=== PATIENT | female | born 2005 | race Caucasian/White ===

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

== ENCOUNTER 2024-03-23 09:05 | Emergency (ER) | payer MEDICAID, SELFPAY ==
[2024-03-23 09:07] VITALS: BP 123/67; PULSE 90; RESP 16; TEMP 36.7; O2SAT 97
--- NOTE | 2024-03-23 09:35 | HMH.EDGENADL ---
Discharge Plan Disposition Patient Disposition: Home, Self-Care Condition: Good Prescriptions Prescriptions: New cefadroxil 500 mg capsule 500 mg PO BID Qty: 10 0RF No Action norgestimate-ethinyl estradiol 1 EACH tablet 1 each PO DAILY omeprazole 20 MG capsule,delayed release(DR/EC) 20 mg PO DAILY paroxetine HCl 20 mg tablet 20 mg PO DAILY Patient Comments: TAKE 1 TABLET BY MOUTH DAILY. ergocalciferol (vitamin D2) 1,250 mcg (50,000 unit) capsule 50,000 unit PO WEEKLY Patient Comments: TAKE 1 CAPSULE BY MOUTH TWO TIMES A WEEK. montelukast 10 mg tablet 10 mg PO HS Patient Comments: TAKE 1 TABLET BY MOUTH NIGHTLY. loratadine 10 mg tablet 10 mg PO DAILY Patient Comments: TAKE 1 TABLET BY MOUTH DAILY. ibuprofen 400 mg tablet 400 mg PO Q8H PRN (Reason: pain) Qty: 20 0RF Referrals Follow up/Referrals: Ketan Fonseca [Primary Care Provider] - See instructions Isael Rodriguez MD [Staff Physician] - See instructions Activity Restrictions/Add. Instructions Additional Instructions/Restrictions: Stay well hydrated. Take anitbiotics as prescribed. Call Dr. Rodriguez office for follow up regarding blood in urine. Return if bleeding worsens or worsening pain despite ibuprofen and Tylenol at home. Follow-up the spleen lesion found on CT with your PCP. Please follow up with your primary care provider in 2-3 days. Please return to ED if your symptoms worsen, change in location, change in severity, new symptoms develop or if you become concerned for your health. Clinical Impressions Clinical Impression: Hematuria, Lesion of spleen Instructions Patient Instructions: DI for Acute Abdominal Pain Print Language Print Language: Tamazight Discharge ED Provider: Kishore Mcmahan Adult HPI General Chief complaint: Abdominal Pain Stated complaint: blood in urine,abd pain Time Seen by Provider: 03/23/24 09:16 Mode of Arrival: Ambulatory Source of Information: Patient Limitations: No Limitations Description of Symptoms (Recalled from ER Triage Doc. by RN): Complaint of lower abdomen pain with frequent bloody urination that started yesterday. History of Present Illness HPI narrative: Patient is a 18-year-old female with no significant past medical history who presents today for hematuria and suprapubic abdominal pain. She reports that her symptoms began last night around 8:30 PM she reports that she took some Tylenol and some ice packs and tried to lay down and was able to sleep through the night, but the pain was worse this morning. She reports that she was having some difficulty urinating yesterday, now is able to urinate after drinking more water, but reports persistent bright red blood in the urine. No clots visualized. She reports she is still having normal nonbloody bowel movements. Denying any nausea or vomiting or fevers. Denies radiation of the abdominal pain. No vaginal bleeding or vaginal discharge. Denies any chance of being . Related Data Home Medications ?Medication ?Instructions ?Recorded ?Confirmed norgestimate 0.25 mg-ethinyl 1 each PO DAILY control 02/15/20 07/03/22 estradiol 35 mcg tablet omeprazole 20 mg capsule,delayed 20 mg PO DAILY GERD 02/15/20 07/03/22 release ergocalciferol (vitamin D2) 1,250 50,000 unit PO WEEKLY Supplement 03/12/22 07/03/22 mcg (50,000 unit) capsule loratadine 10 mg tablet 10 mg PO DAILY Allergy symptoms 03/12/22 07/03/22 montelukast 10 mg tablet 10 mg PO HS Allergy symptoms 03/12/22 07/03/22 paroxetine HCl 20 mg tablet 20 mg PO DAILY Depression 03/12/22 07/03/22 Previous Rx's ?Medication ?Instructions ?Recorded ibuprofen 400 mg tablet 400 mg PO Q8H PRN pain #20 tabs 04/12/22 cefadroxil 500 mg capsule 500 mg PO BID #10 caps 03/23/24 Allergies Allergy/AdvReac Type Severity Reaction Status Date / Time No Known Allergies Allergy Verified 07/03/22 14:04 [facility] Disclaimer: The information contained in this section may have been updated after the patient was seen, as this information can be updated by other users. Social History Smoking Status: Current every day smoker alcohol intake: never current occupational status: other Travel in the last 8 weeks: Inside the [place] ROS Obtained: Yes All systems reviewed & no additional complaints except as documented Physical Exam General General appearance: alert and in no apparent distress Head Head exam: atraumatic and normocephalic Eye Eye exam: Present PERRL and EOMI ENT ENT exam: Present normal oropharynx Neck Neck exam: Present full ROM and trachea midline Chest Chest inspection: Present symmetric chest wall rise Respiratory Respiratory exam: Present normal lung sounds bilaterally; Absent stridor Cardiovascular Cardiovascular exam: Present regular rate and normal rhythm Abdominal Exam Abdominal exam: Present soft and tenderness (suprapubic and llq); Absent distention, guarding or rebound Extremities Exam Extremities exam: Present full ROM Neurological Exam Neurological exam: Present alert and oriented X3 Psychiatric Psychiatric exam: Present normal mood Skin Skin exam: Present warm and dry Medical Decision Making Medical Records Screening: Per USPSTF and CDC recommendations, given the prevalence of disease in our region, it is our hospital?s policy to screen for HIV and viral Hepatitis for all patients aged 18 and over and those with ongoing risk factors. Abel Inquiry Pt receiving controlled substance: No Vital Signs: 03/23/24 09:07 03/23/24 10:31 03/23/24 11:00 Temperature 98.0 F Temperature Source Oral Pulse Rate 64 61 Pulse Rate [Radial] 90 Respiratory Rate 16 Blood Pressure 103/43 L 91/54 L Blood Pressure [Right Arm] 123/67 Blood Pressure Mean 74 66 Blood Pressure Mean [Right Arm] 85 Blood Pressure Source Blood Pressure Source [Right Arm] Automatic Cuff Blood Pressure Position Blood Pressure Position [Right Arm] Sitting 02 Sat by Pulse Oximetry 97 99 99 Oxygen Delivery Method Room Air 03/23/24 12:00 03/23/24 12:50 Temperature 98.0 F Temperature Source Oral Pulse Rate 64 Pulse Rate [Radial] Respiratory Rate 16 Blood Pressure 102/56 L 102/56 L Blood Pressure [Right Arm] Blood Pressure Mean 70 Blood Pressure Mean [Right Arm] Blood Pressure Source Automatic Cuff Blood Pressure Source [Right Arm] Blood Pressure Position Sitting Blood Pressure Position [Right Arm] 02 Sat by Pulse Oximetry Oxygen Delivery Method Room Air Lab Data Lab Results 03/23/24 09:13: Urine Color Yellow, Urine Appearance Clear, Urine pH 6.0, Ur Specific [place] 1.020, Urine Protein Trace, Urine Glucose (UA) Negative, Urine Ketones Negative, Urine Blood 3+ A, Urine Nitrate Negative, Urine Bilirubin Negative, Urine Urobilinogen 0.2, Ur Leukocyte Esterase 1+ A, Urine RBC 5-10, Urine WBC 3-5, Ur Squamous Epith Cells None, Urine Bacteria Trace 03/23/24 09:26: WBC 13.8 H, RBC 4.12 L, Hgb 13.5, Hct 41.4, MCV 100.5 H, MCH 32.8 H, MCHC 32.6, RDW 13.4, Plt Count 255, MPV 6.8 L, Neut % (Auto) 79.7, Lymph % (Auto) 15.0, [place] % (Auto) 3.8, Eos % (Auto) 1.0, Baso % (Auto) 0.5, Neut # (Auto) 11.0 H, Lymph # (Auto) 2.1, [place] # (Auto) 0.5, Eos # (Auto) 0.1, Baso # (Auto) 0.1, Total Counted 100, Neutrophils % (Manual) 77 H, Lymphocytes % (Manual) 21, Monocytes % (Manual) 2, Platelet Estimate Normal, Macrocytosis 1+, Sodium 139, Potassium 3.4 L, Chloride 105, Carbon Dioxide 27, Anion Gap 10.4, BUN 7, Creatinine 0.60, Estimated Creat Clear 138, Estimated GFR 129, Est GFR ( Amer) 156, Glucose 85, Calcium 9.1, Total Bilirubin 0.4, AST 33, ALT 19, Alkaline Phosphatase 77, Total Protein 7.5, Albumin 4.8, Globulin 2.7, Albumin/Globulin Ratio 1.8, Lipase 65, Serum HCG, Qual Negative, HIV 1&2 Antibody Rapid Nonreactive 03/23/24 09:26 03/23/24 09:26 Orders (Tests/Meds): ED MEDICATIONS Discontinued Medications Generic Name Dose Route Start Last Admin Trade Name Freq PRN Reason Stop Dose Admin Lactated Ringer's 1,000 mls @ 999 mls/hr 03/23/24 09:48 03/23/24 09:53 Lactated Ringer's 1000 Ml Bag IV 03/23/24 10:48 999 mls/hr .Q1H1M ONE Administration Iopamidol 75 ml 03/23/24 10:25 03/23/24 10:26 Iopamidol-370 (76%);100ml Bottle IV 03/23/24 10:26 75 ml ONCE ONE Administration Ketorolac Tromethamine 15 mg 03/23/24 09:48 03/23/24 09:53 Ketorolac 30mg/Ml Vial IV 03/23/24 09:49 15 mg ONCE ONE Administration Sodium Chloride 10 ml 03/23/24 09:32 Sodium Chloride 0.9% 10ml Flush Syringe IV 04/22/24 09:31 NEEDED PRN Maintain IV Site Sodium Chloride 10 ml 03/23/24 10:25 03/23/24 10:26 Sodium Chloride 0.9% 10ml Syr (Rad Only) IV 04/22/24 10:24 10 ml NEEDED PRN Administration Maintain IV Site ORDERS Category Date Time Status CT abdomen pelvis w con Stat Cat Scan 03/23/24 09:48 Completed Complete Blood Count Man Dif Stat Lab 03/23/24 09:26 Completed Comprehensive Metabolic Panel Stat Lab 03/23/24 09:26 Completed HCG Qualitative, Serum Stat Lab 03/23/24 09:26 Completed HIV (1&2) Antibody Rapid Stat Lab 03/23/24 09:26 Completed Hep C Ab with Reflex to RNA Stat Lab 03/23/24 09:26 Received Lipase Stat Lab 03/23/24 09:26 Completed UA [Urinalysis and Microscopic] Stat Lab 03/23/24 09:13 Completed Urine Culture Stat Micro 03/23/24 09:13 Received Medical Decision Narrative: In summary, this 18-year-old female presents to the emergency department today with suprapubic abdominal pain and hematuria. On initial evaluation patient is afebrile, hemodynamically stable and in no acute distress.. Differential diagnosis includes but is not limited to hemorrhagic cystitis, pyelonephritis, nephrolithiasis, ureterolithiasis, JOSEFINA. Based on these concerns, I ordered CBC CMP lipase CT abdomen pelvis urinalysis test. Patient received Toradol for treatment. Labs personally reviewed demonstrate no evidence of anemia, mild leukocytosis to 13.8, favored to be reactive. Mild hypokalemia 3.4. Urinalysis notable for 3+ blood, +1 leukocyte esterase with trace bacteria. Given patient's consistent symptoms with possible hemorrhagic cystitis, will treat with cefadroxil outpatient. Patient will be given outpatient urology follow-up if blood in urine persists. CT imaging personally interpreted demonstrate no acute intra-abdominal pathology.Spontaneous diagnosed in 12 of this is confirmed by the radiologist final read. Increased vascularity of a splenic lesion which could represent hemangioma. Patient made aware of this finding and will follow-up outpatient.. On reassessment patient reports improvement in her pain, still having some scant hematuria. Made aware of that this could be secondary to infection or urinary tract infection. Will treat with antibiotics and should blood in urine persist, she is given outpatient follow-up for urology and possible cystoscopy outpatient.. Patient is tolerating oral intake in the emergency department and has remained in no acute distress with no significant vital sign changes. At this time it was felt that the patient was safe to be discharged home. The patient was in agreement with this plan. The patient was given strict return precautions prior to being discharged from the emergency department. Critical Care Critical Care Time Critical Care Time: No
[2024-03-23 09:40] LABS: Microscopic, Urine URINE MICROSCOPIC (MICROSCOPIC)
[2024-03-23 09:40] LABS: MANUAL DIFFERENTIAL MANUAL DIFFERENTIAL (MANUAL DIFF)
--- NOTE | 2024-03-23 09:48 | CT_ITS ---
FINAL REPORT TECHNIQUE: After the administration of oral and intravenous contrast, axial images were obtained through the abdomen and pelvis by computed tomography. The study was performed with techniques to keep radiation dose as low as reasonably achievable, (ALARA). Individual dose reduction techniques using automated exposure control or adjustment of mA and/or kV according to the patient's size were employed. CLINICAL HISTORY: suprapubic and rlq ttp, hematuria COMPARISON: None FINDINGS: Abdomen: The lung bases are clear. The liver parenchyma is homogeneous. The gallbladder is present. There is a rounded l low-attenuation lesion in the spleen measuring 2.5 cm in diameter seen on image 25 of series 3. On coronal imaging, there is increased peripheral vascularity of this lesion. The pancreas, adrenals and kidneys appear unremarkable. The aorta is normal in caliber. There is no free fluid or adenopathy. Pelvis: The appendix is not identified. There are no secondary findings of appendicitis. The uterus is anteverted. The urinary bladder is unremarkable. There is no free fluid or adenopathy. IMPRESSION: Splenic lesion with increased vascularity at the margin which could represent hemangioma. Follow-up ultrasound recommended. No localized mass or inflammatory reaction. Reviewed, Interpreted and Dictated by Kyle Morse MD Transcribed by Mariama England Authenticated and [facility]
[2024-03-23 09:49] LABS: Appearance,Urine CLEAR (Clear); Bilirubin,Urine Negative (Negative); Blood, Urine 3+ (Negative); Color,Urine YELLOW (Yellow); Glucose,Urine (UA) Negative (Negative); Ketones,Urine Negative (Negative); Leukocyte Esterase,Urine 1+ (Negative); Nitrate,Urine Negative (Negative); Protein,Urine TRACE (Negative); Urobilinogen,Urine 0.2 EU/dl (0.2)
[2024-03-23 09:49] LABS: Albumin Level 4.8 g/dl (3.5-5.0); Chloride 105 mmol/L (98-107); Potassium 3.4 mmoL/L (3.5-5.1); Sodium 139 mmol/L (136-145)
[2024-03-23 09:52] LABS: Alanine Aminotransferase 19 U/L (12-78); Albumin/Globulin Ratio 1.8 (1.1-1.8); Alkaline Phosphatase 77 U/L (38-126); Anion Gap 10.4 mEq/L (5-15); Aspartate Amino Transferase 33 U/L (14-36); Bilirubin,Total 0.4 mg/dl (0.2-1.3); Blood Urea Nitrogen 7 mg/dl (7-17); Carbon Dioxide 27 mmol/L (22.0-30.0); Creatinine Clearance Estimated 138 mL/min (50-200); Estimated Glomerular Filt Rate 129 ml/min (>60); GFR (African American) 156 ML/MIN (>60); Globulin 2.7 g/dL (1.3-3.2); Total Protein,Serum 7.5 g/dl (6.3-8.2)
[2024-03-23 09:53] LABS: Calcium 9.1 mg/dl (8.4-10.2); Glucose 85 mg/dl (74-100)
[2024-03-23] MEDS: LACTATED RINGERS 1000ML 1,000 ML 999 ML IV (09:53)
[2024-03-23] MEDS: KETOROLAC 30MG/ML VIAL 15 MG IV (09:53)
[2024-03-23 10:04] LABS: Basophils # 0.1 K/mm3 (0-0.2); Basophils % 0.5 % (0.1-2.0); Eosinophils # 0.1 K/mm3 (0.0-0.4); Hematocrit 41.4 % (37.0-47.0); Hemoglobin 13.5 g/dL (12.2-16.2); Lymphocytes # 2.1 K/mm3 (0.7-4.5); Mean Corpuscular HGB Conc 32.6 g/dL (31.8-35.4); Mean Corpuscular Hemoglobin 32.8 pg (27.0-31.2); Mean Corpuscular Volume 100.5 fl (81-99); Mean Platelet Volume 6.8 fl (7.4-10.4); Monocytes # 0.5 K/mm3 (0.1-1.0); Monocytes % 3.8 % (1.7-9.3); Neutrophils % 79.7 % (37.0-80.0); Platelet Count 255 K/mm3 (142-424); Red Blood Count 4.12 M/mm3 (4.20-5.40); Red Cell Distribution Width 13.4 % (11.5-17.5); White Blood Count 13.8 K/mm3 (4.5-13.0)
[2024-03-23 10:06] LABS: Lipase 65 U/L (23-300)
[2024-03-23 10:09] LABS: Bacteria,Urine Trace /lpf
[2024-03-23 10:09] LABS: HCG Qualitative, Serum Negative (Negative)
[2024-03-23] MEDS: IOPAMIDOL-370 (76%);100ML BOTTLE 75 ML IV (10:26)
[2024-03-23] MEDS: SODIUM CHLORIDE 0.9% 10ML SYR (RAD ONLY) 10 ML IV (10:26)
[2024-03-23 10:31] VITALS: BP 103/43; PULSE 64; O2SAT 99
[2024-03-23 11:00] VITALS: BP 91/54; PULSE 61; O2SAT 99
[2024-03-23 11:20] LABS: HIV (1&2) Antibody Rapid NONREACTIVE (NONREACTIVE)
[2024-03-23 11:34] LABS: Lymphocytes % 21 % (10-50); Macrocytosis 1+; Monocytes % 2 % (2-9); Neutrophils % 77 % (42-76); Platelet Estimate Normal; Total Cells Counted 100
[2024-03-23 12:00] VITALS: BP 102/56
--- NOTE | 2024-03-23 12:32 | PC.NURSE ---
DR ZEPEDA AT BEDSIDE TO UPDATE PT
[2024-03-23 12:50] VITALS: BP 102/56; PULSE 64; RESP 16; TEMP 36.7; O2SAT 99
[2024-03-24 05:10] LABS: HCV Ab Non Reactive (Non Reactive)
== END 2024-03-23 12:50 | disposition home or self-care (01) ==
PROVIDERS: Emergency Provider Emergency Medicine; PCP Pediatrics
DX: R31.9 Hematuria, unspecified (principal); D73.89 Other diseases of spleen; R10.30 Lower abdominal pain, unspecified
CPT/HCPCS: 74177; 80053; 81001; 83690; 84703; 85007; 85014; 85018; 85048; 85049; 86803; 87086; 87389; 96361; 96374; 99284; J1885; J7120; Q9967

== ENCOUNTER 2024-05-13 22:21 | Emergency (ER) | payer MEDICAID, SELFPAY ==
[2024-05-13 22:22] VITALS: BP 160/99; PULSE 88; RESP 18; TEMP 36.6; O2SAT 98; BMI 20.3
[2024-05-13 22:27] VITALS: BMI 20.3
--- OUTSIDE RECORDS SUMMARY | 2024-05-13 22:27 | XMS_ITS | Encounter Summary ---
Author Organization [facility] Address [address] [place] [id number] Care Team Providers Care Academic Counselor Name Role Phone Georges Wong M.D. Primary Care Provider [phone] Encounter Details Date Type Department Care Team (Late st Contact Info) Description 2004 Orders Only [facility] Department of Radiology [address] [place] [id number] [place] [address] Social History Tobacco Use Types Packs/Day Years Used Date Smoking Tobacco: Never Assessed Comments Unknown Sex and Gender Information Value Date Recorded Sex Assigned at Not on file Legal Sex Female 5:17 AM EST Gender Identity Not on file Sexual Orientation Not on file documented as of this encounter Plan of Treatment Not on file documented as of this encounter Procedures Procedure Name Priority Date/Time Associated Diagnosis Comments ULT HIPS RADIOLOGIST ONLY Routine 2004 6:14 PM EST documented in this encounter Results * ULT HIPS DDH (2004 6:14 PM EST) Anatomical Region Laterality Modality ULT MISCELLANEOUS Ultrasound 2004 6:14 PM EST Narrative 2004 7:19 PM EST CLINICAL HISTORY: ??Right hip click. FINDINGS: ?? Right hip: The bony roof of the acetabulum is well-formed and covers more than 50% of the femoral head in neutral position. The superior bony acetabular rim is angular. ??The cartilaginous acetabular roof is narrow and satisfactorily covers the femoral head. ??The labrum is in normal position. During dynamic testing (Chakraborty) there was no instability demonstrated. Left hip: The bony roof of the acetabulum is well-formed and covers more than 50% of the femoral head in neutral position. The superior bony acetabular rim is angular. ??The cartilaginous acetabular roof is narrow and satisfactorily covers the femoral head. ??The labrum is in normal position. During dynamic testing (Chakraobrty) there was no instability demonstrated. IMPRESSION: ??Normal ultrasound examination. ??(Broughton Type I acetabular morphology). ??No dynamic instability. ??In the absence of other disorders, this hip is unlikely to become dislocated and requires no further ultrasound follow-up. ??(The hips should continue to be examined clinically at routine clinical assessments). Ordering Physician: LANDON HO Attending Physician: NICOLA BHAKTA Procedure Note Nicola Bhakta M.D. - 06/26/2009 CLINICAL HISTORY: Right hip click. FINDINGS: Right hip: The bony roof of the acetabulum is well-formed and covers more than 50%of the femoral head in neutral position. The superior bony acetabular rim is angular. The cartilaginous acetabularroof is narrow and satisfactorily covers the femoral head. The labrum is in normalposition. During dynamic testing (Chakraborty) there was no instability demonstrated. Left hip: The bony roof of the acetabulum is well-formed and covers more than 50%of the femoral head in neutral position. The superior bony acetabular rim is angular. The cartilaginous acetabularroof is narrow and satisfactorily covers the femoral head. The labrum is in normalposition. During dynamic testing (Chakraborty) there was no instability demonstrated. IMPRESSION: Normal ultrasound examination. (Broughton Type I acetabularmorphology). No dynamic instability. In the absence of other disorders, this hip is unlikely tobecome dislocated and requires no further ultrasound follow-up. (The hips should continue to beexamined clinically at routine clinical assessments). Ordering Physician: LANDON HO Attending Physician: NICOLA BHAKTA us Landon Ho M.D. US ORDERABLES Final Resu lt documented in this encounter Visit Diagnoses Not on filedocumented in this encounter Care Teams Academic Counselor Relationship Specialty Start Date End Date [place] [address] PCP - General 06/14/08 documented as of this encounter
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
--- OUTSIDE RECORDS SUMMARY | 2024-05-13 22:27 | XMS_ITS | Clinical Summary ---
Author Organization [facility] Address [address] [place] [address] Care Team Providers Care Manufacturing Software Engineer Name Role Phone Georges Wong M.D. Primary Care Provider [phone] Source Comments [facility] is fully rolled out with thefollowing exceptions:General Clinical Research [facility] Allergies No known active allergies Medications No known medications Social History Tobacco Use Types Packs/Day Years Used Date Smoking Tobacco: Never Assessed Comments Unknown Sex and Gender Information Value Date Recorded Sex Assigned at Not on file Legal Sex Female 5:17 AM EST Gender Identity Not on file Sexual Orientation Not on file Last Filed Vital Signs Vital Sign Reading [...] - - Body Mass Index - - Plan of Treatment Health Maintenance Due Date Last Done Comments MMR IMMUNIZATION (1 of 1 - Standard series) 2005 DTAP/Tdap/Td IMMUNIZATION (1 - Tdap) 2011 VARICELLA IMMUNIZATION (1 of 2 - 13+ 2-dose series) 2017 HPV IMMUNIZATION (1 - 3-dose series) 2019 HEPATITIS B IMMUNIZATION (1 of 3 - 19+ 3-dose series) 2023 AMB SEASONAL FLU VACCINE (#1) 02/23/2024 COVID-19 Vaccine (1 - 2023-2 5 season) 2024 HIB IMMUNIZATION Aged Out No longer e ligible based on patient's age to complete this topic IPV IMMUNIZATION Aged Out No longer e ligible based on patient's age to complete this topic MCV4 IMMUNIZATION Aged Out No longer eligible based on patient's age to complete this topic PNEUMOCOCCAL IMMUNIZATION Aged Out No longer eligible based on patient's age to complete this topic Respiratory Syncytial Virus (RSV) <20mo Aged Out No longer eligible b ased on patient's age to complete this topic Care Teams Manufacturing Software Engineer Relationship Specialty Start Date End Date Georges Wong M.D. [facility] [address] [place] [address] PCP - General 06/14/08
--- OUTSIDE RECORDS SUMMARY | 2024-05-13 22:27 | XMS_ITS | Encounter Summary ---
Author Organization [facility] Address [address] [place] [address] Care Team Providers Care Rn Womens Health Name Role Phone Unavailable Primary Care Provider Unavailabl e Encounter Details Date Type Department Care Team (Late st Contact Info) Description 2004 Hospital Encounter [facility] Department of Radiology [address] [place] [phone] Social History Tobacco Use Types Packs/Day Years Used Date Smoking Tobacco: Never Assessed Comments Unknown Sex and Gender Information Value Date Recorded Sex Assigned at Not on file Legal Sex Female 5:17 AM EST Gender Identity Not on file Sexual Orientation Not on file documented as of this encounter Plan of Treatment Not on file documented as of this encounter Visit Diagnoses Not on filedocumented in this encounter
--- OUTSIDE RECORDS SUMMARY | 2024-05-13 22:28 | XMS_ITS | Encounter Summary ---
Author Organization [place] [address] Care Team Providers Care Earth Science Technician Name Role Phone Maryann Figueroa APRN Primary Care Provider [phone] Reason for Visit * Reason Onset Date Comments Medication Refill 04/28/2023 Encounter Details Date Type Department Care Team (Late Contact Info) Description 04/28/2023 Refill [facility] [address] [place] [address] Heaven Alamo MD Medication Refill Social History Tobacco Use Types Packs/Day Years Used Date Smoking Tobacco: Every Day Cigarettes Last attempted to quit: 2015 Smokeless Tobacco: Never Alcohol Use Standard Drinks/Week Comments No 0 (1 standard drink = 0.6 oz pur e alcohol) Overall Financial Resource Strain (CARDIA) Answe r Date Recorded How hard is it for you to pa y for the very basics like food, housing, medical care, and heating? Not hard at all 02/23/2020 PHQ-2 Answer Date Recorded PHQ-2 Score 0 11/14/2018 Hunger Vital Sign Answer Date Recorded Within the past 12 months, y ou worried that your food would run out before you got the money to buy more. Never true 02/23/20 20 Within the past 12 months, t he food you bought just didn't last and you didn't have money to get more. Never true 02/23/2020 PRAPARE - Transportation Answer Date Re corded In the past 12 months, has l ack of transportation kept you from medical appointments or from getting medications? No 06/2019 In the past 12 months, has l ack of transportation kept you from meetings, work, or from getting things needed for daily living? No 02/23/2020 Sexually Active Control Partners Comments Never Comments No Sex and Gender Information Value Date Recorded Sex Assigned at Not on file Legal Sex Female 6:55 AM EDT Gender Identity Not on file Sexual Orientation Not on file documented as of this encounter Ordered Prescriptions Prescription Sig Dispense Quantity Refills Last Filled Start Date End Date montelukast (SINGULAIR) 10 mg Oral TabletIndications: Bilateral chronic serous otitis media Take 1 Tablet by mouth nightly. 30 Tablet 2 04/29/2023 09/20/2023 documented in this encounter Plan of Treatment Not on file documented as of this encounter Goals Goal Patient Goal Type Associated Problems Recent Progress Patient-Stated? Author Maintain a healthy diet, exercise regularly and maintain an ideal body weight General No Tyra Ferreira CCMA Stay Tobacco Free Lifestyle No Shakira Light CCMA documented as of this encounter Visit Diagnoses Diagnosis Bilateral chronic serous otitis media Simple or unspecified chronic serous otitis media documented in this encounter Discontinued Medications Medication Sig Discontinue Reason Start Date End Da te montelukast (SINGULAIR) 10 mg Oral TabletIndications:Bilate ral chronic serous otitis media Take 1 Tablet by mouth nightly. Reorder 09/18/2022 04/28/2023 documented as of this encounter Care Teams Earth Science Technician Relationship Specialty Start Date End Date Maryann Fig[place]ero[place] [address] [place] [address] PCP - General Nurse Practitioner-Family 05/21/17 documented as of this encounter
--- OUTSIDE RECORDS SUMMARY | 2024-05-13 22:28 | XMS_ITS | Encounter Summary ---
Author Organization [facility] [place] [address] Care Team Providers Care Parole Board Member Name Role Phone Maryann Figueroa APRN Primary Care Provider [phone] Reason for Visit * Reason Comments Medication Refill Encounter Details Date Type Department Care Team (Late st Contact Info) Description 08/18/2022 Refill [facility] [address] [place] [phone] Maryann Figueroa APRN [address] [place], [place] [id number] Medication Refill Social History Tobacco Use Types [...] Refills Last Filled Start Date End Date ergocalciferol (DRISDOL) 1,250 mcg (50,000 unit) Oral Capsule Take 1 capsule by mouth two times a week. 4 Capsule 3 08/20/2022 documented in this encounter Plan of Treatment [...] Diagnoses Not on filedocumented in this encounter Discontinued Medications Medication Sig Discontinue Reason Start Date End Da te ergocalciferol (DRISDOL) 1,250 mcg (50,000 unit) Oral Capsule Take 1 capsule by mouth two times a week. 05/03/2022 08/20/2022 documented as of this encounter Care Teams Parole Board Member Relationship Specialty Start Date End Date Maryann Figueroa APRN [address] [place], [place] [address] PCP - General Nurse Practitioner-Family 05/21/17 documented as of this encounter
--- OUTSIDE RECORDS SUMMARY | 2024-05-13 22:28 | XMS_ITS | Encounter Summary ---
Author Organization [facility] [place] [address] Care Team Providers Care Meat Team Lead Name Role Phone Maryann Figueroa APRN Primary Care Provider [phone] Reason for Visit * Reason Comments Otalgia Left ear Encounter Details Date Type Department Care Team (Late st Contact Info) Description 08/14/2022 9:10 AM EST Office Visit [facility] [place] [address] [phone] William Fonseca MD [address] [place] [address] [place] [address] Acute otitis media with effusion of left ear (Primary Dx) Social History Tobacco Use Types Packs/Day Years Used Date Smoking Tobacco: Every Day Cigarettes Last attempted to quit: 2016 Smokeless Tobacco: Never Tobacco Cessation:Ready to Q uit: Not Asked; Counseling Given: Not Answered Alcohol Use Standard Drinks/Week Comments No 0 [...] Sign Reading Time Taken Comments Blood Pressure 120/74 08/14/2022 9:17 AM EST Pulse 78 08/14/2022 9:17 AM EST Temperature 36.8 ??C (98.2 ??F) 08/14/2022 9:17 AM ES T Respiratory Rate 18 08/14/2022 9:17 AM EST Oxygen Saturation 98% 08/14/2022 9:17 AM EST Inhaled Oxygen Concentration - - Weight 57.2 kg (126 lb) 08/14/2022 9:17 AM EST Height 166.4 cm (5' 5.5 ) 08/14/2022 9:17 AM EST Body Mass Index 20.65 08/14/2022 9:17 AM EST Body Mass Index Percentile 41.59% 08/14/2022 9:1 7 AM EST Growth Chart: [facility] (Girls, 2- 20 Years) documented in this encounter Ordered Prescriptions Prescription Sig Dispense Quantity Refills Last Filled Start Date End Date amoxicillin (AMOXIL) 875 mg Oral TabletIndications: Acute otitis media with effusion of left ear Take 1 Tablet by mouth 2 times daily for 7 days. 14 Tablet 08/14/2022 08/21/2022 documented in this encounter Progress Notes * William Fonseca MD - 08/14/2022 9:10 AM EST Assessment Diagnoses and all orders for this visit: Acute otitis media with effusion of left ear - amoxicillin (AMOXIL) 875 mg Oral Tablet; Take 1 Tablet by mouth 2 times daily for 7 days. Dispense: 14 Tablet; Refill: 0 Will treat left otitis media with amoxicillin per above follow-up as needed Progress Note: Vitals: 08/14/22 0917 BP: 120/74 Pulse: 78 Resp: 18 Temp: 98.2 ??F (36.8 ??C) TempSrc: Temporal SpO2: 98% Weight: 126 lb (57.2 kg) Height: 5' 5.5 (1.664 m) SUBJECTIVE: Chief Complaint Patient presents with ??? Otalgia Left ear HPI: Minda has one week of ear pain with associated muffled hearing and a sensation of fluid in her ear. She has frequent ear infections for which antibiotics usually provide relief. No fevers. No known sick contacts. No other upper respiratory sx such as nasal congestion or sore throat. Review of Systems Constitutional: Negative for fatigue and fever. HENT: Positive for ear pain and hearing loss. Negative for congestion, rhinorrhea, sinus pressure, sinus pain, sneezing and sore throat. Respiratory: Negative for cough. Cardiovascular: Negative for leg swelling. Gastrointestinal: Negative for nausea and vomiting. Musculoskeletal: Negative for myalgias. Neurological: Negative for headaches. OBJECTIVE: Physical Exam HENT: Right Ear: Hearing, ear canal and external ear normal. No middle ear effusion. Tympanic membrane isscarred. Left Ear: A middle ear effusion is present. Ears: Comments: Left otitis media Nose: Nose normal. Mouth/Throat: Mouth: Mucous membranes are moist. Pharynx: Oropharynx is clear. Eyes: Pupils: Pupils are equal, round, and reactive to light. Cardiovascular: Rate and Rhythm: Normal rate and regular rhythm. Pulses: Normal pulses. Heart sounds: Normal heart sounds. Pulmonary: Effort: Pulmonary effort is normal. Breath sounds: Normal breath sounds. Abdominal: General: Abdomen is flat. Palpations: Abdomen is soft. Skin: General: Skin is warm and dry. Capillary Refill: Capillary refill takes less than 2 seconds. Neurological: General: No focal deficit present. Mental Status: She is alert. documented in this encounter Plan of Treatment Not on file documented as of this encounter Goals Goal Patient Goal Type Associated Problems Recent Progress Patient-Stated? Author Maintain a healthy diet, exercise regularly and maintain an ideal body weight General No Tyra Ferreira CCMA Stay Tobacco Free Lifestyle No Shakira Light CCMA documented as of this encounter Visit Diagnoses Diagnosis Acute otitis media with effusion of left ear- Primary documented in this encounter Care Teams Meat Team Lead Relationship Specialty Start Date End Date Maryann Figueroa APRN [address] [place] [address] PCP - General Nurse Practitioner-Family 05/21/17 documented as of this encounter
--- OUTSIDE RECORDS SUMMARY | 2024-05-13 22:28 | XMS_ITS | Encounter Summary ---
Author Organization [facility] [place] [address] Care Team Providers Care Food And Beverage Server Name Role Phone Maryann Figueroa APRN Primary Care Provider [phone] Encounter Details Date Type Department Care Team (Latest Contact Info) Description 03/28/2023 Travel Social History Tobacco Use Types Packs/Day Years [...] on filedocumented in this encounter Care Teams Food And Beverage Server Relationship Specialty Start Date End Date Maryann Figueroa APRN [address] [place], [place] [address] PCP - General Nurse Practitioner-Family 05/21/17 documented as of this encounter
--- OUTSIDE RECORDS SUMMARY | 2024-05-13 22:28 | XMS_ITS | Encounter Summary ---
Author Organization [place] [address] Care Team Providers Care Operation Manager Name Role Phone Maryann Figueroa APRN Primary Care Provider [phone] Reason for Visit * Reason Comments Medication Refill Encounter Details Date Type Department Care Team (Late st Contact Info) Description 01/25/2024 Refill [facility] [address] [place] [phone] Maryann Figueroa APRN [address] [place] [address] Medication Refill Social History Tobacco Use Types [...] End Date montelukast (SINGULAIR) 10 mg Oral TabletIndications:B ilateral chronic serous otitis media Take 1 Tablet by mouth nightly. 30 Tablet 2 01/27/2024 documented in this encounter Miscellaneous Notes * Telephone Encounter - Mayra Preston CPhT - 01/27/2024 3:23 PM EDT Montelukast- Medication refill request deferred to office staff. Min Reason: Please review diagnosis associated with medication. documented in this encounter Plan of Treatment [...] media Take 1 Tablet by mouth nightly. 09/20/2023 01/27/2024 documented as of this encounter Care Teams Operation Manager Relationship Specialty Start Date End Date Maryann Fig[place]ero[place] [address] [place] [address] PCP - General Nurse Practitioner-Family 05/21/17 documented as of this encounter
--- OUTSIDE RECORDS SUMMARY | 2024-05-13 22:28 | XMS_ITS | Referral Summary ---
Author Organization [facility] ALIE GRANT Address [address] [place] [address] Phone Care Team Providers Care Natural Gas Plant Technician Name Role Phone Maryann Figueroa APRN Primary Care Provider Encounters Date Type Department Care Team Description 04/13/2024 9:40 AM EDT Office Visit [place] [address] [place] [address] Ketan Fonseca MD Splenic lesion (Primary Dx) 04/12/2024 Travel 03/26/2024 Refill [place] [address] [place] [address] Maryann Figueroa APRN Medication Refill 03/17/2024 Travel 03/17/2024 1:20 PM EDT Telemedicine [place] [address] [address] [place] [address] Ketan Fonseca MD Major depressive disorder, recurrent episode, mild (HCC) (Primary Dx) from Last 3 Months Allergies No known active allergies Medications omeprazole (PRILOSEC) 20 mg Oral Capsule, Delayed Release(E.C.) Take 1 Capsule by mouth daily. 30 Capsule Active loratadine (CLARITIN) 10 mg Oral TabletIndicatio ns:Acute middle ear effusion, left,Seasonal allergic rhinitis due to pollen Take 1 Tablet by mouth daily. 30 Tablet 2 4 Active montelukast (SINGULAIR) 10 mg Oral TabletIndicatio ns:Bilateral chronic serous otitis media Take 1 Tablet by mouth nightly. 30 Tablet 2 4 Active desvenlafaxine succinate (PRISTIQ) 50 mg Oral Tablet Sustained Release 24 hrIndications:M rob depressive disorder, recurrent episode, mild (HCC) Take 1 Tablet by mouth daily. 30 Tablet 3 4 Active chlorhexidine (HIBICLENS) 4 % Top LiquidIndicatio ns:Acne vulgaris Apply topically as needed for Wound Care. 473 mL 1 4 Active clindamycin-fauzia zoyl peroxide (BENZACLIN) Top GelIndications: Acne vulgaris Apply topically 2 times daily. 50 g 2 4 Active ergocalciferol (DRISDOL) 1,250 mcg (50,000 unit) Oral Capsule Take 1 Capsule by mouth two times a week. 4 Capsule 3 4 Active Active Problems Problem Noted Date Diagnosed Date Vitamin D deficiency 04/18/2022 Overview (04/18/2022): On replacement. Tinnitus, bilateral 01/03/2022 Ear pain, bilateral 01/03/2022 Conductive hearing loss of l eft ear with unrestricted hearing of right ear 01/03/2022 Marijuana use 09/29/2021 Assessment & Plan (09/29/2021 2:38 PM EDT): Encouraged cessation Cigarette smoker 09/29/2021 Assessment & Plan (09/29/2021 2:38 PM EDT): Encouraged cessation Major depressive disorder, recurrent episode, mi ld 04/07/2020 Overview (04/18/2022): Side effects to effexor in past Improved, would like to wean off paxil Insomnia, persistent 07/02/2017 Overview (11/14/2021): Night time routine Avoid caffeine, stop smoking cigs and MJ. Ok for PRN trazodone. Difficulty concentrating 07/02/2017 Overview (07/02/2017): Increase tenex to twice a day. If no daytime improvement should follow-up in 4 weeks to discuss further treatment. Given linden forms to get completed before next appointment. Immunizations Name Administration Dates Next Due DTaP 02/24/2009, 6,02/14/2005,11/30,2004 DTaP, Unspecified Formulation 02/24/2009 ,02/11/2006,02/14/2005,11/30 DTaP/Hep B/IPV 2004 HPV 9 Valent 11/21/2017,05/21/2017 Hepatitis A, Ped/Adol, 2 Dose 11/21/2017, 017 Hepatitis B, Ped/Adol 02/11/2006,03/22/2005,06/25 HiB (PRP-OMP) 02/14/2005,2004,2004 HiB, Unspecified Formulation 02/14/2005,11/25/19 05,2004 IPV 02/24/2009, 5,2004,09/19 Influenza Vaccine Quadrivalent 05/21/2017 LAST MANUFACTURED 2010-Pneum ococcal Conjugate 7 Valent 02/14/2005,2004,2004 MMR 02/24/2009,08/01/2005 Meningococcal Conjugate 08/23/2020,02/20/2016 Meningococcal MCV4, Unspecif ied Formulation 02/20/2016 Surreal Ink SARS-CoV-2 Bivalent B ooster Vaccine 12+ Years ([place] border) 04/18/2022 Pfizer SARS-CoV-2 Vaccine Tr is-Sucrose 12+ Years ([place] Cap) 09/29/2021,08/29/2021 Pneumococcal Conjugate Vacci ne 13 Valent 02/14/2005,2004,2004 Tdap 02/20/2016 Varicella 02/24/2009,08/01/2005 Social History Tobacco Use Types Packs/Day Years [...] all 02/23/2020 PHQ-2 Answer Date Recorded PHQ-2 Total Score 0 04/13/2024 Hunger Vital Sign Answer Date Recorded Within [...] Sign Reading Time Taken Comments Blood Pressure 112/76 04/13/2024 9:45 AM EDT Pulse 98 04/13/2024 9:45 AM EDT Temperature 36.6 ??C (97.8 ??F) 04/13/2024 9:45 AM ED T Respiratory Rate 20 04/13/2024 9:45 AM EDT Oxygen Saturation 99% 04/13/2024 9:45 AM EDT Inhaled Oxygen Concentration - - Weight 61.9 kg (136 lb 6.4 oz) 04/13/2024 9:45 A M EDT Height 166.4 cm (5' 5.5 ) 01/11/2023 1:29 PM EDT Body Mass Index 22.35 01/11/2023 1:29 PM EDT Plan of Treatment Not on file Goals Goal Patient Goal Type Associated Problems Recent Progress Patient-Stated? Author Maintain a healthy diet, exercise regularly and maintain an ideal body weight General No Tyra Ferreira CCMA Stay Tobacco Free Lifestyle No Osgood, Shakira, CCMA Insurance [address] [place] [id number] [facility] [place] [address] [place] [facility] [place] [address] [facility] [place] [address] MDR Advance Directives For more information, please contact: [phone] Documents on File Type Date Recorded Patient Manager Apple Expl anation GUARDIANSHIP ORDER 05/21/2017 2:00 PM Care Teams Natural Gas Plant Technician Relationship Specialty Start Date End Date Maryann Figueroa APRN [address] [place] [address] PCP - General Nurse Practitioner-Family 05/21/17
--- OUTSIDE RECORDS SUMMARY | 2024-05-13 22:28 | XMS_ITS | Encounter Summary ---
Author Organization [facility] [place] [address] Care Team Providers Care Safety Counselor Name Role Phone Maryann Figueroa APRN Primary Care Provider [phone] Encounter Details Date Type Department Care Team (Latest Contact Info) Description 04/12/2024 Travel Social History Tobacco Use Types Packs/Day [...] on filedocumented in this encounter Care Teams Safety Counselor Relationship Specialty Start Date End Date Maryann Figueroa APRN [address] [place], [place] [address] PCP - General Nurse Practitioner-Family 05/21/17 documented as of this encounter
--- OUTSIDE RECORDS SUMMARY | 2024-05-13 22:28 | XMS_ITS | Encounter Summary ---
Author Organization [facility] [place] [address] Care Team Providers Care Wringer And Setter Name Role Phone Maryann Figueroa APRN Primary Care Provider [phone] Reason for Visit * Reason Comments Medication Refill Encounter Details Date Type Department Care Team (Late st Contact Info) Description 03/06/2022 Refill [facility] [address] [place] [id number] Maryann Figueroa APRN [address] [place] [address] Medication Refill Social History Tobacco Use [...] Refills Last Filled Start Date End Date traZODone (DESYREL) 50 mg Oral TabletIndications: Insomnia, persistent Take 1 Tablet by mouth nightly. 30 Tablet 2 03/06/2022 4 omeprazole (PRILOSEC) 20 mg Oral Capsule, Delayed Release(E.C.) TAKE 1 CAPSULE BY MOUTH DAILY 30 Capsule 2 03/06/2022 3 documented in this encounter Plan of Treatment Not on file documented as of this encounter Goals Goal Patient Goal Type Associated Problems Recent Progress Patient-Stated? Author Maintain a healthy diet, exercise regularly and maintain an ideal body weight General No Tyra Ferreira, KATE Stay Tobacco Free Lifestyle No Shakira Light CCMA documented as of this encounter Visit Diagnoses Diagnosis Insomnia, persistent Persistent disorder of initiating or maintaining sleep documented in this encounter Discontinued Medications Medication Sig Discontinue Reason Start Date End Da te omeprazole (PRILOSEC) 20 mg Oral Capsule, Delayed Release(E.C.) TAKE 1 CAPSULE BY MOUTH DAILY 10/09/2021 03/06/2022 traZODone (DESYREL) 50 mg Oral TabletIndications:Insomn ia, persistent Take 1 Tablet by mouth nightly. 11/14/2021 03/06/2022 documented as of this encounter Care Teams Wringer And Setter Relationship Specialty Start Date End Date Maryann Figueroa APRN [address] [place], [place] [address] PCP - General Nurse Practitioner-Family 05/21/17 documented as of this encounter
--- OUTSIDE RECORDS SUMMARY | 2024-05-13 22:28 | XMS_ITS | Encounter Summary ---
Author Organization [facility] [place] [address] Care Team Providers Care Wrapper Counter Name Role Phone Maryann Figueroa APRN Primary Care Provider [phone] Reason for Visit * Reason Comments Medication Refill Encounter Details Date Type Department Care Team (Late st Contact Info) Description 09/20/2023 Refill [facility] [address] [place] [phone] Maryann Figueroa APRN [address] [place], [place] [id number] Medication Refill Social History Tobacco Use Types [...] Refills Last Filled Start Date End Date loratadine (CLARITIN) 10 mg Oral TabletIndications: Acute middle ear effusion, left,Seasonal allergic rhinitis due to pollen Take 1 Tablet by mouth daily. 30 Tablet 2 09/20/2023 omeprazole (PRILOSEC) 20 mg Oral Capsule, Delayed Release(E.C.) Take 1 Capsule by mouth daily. 30 Capsule 09/20/2023 hydrOXYzine (VISTARIL) 25 mg Oral CapsuleIndications :Generalized anxiety disorder Take 1 Capsule by mouth 3 times daily as needed. 30 Capsule 09/20/2023 4 documented in this encounter Miscellaneous Notes * Telephone Encounter - Sharda Garzon CPhT - 09/20/2023 10:29 AM EDT Omeprazole Medication Refill Protocol failed due to appointment. executive producer Reason: Chart review does not show a coded diagnosis in protocol timeframe. [facility] Action: Approved 30-day supply of medication Routed to office staff for outreach to schedule appointment. Hydroxyzine Medication Refill Protocol not available for this medication. Routed to office staff. Loratadine Medication Refill Protocol not available for this medication. Routed to office staff. documented in this encounter Plan of Treatment Not on file documented as of this encounter Goals Goal Patient Goal Type Associated Problems Recent Progress Patient-Stated? Author Maintain a healthy diet, exercise regularly and maintain an ideal body weight General No Tyra Ferreira CCMA Stay Tobacco Free Lifestyle No Shakira Light CCMA documented as of this encounter Visit Diagnoses Diagnosis Acute middle ear effusion, left Seasonal allergic rhinitis due to pollen Generalized anxiety disorder documented in this encounter Discontinued Medications Medication Sig Discontinue Reason Start Date End Da te omeprazole (PRILOSEC) 20 mg Oral Capsule, Delayed Release(E.C.) Take 1 Capsule by mouth daily. 04/29/2023 09/20/2023 loratadine (CLARITIN) 10 mg Oral TabletIndications:Acute middle ear effusion, left,Seasonal allergic rhinitis due to pollen Take 1 Tablet by mouth daily. 04/29/2023 09/20/2023 hydrOXYzine (VISTARIL) 25 mg Oral CapsuleIndications:Gener alized anxiety disorder Take 1 Capsule by mouth 3 times daily as needed. 08/30/2023 09/20/2023 documented as of this encounter Care Teams Wrapper Counter Relationship Specialty Start Date End Date Maryann Figueroa APRN [address] [place] [address] PCP - General Nurse Practitioner-Family 05/21/17 documented as of this encounter
--- OUTSIDE RECORDS SUMMARY | 2024-05-13 22:28 | XMS_ITS | Encounter Summary ---
Author Organization [facility] [place] [address] Care Team Providers Care Latexer Name Role Phone Maryann Figueroa APRN Primary Care Provider [phone] Reason for Visit * Reason Comments Medication Refill Encounter Details Date Type Department Care Team (Late st Contact Info) Description 07/16/2022 Refill [facility] [address] [place] [address] Heaven [place] MD Medication Refill Social [...] Tablet by mouth nightly. 30 Tablet 2 07/17/2022 09/18/2022 documented in this encounter Plan of Treatment [...] media Take 1 Tablet by mouth nightly. 02/08/2022 07/17/2022 documented as of this encounter Care Teams Latexer Relationship Specialty Start Date End Date Maryann Figueroa APRN [address] [place], [place] [address] PCP - General Nurse Practitioner-Family 05/21/17 documented as of this encounter
--- OUTSIDE RECORDS SUMMARY | 2024-05-13 22:28 | XMS_ITS | Encounter Summary ---
Author Organization [facility] [address] Care Team Providers Care Wildlife Conservation Officer Name Role Phone Maryann Figueroa APRN Primary Care Provider [phone] Reason for Visit * Reason Onset Date Comments Medication Refill Central Patient Navigator Outreach 09/20/2023 med refills 1st Encounter Details Date Type Department Care Team (Late st Contact Info) Description 09/20/2023 Refill [facility] [address] [place] [address] Heaven [place] MD Medication Refill; Central Patient Navigator Outreach (med refills 1st ) Social History Tobacco Use Types Packs/Day Years [...] 1 Tablet by mouth nightly. 30 Tablet 09/20/2023 01/27/2024 documented in this encounter Miscellaneous Notes * Telephone Encounter - Allie Martines - 09/20/2023 12:15 PM EDT Patient Outreach: Medication refill appointment, 1st Chriss Primary Care Attempt Count: inbound Care Gaps Addressed refrigeration systems installer: Annual Wellness Visit, Appointment, and Flu Shot Outcome: Pharmacy team refilled a 30-day chriss supply of Montelukast. Routed to office:Please review for 90 day refill and call patient to advise. and pt declined stating her [employer] company states she has insurance but the pharmacy says she does not. * Telephone Encounter - Shakira Garzon - 09/20/2023 12:08 PM EDT Patient Outreach: Medication refill appointment, 1st Chriss Primary Care Attempt Count: 1st Care Gaps Addressed refrigeration systems installer: Appointment Outcome: Left message to return call at and [employer] Message Sent. * Telephone Encounter - Sharda Garzon CPhT - 09/20/2023 10:58 AM EDT Montelukast Medication Refill Protocol failed due to appointment. security guard Reason: Past follow-up date noted by protocol. Protocol required follow-up within 6 months. Patient most recently had appointment on 03/28/23 but associated diagnosis not assessed. security guard Action: Approved chriss 30-day supply of medication Routed to Patient Navigator team for outreach to schedule appointment. documented in this encounter Plan of Treatment [...] media Take 1 Tablet by mouth nightly. 04/29/2023 09/20/2023 documented as of this encounter Care Teams Wildlife Conservation Officer Relationship Specialty Start Date End Date Maryann Figueroa APRN [address] [place] [address] PCP - General Nurse Practitioner-Family 05/21/17 documented as of this encounter
--- OUTSIDE RECORDS SUMMARY | 2024-05-13 22:28 | XMS_ITS | Encounter Summary ---
Author Organization [place] [place] [address] Care Team Providers Care Managing Editor Name Role Phone Maryann Figueroa APRN Primary Care Provider [phone] Encounter Details Date Type Department Care Team (Late st Contact Info) Description 03/17/2024 1:20 PM EDT Telemedicine [facility] [address] [place] [address] Ketan Fonseca MD [address] [place] [address] Major depressive disorder, recurrent episode, mild (HCC) (Primary Dx) Social History Tobacco Use Types [...] Refills Last Filled Start Date End Date desvenlafaxine succinate (PRISTIQ) 50 mg Oral Tablet Sustained Release 24 hrIndications:Major depressive disorder, recurrent episode, mild (HCC) Take 1 Tablet by mouth daily. 30 Tablet 3 03/17/2024 documented in this encounter Progress Notes * Ketan Fonseca MD - 03/17/2024 1:20 PM EDT Patient presented today for routine care follow-up through a video visit. Patient has reviewed the terms and conditions of service as part of the registration for today's visit. A video visit does not replace a [id number] exam and further services may be necessary. We are conducting her video visit in a private space and this video visit is being conducted in accordance with state telehealth/video visit regulations. HPI: Weans self off paxil. Was making her too aggressive. Hydroxyzine - was taking that more regularly which helped with panic attacks - 4-5 x per week. But taking the hydroxyzine that frequently caused other side effects. Has been on effexor and paxil in the past. Review of Systems Constitutional: Negative. Negative for activity change, fatigue, fever and unexpected weight change. HENT: Negative. Negative for trouble swallowing. Eyes: Negative. Negative for photophobia, pain, discharge, itching and visual disturbance. Respiratory: Negative. Negative for cough, chest tightness, shortness of breath and wheezing. Cardiovascular: Negative. Negative for chest pain, palpitations and leg swelling. Gastrointestinal: Negative. Negative for abdominal distention, abdominal pain, blood in stool, constipation and diarrhea. Musculoskeletal: Negative. Negative for arthralgias, back pain, gait problem, joint swelling, myalgias, neck pain and neck stiffness. Skin: Negative. Negative for color change, pallor, rash and wound. Neurological: Negative. Negative for dizziness and headaches. Hematological: Negative for adenopathy. Psychiatric/Behavioral: Negative. Negative for confusion, sleep disturbance and suicidal ideas. Thepatient is not nervous/anxious. Exam: Constitutional: NAD, appropriately groomed. Appears comfortable. HENT: No gross deformities. Voice normal. No facial swelling noted. Eyes: Extra occular movements grossly intact. Visible portions of the eyes appear normal. No redness or discharge visible via casual video inspection. Cardiopulmonary: Does not appear in cardiopulmonary distress. Easy respirations w/o labored breathing. No audible gross wheezing or breathlessness. Neuro: Alert and oriented. Conversational. No gross deficits or facial droop appreciated on video evaluation. Psych: Appropriate mood and affect. Normal conversation and thought content. Assessment Diagnoses and all orders for this visit: Major depressive disorder, recurrent episode, mild (HCC) (Chronic) Overview: Side effects to effexor in past Improved, would like to wean off paxil Orders: - desvenlafaxine succinate (PRISTIQ) 50 mg Oral Tablet Sustained Release 24 hr; Take 1 Tablet by mouth daily. Dispense: 30 Tablet; Refill: 3 documented in this encounter Plan of Treatment Not on file documented as of this encounter Goals Goal Patient Goal Type Associated Problems Recent Progress Patient-Stated? Author Maintain a healthy diet, exercise regularly and maintain an ideal body weight General No Tyra Ferreira CCMA Stay Tobacco Free Lifestyle No Shakira Light CCMA documented as of this encounter Visit Diagnoses Diagnosis Major depressive disorder, recurrent episode, mild (HCC)- Primary Major depressive disorder, recurrent episode, mild documented in this encounter Discontinued Medications Medication Sig Discontinue Reason Start Date End Da te PARoxetine (PAXIL) 20 mg Oral TabletIndications:Major depressive disorder, recurrent episode, mild (HCC) Take 1 Tablet by mouth daily. Cancelled by 09/29/2021 03/17/2024 traZODone (DESYREL) 50 mg Oral TabletIndications:Insomn ia, persistent Take 1 Tablet by mouth nightly. Cancelled by 03/06/2022 03/17/2024 hydrOXYzine (VISTARIL) 25 mg Oral CapsuleIndications:Gener alized anxiety disorder Take 1 Capsule by mouth 3 times daily as needed. Cancelled by 09/20/2023 03/17/2024 PARoxetine (PAXIL) 20 mg Oral TabletIndications:Major depressive disorder, recurrent episode, mild (HCC) Take 1 Tablet by mouth daily. Cancelled by 09/29/2021 03/17/2024 traZODone (DESYREL) 50 mg Oral TabletIndications:Insomn ia, persistent Take 1 Tablet by mouth nightly. Cancelled by 03/06/2022 03/17/2024 documented as of this encounter Care Teams Managing Editor Relationship Specialty Start Date End Date Maryann Figueroa APRN [address] [place] [address] PCP - General Nurse Practitioner-Family 05/21/17 documented as of this encounter
--- OUTSIDE RECORDS SUMMARY | 2024-05-13 22:28 | XMS_ITS | Encounter Summary ---
Author Organization [place] [place] [address] Care Team Providers Care Earth Burner Name Role Phone Maryann Figueroa APRN Primary Care Provider [phone] Reason for Visit * Reason Comments Medication Refill Encounter Details Date Type Department Care Team (Late st Contact Info) Description 06/20/2022 Refill [facility] [address] [place] [phone] Maryann Figueroa APRN [address] [place], [place] [id number] Medication Refill Social History Tobacco Use Types [...] Refills Last Filled Start Date End Date hydrOXYzine (VISTARIL) 25 mg Oral CapsuleIndications :Generalized anxiety disorder Take 1 Capsule by mouth 3 times daily as needed. 30 Capsule 06/20/2022 documented in this encounter Plan of Treatment Not on file documented as of this encounter Goals Goal Patient Goal Type Associated Problems Recent Progress Patient-Stated? Author Maintain a healthy diet, exercise regularly and maintain an ideal body weight General No Tyra Ferreira CCMA Stay Tobacco Free Lifestyle No Shakira Light CCMA documented as of this encounter Visit Diagnoses Diagnosis Generalized anxiety disorder documented in this encounter Discontinued Medications Medication Sig Discontinue Reason Start Date End Da te hydrOXYzine (VISTARIL) 25 mg Oral CapsuleIndications:Gener alized anxiety disorder Take 1 Capsule by mouth 3 times daily as needed. 05/01/2022 06/20/2022 documented as of this encounter Care Teams Earth Burner Relationship Specialty Start Date End Date Maryann Figuero[place] [address] [place] [address] PCP - General Nurse Practitioner-Family 05/21/17 documented as of this encounter
--- OUTSIDE RECORDS SUMMARY | 2024-05-13 22:28 | XMS_ITS | Encounter Summary ---
Author Organization [place] [address] Care Team Providers Care Financial Services Intern Name Role Phone Maryann Figueroa APRN Primary Care Provider [phone] Reason for Visit * Reason Comments Medication Refill Encounter Details Date Type Department Care Team (Late st Contact Info) Description 02/08/2022 Refill [facility] [address] [place] [address] Heaven [place] MD Medication Refill Social [...] Tablet by mouth nightly. 30 Tablet 2 02/08/2022 07/17/2022 documented in this encounter Plan of Treatment [...] media Take 1 Tablet by mouth nightly. 12/06/2021 02/08/2022 documented as of this encounter Care Teams Financial Services Intern Relationship Specialty Start Date End Date Maryann Figueroa APRN [address] [place], [place] [address] PCP - General Nurse Practitioner-Family 05/21/17 documented as of this encounter
--- OUTSIDE RECORDS SUMMARY | 2024-05-13 22:28 | XMS_ITS | Encounter Summary ---
Author Organization [place] [address] Care Team Providers Care Franchise Development Manager Name Role Phone Maryann Figueroa APRN Primary Care Provider [phone] Reason for Referral * Ultrasound (Routine) - Pending Review Specialty Diagnoses / Procedures Referred By Contac t Referred To Contact Radiology Diagnoses Splenic lesion Procedures US SPLEEN Terrance Fonseca MD [address] [place] [address] Phone: tel: fax: Referral ID Status Reason Start Date Expiration Date V isits Requested Visits Authorized [id number] Pending Review 04/13/2024 04/13/2025 1 1 Reason for Visit * Reason Comments Follow-up Lesion on spleen Encounter Details Date Type Department Care Team (Late st Contact Info) Description 04/13/2024 9:40 AM EDT Office Visit [facility] [place] [address] Terrance Fonseca MD [address] [place] [address] Splenic lesion (Primary Dx) Social History Tobacco Use Types Packs/Day Years Used Date Smoking Tobacco: Every Day Cigarettes Last attempted to quit: 2016 Smokeless Tobacco: Never Alcohol Use Standard Drinks/Week [...] oz) 04/13/2024 9:45 A M EDT Height - - Body Mass Index 22.35 01/11/2023 1:29 PM EDT documented in this encounter Progress Notes * Terrance Fonseca MD - 04/13/2024 9:40 AM EDT Assessment & Plan 1. Splenic lesion. The lesion on the spleen could potentially be an incidentaloma, which is often benign. The scan results from [facility] are pending. Once received, they will be reviewed and discussed. If further clarification is needed, additional imaging of the spleen may be recommended. She reports no trauma or pain in the spleen area. Addendum: see below 2. Urinary Tract Infection (UTI). She was prescribed antibiotics for a suspected UTI on March 23, which resolved her symptoms of hematuria. No further symptoms are reported at this time. Assessment & Plan Splenic lesion CT scan reviewed from [facility] 2.5 cm lesion in spleen most consistent with hemangioma. Recommended ultrasound to confirm. Orders: US SPLEEN; Future No follow-ups on file. Subjective Wilber Kumar is a 18 y.o. female Chief Complaint Patient presents with Follow-up Lesion on spleen History of Present Illness The patient is a 18-year-old female who presents for evaluation of a lesion on her spleen. She sought medical attention at [facility] on 03/23/2024 due to symptoms suggestiveof a urinary tract infection (UTI), including hematuria (blood in urine) and fever. During this visit, a lesion was discovered on her spleen. She was prescribed antibiotics for the UTI, which successfully resolved the hematuria. Currently, she reports feeling well and denies any history of trauma to the spleen area. Review of Systems Constitutional: Negative. Negative for [...] and suicidal ideas. Thepatient is not nervous/anxious. Objective Blood pressure 112/76, pulse 98, temperature 97.8 ??F (36.6 ??C), temperature source Temporal, resp. rate 20, weight 136 lb 6.4 oz (61.9 kg), SpO2 99%. Body mass index is 22.35 kg/m??. Physical Exam Physical Exam Vitals reviewed. Constitutional: General: She is not in acute distress. Appearance: She is well-developed. She is not diaphoretic. HENT: Head: Normocephalic and atraumatic. Right Ear: External ear normal. Left Ear: External ear normal. Mouth/Throat: Pharynx: No oropharyngeal exudate. Eyes: General: No scleral icterus. Right eye: No discharge. Left eye: No discharge. Conjunctiva/sclera: Conjunctivae normal. Pupils: Pupils are equal, round, and reactive to light. Neck: Thyroid: No thyromegaly. Cardiovascular: Rate and Rhythm: Normal rate and regular rhythm. Heart sounds: Normal heart sounds. No murmur heard. No gallop. Pulmonary: Effort: Pulmonary effort is normal. No respiratory distress. Breath sounds: Normal breath sounds. No wheezing or rales. Chest: Chest wall: No tenderness. Abdominal: General: Bowel sounds are normal. Palpations: Abdomen is soft. There is no mass. Tenderness: There is no abdominal tenderness. There is no guarding or rebound. Musculoskeletal: General: No tenderness. Normal range of motion. Cervical back: Normal range of motion and neck supple. Lymphadenopathy: Cervical: No cervical adenopathy. Skin: General: Skin is warm and dry. Neurological: Mental Status: She is alert and oriented to person, place, and time. Results Imaging Lesion on spleen identified. The provider educated the patient (or legal environmental marketing representative) on the use of the ambient listening artificial intelligence tool, [employer]. They were informed that this AI tool processes the conversation to generate a clinical note with the expected benefit of improved accuracy while achieving an improved encounter experience for the patient and provider.?The provider explained that the medical information captured by the AI tool including, but not limited to, diagnoses and treatment plan would be protected in accordance with applicable privacy laws and that all diagnoses and treatment decisions would be made by the provider. The provider explained that the note generated will be reviewed bythe provider for accuracy to minimize potential errors.? The patient was given an opportunity to ask questions and opt out of proceeding with the use of the AI tool. After being informed of such information, the patient (or legal environmental marketing representative), and each individual in attendance with the patient, verbally consented to the use of the AI tool. documented in this encounter Miscellaneous Notes * Addendum Note - Trerance Fonseca MD - 04/13/2024 9:40 AM EDTAddended by: TERRANCE FONSECA on: 04/13/2024 10:26 AM Modules accepted: Orders documented in this encounter Plan of Treatment Scheduled Orders Name Type Priority Associated Diagnoses Orde r Schedule US SPLEEN Imaging Routine Splenic lesion 1 Occurrences starting 04/13/2024 until 04/13/2025 documented as of this encounter Goals Goal Patient Goal Type Associated Problems Recent Progress Patient-Stated? Author Maintain a healthy diet, exercise regularly and maintain an ideal body weight General No Tyra Ferreira CCMA Stay Tobacco Free Lifestyle No Shakira Light CCMA documented as of this encounter Visit Diagnoses Diagnosis Splenic lesion- Primary Disease of spleen, unspecified documented in this encounter Care Teams Franchise Development Manager Relationship Specialty Start Date End Date Maryann Figueroa APRN [address] [place], [place] [address] PCP - General Nurse Practitioner-Family 05/21/17 documented as of this encounter
--- OUTSIDE RECORDS SUMMARY | 2024-05-13 22:28 | XMS_ITS | Encounter Summary ---
Author Organization [place] [address] Care Team Providers Care Technical Sales Director Name Role Phone Maryann Figueroa APRN Primary Care Provider [phone] Reason for Visit * Reason Comments Otalgia Pt sts that she has been having left ear pain had been seen for it few weeks ago, not better Encounter Details Date Type Department Care Team (Late st Contact Info) Description 08/29/2022 4:30 PM EST Office Visit [facility] [address] [address] Derrick Alexander MD [address] [facility] [place] [address] Acute otitis media with effusion of left ear (Primary Dx); Vitamin D deficiency; Screening cholesterol level; Diabetes mellitus screening Social History Tobacco Use Types Packs/Day Years [...] Sign Reading Time Taken Comments Blood Pressure 114/60 08/29/2022 4:25 PM EST Pulse 84 08/29/2022 4:25 PM EST Temperature 36.7 ??C (98.1 ??F) 08/29/2022 4:25 PM ES T Respiratory Rate 20 08/29/2022 4:25 PM EST Oxygen Saturation 98% 08/29/2022 4:25 PM EST Inhaled Oxygen Concentration - - Weight 58.1 kg (128 lb) 08/29/2022 4:25 PM EST Height - - Body Mass Index 20.98 08/14/2022 9:17 AM EST Body Mass Index Percentile 45.88% 08/29/2022 4:2 5 PM EST Growth Chart: CDC (Girls, 2- 20 Years) documented in this encounter Ordered Prescriptions Prescription Sig Dispense Quantity Refills Last Filled Start Date End Date predniSONE (DELTASONE) 20 mg Oral Tablet Take 1 Tablet by mouth daily for 7 days. 7 Tablet 08/29/2022 3 azithromycin (ZITHROMAX) 250 mg Oral Tablet Take 2 tablets (500 mg) on Day 1, followed by 1 tablet (250 mg) once daily on Days 2 through 5. 6 Tablet 08/29/2022 3 documented in this encounter Progress Notes * Derrick Alexander MD - 08/29/2022 4:30 PM EST Vitals: 08/29/22 1625 BP: 114/60 Pulse: 84 Resp: 20 Temp: 98.1 ??F (36.7 ??C) TempSrc: Oral SpO2: 98% Weight: 128 lb (58.1 kg) SUBJECTIVE: Chief Complaint Patient presents with ??? Otalgia Pt sts that she has been having left ear pain had been seen for it few weeks ago, not better HPI: . 4 day hx of cough, sneezing, sinus congestion, and left ear pain and fullness. No fever. Review of Systems Constitutional: Negative for chills and fever. HENT: Positive for congestion and ear pain. Negative for sinus pain. Respiratory: Positive for cough. Negative for chest tightness and shortness of breath. Cardiovascular: Negative for chest pain and palpitations. Gastrointestinal: Negative for abdominal pain, nausea and vomiting. Neurological: Positive for dizziness and headaches. OBJECTIVE: Physical Exam NAD PERRL EOMI Left TM injected with effusion Cobblestoning Bilateral wheezing RR no murmur ABD soft nontender non distended No C/C/E Non focal neuro exam Assessment Diagnoses and all orders for this visit: Acute otitis media with effusion of left ear Vitamin D deficiency Overview: On replacement. Orders: - VITAMIN D 25 HYDROXY; Future Screening cholesterol level - LIPID PANEL REFLEX; Future Diabetes mellitus screening - COMPREHENSIVE METABOLIC PANEL; Future Other orders - azithromycin (ZITHROMAX) 250 mg Oral Tablet; Take 2 tablets (500 mg) on Day 1, followed by 1 tablet (250 mg) once daily on Days 2 through 5. Dispense: 6 Tablet; Refill: 0 - predniSONE (DELTASONE) 20 mg Oral Tablet; Take 1 Tablet by mouth daily for 7 days. Dispense: 7 Tablet; Refill: 0 documented in this encounter Plan of Treatment Not on file documented as of this encounter Goals Goal Patient Goal Type Associated Problems Recent Progress Patient-Stated? Author Maintain a healthy diet, exercise regularly and maintain an ideal body weight General No Tyra Ferreira CCMA Stay Tobacco Free Lifestyle No Shakira Light CCMA documented as of this encounter Results * (ABNORMAL) COMPREHENSIVE METABOLIC PANEL (09/05/2022 8:42 AM EDT) Sodium 143 136 - 145 mmol/L 09/05/2022 4:21 PM EDT [facility] Potassium 3.4(L) 3.5 - 5.0 mmol/L 09/05/2022 4:21 PM EDT [facility] Chloride 104 98 - 107 mmol/L 09/05/2022 4:21 PM EDT [facility] Total CO2 28 22 - 29 mmol/L 09/05/2022 4:21 PM EDT [facility] Anion Gap 11 7 - 16 mmol/L 09/05/2022 4:21 PM EDT [facility] Calcium 9.9 8.6 - 10.4 mg/dL 09/05/2022 4:21 PM EDT [facility] Glucose Lvl 91 74 - 100 mg/dL 09/05/2022 4:21 PM EDT [facility] BUN 6 6 - 20 mg/dL 09/05/2022 4:21 PM EDT [facility] Creatinine 0.80 0.51 - 1.30 mg/dL 09/05/2022 4:21 PM EDT [facility] Albumin 5.0 3.5 - 5.2 gm/dL 09/05/2022 4:21 PM EDT [facility] Total Protein 7.4 6.4 - 8.3 gm/dL 09/05/2022 4:21 PM EDT [facility] Bili Total 0.1 0.1 - 1.3 mg/dL 09/05/2022 4:21 PM EDT [facility] ALT 11 <=41 U/L 09/05/2022 4:21 PM EDT [facility] AST 14 <=40 U/L 09/05/2022 4:21 PM EDT [facility] Alk Phos 89 36 - 123 U/L 09/05/2022 4:21 PM EDT [facility] eGFR (CKD-EPIcr 2020) 109 >=60 mL/min/1.7 3 m2 09/05/2022 4:21 PM EDT [facility] Comment:Estimated GFR was ca lculated using the CKD-EPIcr (2020) equation refit without race. The equation is recommended by the National Kidney Foundation - [place] [employer] of Nephrology Task Force. Blood VENOUS BLOOD / Unknown Venipuncture / Unknown 09/05/2022 8:42 AM EDT 09/05/2022 8:42 AM EDT Derrick Alexander MD CHEMISTRY ORDERABLES Final Result Performing Organization Address [facility] de Phone Number PREFERRED [employer] [address] , [place] [id number] [facility] [address] [place] [address] * VITAMIN D 25 HYDROXY (09/05/2022 8:42 AM EDT) Vit D 25 OH 75.2 30.0 - 150.0 ng/mL 09/05/2022 4:31 PM EDT [facility] Comment: Preferred: >= 30 ng/mL Insufficient: 21-29 ng/mL Deficient <= 20 ??ng/mL Possible Toxicity: >150 ng/mL Samples should not be taken from patients receiving therapy with high biotin doses (i.e. > 5 mg/day) until at least 8 hours following the last biotin administration. Blood VENOUS BLOOD / Unknown Venipuncture / Unknown 09/05/2022 8:42 AM EDT 09/05/2022 8:42 AM EDT Derrick Alexander MD CHEMISTRY ORDERABLES Final Result Performing Organization Address [facility] de Phone Number [employer] [facility] [address] [facility] , [place] [phone] * (ABNORMAL) LIPID PANEL REFLEX (09/05/2022 8:42 AM EDT) Cholesterol 152 <200 mg/dL 09/05/2022 4:21 PM EDT [facility] Comment: < 200 ?Desirable 200 - 239 ? Borderline High >= 240 ?High Triglyceride 173(H) <150 mg/dL 09/05/2022 4:21 PM EDT [facility] Comment: < 150 ? Normal 150 - 199 ?Borderline High 200 - 499 ?High ??>= 500 ? Very High HDL 46 >=40 mg/dL 09/05/2022 4:21 PM EDT [facility] Comment: ??> 60 ?Optimal 40 - 60 ?Acceptable ?? < 40 ?Low LDL Calculated 77 <100 mg/dL 09/05/2022 4:21 PM EDT [facility] Non-HDL-C Calculated 106 <=129 mg/dL 09/05/2022 4:21 PM EDT [facility] Comment: <130 ?Desirable 130-159 Above Desirable 160-189 Borderline High 190-219 High >= 220 ??Very High Fasting Specimen? No None 023 4:21 PM EDT [facility] Blood VENOUS BLOOD / Unknown Venipuncture / Unknown 09/05/2022 8:42 AM EDT 09/05/2022 8:42 AM EDT Derrick Alexander MD CHEMISTRY ORDERABLES Final Result Performing Organization Address City/State/[facility] Co de Phone Number [facility] [address] [facility] , [place] [address] [facility] [address] [place] [address] documented in this encounter Visit Diagnoses Diagnosis Acute otitis media with effusion of left ear- Primary Vitamin D deficiency Unspecified vitamin D deficiency Screening cholesterol level Screening for lipoid disorders Diabetes mellitus screening Screening for diabetes mellitus documented in this encounter Care Teams Technical Sales Director Relationship Specialty Start Date End Date Maryann Figueroa APRN [address] [place] [address] PCP - General Nurse Practitioner-Family 05/21/17 documented as of this encounter
--- OUTSIDE RECORDS SUMMARY | 2024-05-13 22:28 | XMS_ITS | Encounter Summary ---
Author Organization [place] [address] Care Team Providers Care History Instructor Name Role Phone Maryann Figueroa APRN Primary Care Provider [phone] Reason for Visit * Reason Comments Medication Refill Encounter Details Date Type Department Care Team (Late st Contact Info) Description 07/16/2022 Refill [facility] [address] [place] [id number] Maryann Figueroa APRN [address] [place] [address] Medication Refill Social History Tobacco Use [...] 3 times daily as needed. 30 Capsule 07/17/2022 3 omeprazole (PRILOSEC) 20 mg Oral Capsule, Delayed Release(E.C.) TAKE 1 CAPSULE BY MOUTH DAILY 30 Capsule 2 07/17/2022 3 documented in this encounter Plan of [...] Release(E.C.) TAKE 1 CAPSULE BY MOUTH DAILY 03/06/2022 07/17/2022 hydrOXYzine (VISTARIL) 25 mg Oral CapsuleIndications:Gener alized anxiety disorder Take 1 Capsule by mouth 3 times daily as needed. 06/20/2022 07/17/2022 documented as of this encounter Care Teams History Instructor Relationship Specialty Start Date End Date Maryann Fig[place] [address] [place] [address] PCP - General Nurse Practitioner-Family 05/21/17 documented as of this encounter
--- OUTSIDE RECORDS SUMMARY | 2024-05-13 22:28 | XMS_ITS | Encounter Summary ---
Author Organization [place] [address] Care Team Providers Care Auditing Clerk Name Role Phone Maryann Figueroa APRN Primary Care Provider [phone] Reason for Visit * Reason Comments Medication Refill Encounter Details Date Type Department Care Team (Late st Contact Info) Description 05/01/2022 Refill [facility] [address] [place] [id number] Maryann Figueroa APRN [address] [place] [address] Medication Refill Social History Tobacco Use [...] two times a week. 4 Capsule 3 05/03/2022 3 hydrOXYzine (VISTARIL) 25 mg Oral CapsuleIndications :Generalized anxiety disorder Take 1 Capsule by mouth 3 times daily as needed. 30 Capsule 05/01/2022 2 documented in this encounter Plan of Treatment [...] by mouth 3 times daily as needed. 04/18/2022 05/01/2022 ergocalciferol (DRISDOL) 1,250 mcg (50,000 unit) Oral Capsule Take 1 capsule by mouth two times a week. 04/09/2022 05/01/2022 documented as of this encounter Care Teams Auditing Clerk Relationship Specialty Start Date End Date Maryann Figueroa APRN [address] [place] [address] PCP - General Nurse Practitioner-Family 05/21/17 documented as of this encounter
--- OUTSIDE RECORDS SUMMARY | 2024-05-13 22:28 | XMS_ITS | Encounter Summary ---
Author Organization [place] [address] Care Team Providers Care Heating Engineer Name Role Phone Maryann Figueroa APRN Primary Care Provider [phone] Reason for Visit * Reason Onset Date Comments Medication Refill 04/28/2023 Encounter Details Date Type Department Care Team (Late st Contact Info) Description 04/28/2023 Refill [facility] [address] [place] [id number] Maryann Figueroa APRN [address] [place], [place] [id number] Medication Refill Social History Tobacco Use Types [...] two times a week. 4 Capsule 3 04/29/2023 4 omeprazole (PRILOSEC) 20 mg Oral Capsule, Delayed Release(E.C.) Take 1 Capsule by mouth daily. 30 Capsule 2 04/29/2023 4 clindamycin-benzoy l peroxide (BENZACLIN) Top GelIndications:Acn e vulgaris Apply topically 2 times daily. 50 g 2 04/29/2023 4 chlorhexidine (HIBICLENS) 4 % Top LiquidIndications: Acne vulgaris Apply topically as needed for Wound Care. 473 mL 1 04/29/2023 4 loratadine (CLARITIN) 10 mg Oral TabletIndications: Acute middle ear effusion, left,Seasonal allergic rhinitis due to pollen Take 1 Tablet by mouth daily. 30 Tablet 2 04/29/2023 4 documented in this encounter Plan of Treatment [...] left Seasonal allergic rhinitis due to pollen Acne vulgaris Other acne documented in this encounter Discontinued Medications Medication Sig Discontinue Reason Start Date End [place] loratadine (CLARITIN) 10 mg Oral TabletIndications:Acute middle ear effusion, left,Seasonal allergic rhinitis due to pollen Take 1 Tablet by mouth daily. Reorder 04/06/2022 04/28/2023 chlorhexidine (HIBICLENS) 4 % Top LiquidIndications:Acne vulgaris Apply topically as needed for Wound Care. Reorder 04/18/2022 04/28/2023 clindamycin-benzoyl peroxide (BENZACLIN) Top GelIndications:Acne vulgaris Apply topically 2 times daily. Reorder 04/18/2022 04/28/2023 omeprazole (PRILOSEC) 20 mg Oral Capsule, Delayed Release(E.C.) TAKE 1 CAPSULE BY MOUTH DAILY Reorder 09/18/2022 04/28/2023 ergocalciferol (DRISDOL) 1,250 mcg (50,000 unit) Oral Capsule Take 1 capsule by mouth two times a week. Reorder 10/08/2022 04/28/2023 documented as of this encounter Care Teams Heating Engineer Relationship Specialty Start Date End Date Maryann Figueroa APRN [address] [place] [address] PCP - General Nurse Practitioner-Family 05/21/17 documented as of this encounter
--- OUTSIDE RECORDS SUMMARY | 2024-05-13 22:28 | XMS_ITS | Encounter Summary ---
Author Organization [facility] [address] Care Team Providers Care Client Solutions Manager Name Role Phone Maryann Figueroa APRN Primary Care Provider [phone] Encounter Details Date Type Department Care Team (Latest Contact Info) Description 03/17/2024 Travel Social History Tobacco Use Types Packs/Day [...] on filedocumented in this encounter Care Teams Client Solutions Manager Relationship Specialty Start Date End Date Maryann Figueroa APRN [address] [place], [place] [address] PCP - General Nurse Practitioner-Family 05/21/17 documented as of this encounter
--- OUTSIDE RECORDS SUMMARY | 2024-05-13 22:28 | XMS_ITS | Encounter Summary ---
Author Organization [place] [address] Care Team Providers Care Terminal Computer Operator Name Role Phone Maryann Figueroa APRN Primary Care Provider [phone] Reason for Visit * Reason Comments Cough Congestion Encounter Details Date Type Department Care Team (Late st Contact Info) Description 03/28/2023 4:40 PM EDT Telemedicine [facility] [address] [place] [address] Ketan Fonseca MD [address] [place] [address] Rhinosinusitis Social History Tobacco Use Types Packs/Day Years [...] Refills Last Filled Start Date End Date amoxicillin-clavul anate (AUGMENTIN) 875-125 mg Oral TabletIndications: Rhinosinusitis Take 1 Tablet by mouth 2 times daily for 10 days. 20 Tablet 03/28/2023 04/07/2023 documented in this encounter Progress Notes * Ketan Fonseca MD - 03/28/2023 4:40 PM EDT Patient presented today for routine care follow-up through a video visit. Patient has reviewed the terms and conditions of service as part of the registration for today's visit. A video visit does not replace a [id number] exam and further services may be necessary. We are conducting her video visit in a private space and this video visit is being conducted in accordance with state telehealth/video visit regulations. HPI: Cough, congestion, sinus pressure and drainage. Had augmentin at home - started it and it's helping, but used last dose. Review of Systems HENT: Positive for congestion. Respiratory: Positive for cough. Exam: Constitutional: NAD, appropriately groomed. Appears comfortable. [...] Diagnoses and all orders for this visit: Rhinosinusitis - amoxicillin-clavulanate (AUGMENTIN) 875-125 mg Oral Tablet; Take 1 Tablet by mouth 2 times daily for 10 days. Dispense: 20 Tablet; Refill: 0 documented in this encounter Plan of Treatment Not on file documented as of this encounter Goals Goal Patient Goal Type Associated Problems Recent Progress Patient-Stated? Author Maintain a healthy diet, exercise regularly and maintain an ideal body weight General No Tyra Ferreira CCMA Stay Tobacco Free Lifestyle No Shakira Light CCMA documented as of this encounter Visit Diagnoses Diagnosis Rhinosinusitis Unspecified sinusitis (chronic) documented in this encounter Discontinued Medications Medication Sig Discontinue Reason Start Date End Da te amoxicillin-clavulanate (AUGMENTIN) 875-125 mg Oral TabletIndications:Rhinos inusitis Take 1 Tablet by mouth 2 times daily for 10 days. Reorder 01/11/2023 03/28/2023 documented as of this encounter Care Teams Terminal Computer Operator Relationship Specialty Start Date End Date Maryann Figueroa APRN [address] [place], [place] [address] PCP - General Nurse Practitioner-Family 05/21/17 documented as of this encounter
--- OUTSIDE RECORDS SUMMARY | 2024-05-13 22:28 | XMS_ITS | Encounter Summary ---
Author Organization [place] [address] Care Team Providers Care Director Blood Bank Name Role Phone Maryann Figueroa APRN Primary Care Provider [phone] Reason for Visit * Reason Comments Medication Refill Encounter Details Date Type Department Care Team (Late st Contact Info) Description 09/18/2022 Refill [facility] [address] [place] [phone] Maryann Figueroa APRN [address] [place], [place] [id number] Medication Refill Social History Tobacco Use Types [...] Refills Last Filled Start Date End Date omeprazole (PRILOSEC) 20 mg Oral Capsule, Delayed Release(E.C.) TAKE 1 CAPSULE BY MOUTH DAILY 30 Capsule 2 09/18/2022 3 hydrOXYzine (VISTARIL) 25 mg Oral CapsuleIndications :Generalized anxiety disorder Take 1 Capsule by mouth 3 times daily as needed. 30 Capsule 09/18/2022 3 documented in this encounter Plan of [...] by mouth 3 times daily as needed. 07/17/2022 09/18/2022 omeprazole (PRILOSEC) 20 mg Oral Capsule, Delayed Release(E.C.) TAKE 1 CAPSULE BY MOUTH DAILY 07/17/2022 09/18/2022 documented as of this encounter Care Teams Director Blood Bank Relationship Specialty Start Date End Date Maryann Fig[place] [address] [place] [address] PCP - General Nurse Practitioner-Family 05/21/17 documented as of this encounter
--- OUTSIDE RECORDS SUMMARY | 2024-05-13 22:28 | XMS_ITS | Encounter Summary ---
Author Organization [facility] [address] Care Team Providers Care Ornamental Plaster Sticker Name Role Phone Maryann Figueroa APRN Primary Care Provider [phone] Reason for Visit * Reason Onset Date Comments Medication Refill 03/26/2024 Encounter Details Date Type Department Care Team (Late st Contact Info) Description 03/26/2024 Refill [facility] Tahir BARILLAS [address] [place] [phone] Maryann Figueroa APRN [address] [place], [place] [id number] Medication Refill Social History Tobacco Use Types [...] two times a week. 4 Capsule 3 03/26/2024 clindamycin-benzoy l peroxide (BENZACLIN) Top GelIndications:Acn e vulgaris Apply topically 2 times daily. 50 g 2 03/26/2024 chlorhexidine (HIBICLENS) 4 % Top LiquidIndications: Acne vulgaris Apply topically as needed for Wound Care. 473 mL 1 03/26/2024 documented in this encounter Plan of Treatment Not on file documented as of this encounter Goals Goal Patient Goal Type Associated Problems Recent Progress Patient-Stated? Author Maintain a healthy diet, exercise regularly and maintain an ideal body weight General No Tyra Ferreira, KATE Stay Tobacco Free Lifestyle No Shakira Light CCMA documented as of this encounter Visit Diagnoses Diagnosis Acne vulgaris Other acne documented in this encounter Discontinued Medications Medication Sig Discontinue Reason Start Date End Da te chlorhexidine (HIBICLENS) 4 % Top LiquidIndications:Acne vulgaris Apply topically as needed for Wound Care. Reorder 04/29/2023 03/26/2024 clindamycin-benzoyl peroxide (BENZACLIN) Top GelIndications:Acne vulgaris Apply topically 2 times daily. Reorder 04/29/2023 03/26/2024 ergocalciferol (DRISDOL) 1,250 mcg (50,000 unit) Oral Capsule Take 1 Capsule by mouth two times a week. Reorder 04/29/2023 03/26/2024 documented as of this encounter Care Teams Ornamental Plaster Sticker Relationship Specialty Start Date End Date Maryann Figueroa APRN [address] [place] [address] PCP - General Nurse Practitioner-Family 05/21/17 documented as of this encounter
--- OUTSIDE RECORDS SUMMARY | 2024-05-13 22:28 | XMS_ITS | Clinical Summary ---
Author Organization [facility] Address [address] [place] [address] Phone Care Team Providers Care High School Librarian Name Role Phone Maryann Figueroa APRN Primary Care Provider Allergies No known active allergies Medications omeprazole (PRILOSEC) 20 mg Oral Capsule, Delayed Release(E.C.) Take 1 Capsule by mouth daily. 30 Capsule 4 Active loratadine (CLARITIN) 10 mg Oral TabletIndicatio ns:Acute middle ear effusion, left,Seasonal allergic rhinitis due to pollen Take 1 Tablet by mouth daily. 30 Tablet 2 4 Active montelukast (SINGULAIR) 10 mg Oral TabletIndicatio ns:Bilateral chronic serous otitis media Take 1 Tablet by mouth nightly. 30 Tablet 2 4 Active desvenlafaxine succinate (PRISTIQ) 50 mg Oral Tablet Sustained Release 24 hrIndications:M ajor depressive disorder, recurrent episode, mild (HCC) Take [...] 4 weeks to discuss further treatment. Given lynco forms to get completed before next appointment. Encounters Date Type Department Care Team Description 04/13/2024 9:40 AM EDT Office Visit [facility] [place] [address] [place] [address] Ketan Fonseca MD Splenic lesion (Primary Dx) 04/12/2024 Travel 03/26/2024 Refill [facility] [place] [address] [place] [address] Maryann Figueroa APRN Medication Refill 03/17/2024 1:20 PM EDT Telemedicine [place] [address] Ketan Fonseca MD Major depressive disorder, recurrent episode, mild (HCC) (Primary Dx) 03/17/2024 Travel from Last 3 Months Immunizations Name Administration Dates Next Due DTaP [...] 08/23/2020,02/20/2016 Meningococcal MCV4, Unspecif ied Formulation 02/20/2016 [facility] SARS-CoV-2 Bivalent B ooster Vaccine 12+ Years ([place]) 04/18/2022 Pfizer SARS-CoV-2 Vaccine Tr is-Sucrose 12+ Years ([place] Cap) 09/29/2021,08/29/2021 Pneumococcal Conjugate Vacci ne 13 Valent 02/14/2005,2004,2004 Tdap 02/20/2016 Varicella 02/24/2009,08/01/2005 Surgical History Surgery Date Site/Laterality Comments ADENOIDECTOMY TONSILLECTOMY TYMPANOSTOMY TUBE PLACEMENT Family History Medical History Relation Name Comments No Known Problems Brother High Blood Pressure Father Cancer Other skin High Blood Pressure Paternal Grandfather High Blood Pressure Paternal Grandmother No Known Problems Sister Relation Name Status Comments Brother Alive Father Alive Maternal Grandmother unknown Mother Alive unsure Other Paternal great grandfather Paternal Grandfather Alive Paternal Grandmother Alive Sister Alive Social History Tobacco Use Types Packs/Day Years [...] on file Sexual Orientation Not on file Obstetrics History Growth Chart Information Age Height Weight [id number] th Percentile BMI Percentile Head Circum Head Circum Percentile Date 18 years 61.9 kg (136 lb 6.4 oz) 2023 17 years 166.4 cm (5' 5.5 ) 54 kg (119 lb) 24.00%* 2022 17 years 58.1 kg (128 lb) 2022 17 years 166.4 cm (5' 5.5 ) 57.2 kg (126 lb) 41.59%* 2022 16 years 166.4 cm (5' 5.5 ) 59.4 kg (131 lb) 53.69%* 2021 16 years 56.2 kg (124 lb) 2021 16 years 166.4 cm (5' 5.5 ) 56.7 kg (125 lb) 42.14%* 2021 16 years 166.4 cm (5' 5.5 ) 56.9 kg (125 lb 6.4 oz) 43.47%* 2021 16 years 166.4 cm (5' 5.5 ) 56.2 kg (124 lb) 40.61%* 2021 16 years 166.4 cm (5' 5.5 ) 56.5 kg (124 lb 9.6 oz) 42.67%* 2021 16 years 170.2 cm (5' 7 ) 54.9 kg (121 lb) 22.53%* 2021 15 years 170.2 cm (5' 7 ) 57.6 kg (127 lb) 42.00%* 2020 14 years 168.9 cm (5' 6.5 ) 55.8 kg (123 lb) 39.96%* 2019 14 years 168.9 cm (5' 6.5 ) 57.2 kg (126 lb) 46.58%* 2019 14 years 168.9 cm (5' 6.5 ) 59.1 kg (130 lb 3.2 oz) 55.46%* 2019 14 years 167.6 cm (5' 6 ) 60.3 kg (133 lb) 64.59%* 2019 14 years 154.9 cm (5' 1 ) 63 kg (139 lb) 91.90%* 2019 14 years 154.9 cm (5' 1 ) 62.6 kg (138 lb) 91.56%* 2019 13 years 165.1 cm (5' 5 ) 61.7 kg (136 lb) 79.11%* 2018 13 years 165.1 cm (5' 5 ) 62.1 kg (137 lb) 80.69%* 2018 13 years 165.1 cm (5' 5 ) 62.6 kg (138 lb) 82.94%* 2018 12 years 165.1 cm (5' 5 ) 57.6 kg (127 lb) 73.55%* 2017 11 years 165.1 cm (5' 5 ) 54 kg (119 lb) 64.28%* 2017 11 years 165.1 cm (5' 5 ) 54 kg (119 lb) 65.03%* 2016 11 years 165.1 cm (5' 5 ) 53.5 kg (118 lb) 63.35%* 2016 11 years 49.6 kg (109 lb 4 oz) 2016 * [facility] (Girls, 2-20 Years) Last Filed Vital Signs Vital Sign Reading [...] 01/11/2023 1:29 PM EDT Plan of Treatment Health Maintenance Due Date Last Done Comments Pneumococcal Vaccine 0-64 (1 of 1 - PPSV23 or PCV20) 2010 02/14/2005, 02/14/2005, 2004, Additional history exists Annual Wellness Exam 09/29/2022 09/29/2021 COVID-19 Vaccine (4 - 2023-2 5 season) 2024 04/18/2022, 09/29/2021, 08/29/2021 Influenza Vaccine (#1) 2024 05/21/2017 DTaP/TDaP/Td (7 - Td or Tdap) 02/19/2026, 02/24/2009, 02/24/2009, Additional history exists Hepatitis B Vaccine Completed 02/11/2006, 03/22/2005, 2004, Additional history exists HPV Completed 11/21/2017, 05/21/2017 Goals Goal Patient Goal Type Associated Problems Recent Progress Patient-Stated? Author Maintain a healthy diet, exercise regularly and maintain an ideal body weight General No Tyra Ferreira CCMA Stay Tobacco Free Lifestyle No Shakira Light CCMA Insurance [address] [place] [address] [address] [place] [address] [address] [place] [id number] [place] [address] MDR Advance Directives For more information, please contact: [phone] Documents on File Type Date Recorded Patient Public Weigher Expl anation [employer] ORDER 05/21/2017 2:00 PM Care Teams High School Librarian Relationship Specialty Start Date End Date Maryann Figuero[place] [address] [place] [address] PCP - General Nurse Practitioner-Family 05/21/17
--- OUTSIDE RECORDS SUMMARY | 2024-05-13 22:28 | XMS_ITS | Encounter Summary ---
Author Organization [place] [address] Care Team Providers Care Video Operator Name Role Phone Maryann Figueroa APRN Primary Care Provider [phone] Reason for Visit * Reason Onset Date Comments Symptom Call 01/24/2023 Yeast infection Encounter Details Date Type Department Care Team (Late st Contact Info) Description 01/24/2023 Telephone [facility] [address] [place] [address] Maryann Figueroa APRN [address] [facility] [address] [place], [place] [id number] Symptom Call (Yeast infection /) Social History Tobacco Use Types Packs/Day Years [...] Refills Last Filled Start Date End Date fluconazole (DIFLUCAN) 150 mg Oral Tablet Take 1 Tablet by mouth once for 1 dose. 1 Tablet 01/24/2023 01/24/2023 documented in this encounter Miscellaneous Notes * Telephone Encounter - Tyra Ferreira CCMA - 01/24/2023 9:08 AM EDT Done * Telephone Encounter - Kimberley Dotson - 01/24/2023 9:04 AM EDT Symptoms Call Who is reporting the symptoms: Other grandmother What symptom(s) is the patient experiencing: yeast infection How long have symptoms been present: 1 week(s) ago Has the patient been seen for this: No If no, was an appointment/E-Visit offered/suggested? Pt was seen in office 01/11 and prescribed abx Grandmother stated her father is in the hospital and pt does not have a way to the doctors office for appt Has the patient tried anything to relieve the symptoms and did it help: monistat If pain, what level on scale 1-10 (10 being the greatest): na Desired Outcome: Rx, Pharmacy & [facility] Additional Notes: documented in this encounter Plan of Treatment [...] on filedocumented in this encounter Care Teams Video Operator Relationship Specialty Start Date End Date Maryann Figueroa APRN [address] [place], [place] [address] PCP - General Nurse Practitioner-Family 05/21/17 documented as of this encounter
--- OUTSIDE RECORDS SUMMARY | 2024-05-13 22:28 | XMS_ITS | Encounter Summary ---
Author Organization [place] [address] Care Team Providers Care Mold Breaker Name Role Phone Maryann Figueroa APRN Primary Care Provider [phone] Reason for Visit * Reason Onset Date Comments Medication Refill 08/30/2023 Encounter Details Date Type Department Care Team (Late st Contact Info) Description 08/30/2023 Refill [facility] [address] [place] [phone] Maryann Figueroa APRN [address] [place], [place] [id number] Medication Refill Social History Tobacco Use Types [...] 3 times daily as needed. 30 Capsule 08/30/2023 documented in this encounter Plan of Treatment [...] by mouth 3 times daily as needed. Reorder 03/20/2023 08/30/2023 documented as of this encounter Care Teams Mold Breaker Relationship Specialty Start Date End Date Maryann Figuero[place] [address] [place] [address] PCP - General Nurse Practitioner-Family 05/21/17 documented as of this encounter
--- OUTSIDE RECORDS SUMMARY | 2024-05-13 22:28 | XMS_ITS | Encounter Summary ---
Author Organization [place] [address] Care Team Providers Care Global Security Architect Name Role Phone Maryann Figueroa APRN Primary Care Provider [phone] Reason for Visit * Reason Comments Medication Refill Encounter Details Date Type Department Care Team (Late st Contact Info) Description 02/08/2022 Refill [facility] [address] [place] [phone] Maryann Figueroa APRN [address] [place] [address] Medication Refill Social History Tobacco Use [...] two times a week. 4 Capsule 3 02/08/2022 documented in this encounter Plan of Treatment [...] Reason Start Date End Da te ergocalciferol (VITAMIN D) 1,250 mcg (50,000 unit) Oral Capsule Take 1 Capsule by mouth two times a week. 10/02/2021 02/08/2022 documented as of this encounter Care Teams Global Security Architect Relationship Specialty Start Date End Date Maryann Figuero[place] [address] [place] [address] PCP - General Nurse Practitioner-Family 05/21/17 documented as of this encounter
--- OUTSIDE RECORDS SUMMARY | 2024-05-13 22:28 | XMS_ITS | Encounter Summary ---
Author Organization [place] [address] Care Team Providers Care Receiving Barn Custodian Name Role Phone Maryann Figueroa APRN Primary Care Provider [phone] Reason for Referral * Consultation (Routine) - Closed Specialty Diagnoses / Procedures Referred By Cesar morfin Referred To Contact Otolaryngology Diagnoses Eustachian tube dysfunction, left Maryann Figueroa APRN [address] [place] [address] Phone: tel: fax: [facility] [address] [address] Phone: tel: fax: Referral ID Status Reason Start Date Expiration Date Visits Re quested Visits Authorized [id number] Closed 01/11/2023 01/11/2024 99 99 Reason for Visit * Reason Comments Ear Fullness left Cough Congestion Encounter Details Date Type Department Care Team (Latest Contact Info) Description 01/11/2023 1:30 PM EDT Office Visit [facility] [place] [address] [place] [phone] Maryann Figueroa APRN [address] [place] [address] Rhinosinusitis (Primary Dx); Eustachian tube dysfunction, left Social History Tobacco Use Types Packs/Day Years [...] Sign Reading Time Taken Comments Blood Pressure 112/66 01/11/2023 1:29 PM EDT Pulse 91 01/11/2023 1:29 PM EDT Temperature 36.9 ??C (98.5 ??F) 01/11/2023 1:29 PM ED T Respiratory Rate 18 01/11/2023 1:29 PM EDT Oxygen Saturation 99% 01/11/2023 1:29 PM EDT Inhaled Oxygen Concentration - - Weight 54 kg (119 lb) 01/11/2023 1:29 PM EDT Height 166.4 cm (5' 5.5 ) 01/11/2023 1:29 PM EDT Body Mass Index 19.5 01/11/2023 1:29 PM EDT Body Mass Index Percentile 24.00% 01/11/2023 1:2 9 PM EDT Growth Chart: [facility] [place] (Girls, 2- 20 Years) documented in this encounter Ordered Prescriptions Prescription Sig Dispense Quantity Refills Last Filled Start Date End Date amoxicillin-clavul anate (AUGMENTIN) 875-125 mg Oral TabletIndications: Rhinosinusitis Take 1 Tablet by mouth 2 times daily for 10 days. 20 Tablet 01/11/2023 03/28/2023 documented in this encounter Progress Notes * Maryann Figueroa APRN - 01/11/2023 1:30 PM EDT Assessment Diagnoses and all orders for this visit: Rhinosinusitis - amoxicillin-clavulanate (AUGMENTIN) 875-125 mg Oral Tablet; Take 1 Tablet by mouth 2 times daily for 10 days. Dispense: 20 Tablet; Refill: 0 Eustachian tube dysfunction, left - AMB REFERRAL TO ENT As above. No distress. Vitals stable. Lungs clear. Medications as prescribed. Encouraged use of OTCmedications such as decongestants and antipyretics for symptom relief. Cool mist humidifier at night. Encouraged hydration, fever/pain control with followup for persistent or worsening sx. Progress Note: Vitals: 01/11/23 1329 BP: 112/66 Pulse: 91 Resp: 18 Temp: 98.5 ??F (36.9 ??C) TempSrc: Forehead SpO2: 99% Weight: 119 lb (54 kg) Height: 5' 5.5 (1.664 m) SUBJECTIVE: Chief Complaint Patient presents with Ear Fullness left Cough Congestion HPI: Patient presents office today with complaints of nasal congestion, drainage, congested cough, left ear pain and ear fullness. She has not had any fever chills or body aches. Does have known chronic allergic rhinitis and eustachian tube dysfunction. She is taking Singulair Zyrtec and Flonase. Review of Systems Constitutional: Negative for fever. HENT: Positive for congestion, ear pain, sinus pressure and sinus pain. Respiratory: Positive for cough. Negative for shortness of breath and wheezing. Cardiovascular: Negative for chest pain, palpitations and leg swelling. Gastrointestinal: Negative for abdominal pain. Allergic/Immunologic: Positive for environmental allergies. Negative for food allergies and immunocompromised state. Neurological: Positive for headaches. Hematological: Negative for adenopathy. Does not bruise/bleed easily. OBJECTIVE: Physical Exam Constitutional: Appearance: Normal appearance. She is well-developed. HENT: Head: Normocephalic and atraumatic. Right Ear: Tympanic membrane normal. Left Ear: A middle ear effusion is present. Tympanic membrane is erythematous. Nose: Mucosal edema and congestion present. Mouth/Throat: Mouth: Mucous membranes are moist. Eyes: Pupils: Pupils are equal, round, and reactive to light. Neck: Thyroid: No thyromegaly. Cardiovascular: Rate and Rhythm: Normal rate and regular rhythm. Heart sounds: Normal heart sounds. No murmur heard. No friction rub. No gallop. Pulmonary: Effort: Pulmonary effort is normal. Breath sounds: Normal breath sounds. No wheezing or rales. Musculoskeletal: Cervical back: Normal range of motion and neck supple. Lymphadenopathy: Cervical: No cervical adenopathy. Skin: General: Skin is warm and dry. Coloration: Skin is not pale. Findings: No erythema or rash. Neurological: Mental Status: She is alert and oriented to person, place, and time. Cranial Nerves: No cranial nerve deficit. Psychiatric: Behavior: Behavior normal. Thought Content: Thought content normal. Judgment: Judgment normal. documented in this encounter Plan of Treatment Scheduled Referrals Name Type Priority Associated Diagnoses Orde r Schedule AMB REFERRAL TO ENT Outpatient Referral Routine Eustachian tube dysfunction, left Ordered: 01/11/2023 documented as of this encounter Goals Goal Patient Goal Type Associated Problems Recent Progress Patient-Stated? Author Maintain a healthy diet, exercise regularly and maintain an ideal body weight General No Tyra Ferreira CCMA Stay Tobacco Free Lifestyle No Shakira Light CCMA documented as of this encounter Visit Diagnoses Diagnosis Rhinosinusitis- Primary Unspecified sinusitis (chronic) Eustachian tube dysfunction, left documented in this encounter Care Teams Receiving Barn Custodian Relationship Specialty Start Date End Date Maryann Figueroa APRN [address] [place], [place] [address] PCP - General Nurse Practitioner-Family 05/21/17 documented as of this encounter
--- OUTSIDE RECORDS SUMMARY | 2024-05-13 22:28 | XMS_ITS | Encounter Summary ---
Author Organization [place] [address] Care Team Providers Care Cigarette Inspector Name Role Phone Maryann Figueroa APRN Primary Care Provider [phone] Reason for Visit * Reason Comments Medication Refill Encounter Details Date Type Department Care Team (Late st Contact Info) Description 09/18/2022 Refill [facility] [address] [place] [address] [place] MD Medication Refill Social [...] Tablet by mouth nightly. 30 Tablet 2 09/18/2022 04/28/2023 documented in this encounter Plan of Treatment [...] media Take 1 Tablet by mouth nightly. 07/17/2022 09/18/2022 documented as of this encounter Care Teams Cigarette Inspector Relationship Specialty Start Date End Date Maryann Figueroa APRN [address] [place], [place] [address] PCP - General Nurse Practitioner-Family 05/21/17 documented as of this encounter
--- OUTSIDE RECORDS SUMMARY | 2024-05-13 22:28 | XMS_ITS | Encounter Summary ---
Author Organization [place] [address] Care Team Providers Care News Videographer Name Role Phone Maryann Figueroa APRN Primary Care Provider [phone] Reason for Visit * Reason Comments Labs Only Encounter Details Date Type Department Care Team (Late st Contact Info) Description 09/05/2022 8:40 AM EDT Clinical Support HOWARD BARILLAS [address] [place] [phone] Cindy Smart E [address] [place] [address] Screening cholesterol level; Vitamin D deficiency; Diabetes mellitus screening Social History Tobacco Use [...] on file documented as of this encounter Progress Notes * Cindy Smart - 09/05/2022 8:40 AM EDT Venipuncture in the right antecubital vein with 21 gauge needle, length 1 1/2 inch. documented in this encounter Plan of Treatment Not on file documented as of this encounter Goals Goal Patient Goal Type Associated Problems Recent Progress Patient-Stated? Author Maintain a healthy diet, exercise regularly and maintain an ideal body weight General No Tyra Ferreira CCMA Stay Tobacco Free Lifestyle No Shakira Light CCMA documented as of this encounter Procedures Procedure Name Priority Date/Time Associated Diagnosis Comments LIPID PANEL REFLEX Routine 09/05/2022 8: 42 AM EDT Screening cholesterol level VITAMIN D 25 HYDROXY Routine 09/05/2022 8:42 AM EDT Vitamin D deficiency COMPREHENSIVE METABOLIC PANEL Routine 09/05/2022 8:42 AM EDT Diabetes mellitus screening documented in this encounter Results * (ABNORMAL) COMPREHENSIVE METABOLIC PANEL (09/05/2022 8:42 AM EDT) Sodium 143 136 - 145 mmol/L 09/05/2022 4:21 PM EDT [facility] Potassium 3.4(L) 3.5 - 5.0 mmol/L 09/05/2022 4:21 PM EDT [facility] Chloride 104 98 - 107 mmol/L 09/05/2022 4:21 PM EDT [facility] Total CO2 28 22 - 29 mmol/L 09/05/2022 4:21 PM EDT [facility] Anion Gap 11 7 - 16 mmol/L 09/05/2022 4:21 PM EDT [facility] Calcium 9.9 8.6 - 10.4 mg/dL 09/05/2022 4:21 PM EDT [facility] Glucose Lvl 91 74 - 100 mg/dL 09/05/2022 4:21 PM EDT [facility] BUN 6 6 - 20 mg/dL 09/05/2022 4:21 PM EDT [facility] Creatinine 0.80 0.51 - 1.30 mg/dL 09/05/2022 4:21 PM EDT [facility] Albumin 5.0 3.5 - 5.2 gm/dL 09/05/2022 4:21 PM EDT [facility] Total Protein 7.4 6.4 - 8.3 gm/dL 09/05/2022 4:21 PM EDT [facility] Bili Total 0.1 0.1 - 1.3 mg/dL 09/05/2022 4:21 PM EDT [facility] ALT 11 <=41 U/L 09/05/2022 4:21 PM EDT [facility] AST 14 <=40 U/L 09/05/2022 4:21 PM EDT [facility] Alk Phos 89 36 - 123 U/L 09/05/2022 4:21 PM EDT [facility] eGFR (CKD-EPIcr 2020) 109 >=60 mL/min/1.7 3 m2 09/05/2022 4:21 PM EDT [facility] Comment:Estimated GFR was ca lculated using the CKD-EPIcr (2020) equation refit without race. The equation is recommended by the National Kidney Foundation - [place] Society of Nephrology Task Force. Blood VENOUS BLOOD / Unknown Venipuncture / Unknown 09/05/2022 8:42 AM EDT 09/05/2022 8:42 AM EDT Derrick Alexander MD CHEMISTRY ORDERABLES Final Result Performing Organization Address City/[facility] Co de Phone Number [facility] [address] , [place] [address] [facility] [address] [place] [phone] * VITAMIN D 25 HYDROXY (09/05/2022 8:42 AM EDT) Pathologist [facility] Vit D 25 OH 75.2 30.0 - 150.0 ng/mL 09/05/2022 4:31 PM EDT [employer] [facility] Comment: Preferred: >= 30 ng/mL Insufficient: 21-29 [...] CHEMISTRY ORDERABLES Final Result Performing Organization Address [facility] de Phone Number [facility] [address] , [place] [address] * (ABNORMAL) LIPID PANEL REFLEX (09/05/2022 8:42 AM EDT) [facility] Cholesterol 152 <200 mg/dL 09/05/2022 4:21 PM EDT [employer] Comment: < 200 ?Desirable 200 - 239 ? Borderline High >= 240 ?High Triglyceride 173(H) <150 mg/dL 09/05/2022 4:21 PM EDT [employer] Comment: < 150 ? Normal 150 - 199 ?Borderline High 200 - 499 ?High ??>= 500 ? Very High HDL 46 >=40 mg/dL 09/05/2022 4:21 PM EDT [employer] Comment: ??> 60 ?Optimal 40 - 60 ?Acceptable ?? < 40 ?Low LDL Calculated 77 <100 mg/dL 09/05/2022 4:21 PM EDT [facility] [employer] Non-HDL-C Calculated 106 <=129 mg/dL 09/05/2022 4:21 PM EDT [facility] Comment: <130 ?Desirable 130-159 Above Desirable 160-189 Borderline High 190-219 High >= 220 ??Very High Fasting Specimen? No None 023 4:21 PM EDT [facility] Blood VENOUS BLOOD / Unknown Venipuncture / Unknown 09/05/2022 8:42 AM EDT 09/05/2022 8:42 AM EDT Derrick Alexander MD CHEMISTRY ORDERABLES Final Result [facility] [address] , [place] [address] [facility] [address] [phone] documented in this encounter Visit Diagnoses Diagnosis Screening cholesterol level Screening for lipoid disorders Vitamin D deficiency Unspecified vitamin D deficiency Diabetes mellitus screening Screening for diabetes mellitus documented in this encounter Care Teams News Videographer Relationship Specialty Start Date End Date Maryann Figueroa APRN [address] [place] [address] PCP - General Nurse Practitioner-Family 05/21/17 documented as of this encounter
--- OUTSIDE RECORDS SUMMARY | 2024-05-13 22:28 | XMS_ITS | Encounter Summary ---
Author Organization [place] [address] Care Team Providers Care Gift Basket Packer Name Role Phone Maryann Figueroa APRN Primary Care Provider [phone] Reason for Visit * Reason Comments Medication Refill Encounter Details Date Type Department Care Team (Late st Contact Info) Description 04/05/2022 Refill [facility] [address] [place] [phone] Maryann Figueroa APRN [address] [...] two times a week. 4 Capsule 3 04/09/2022 2 loratadine (CLARITIN) 10 mg Oral TabletIndications: Acute middle ear effusion, left,Seasonal allergic rhinitis due to pollen Take 1 Tablet by mouth daily. 30 Tablet 2 04/06/2022 3 documented in this encounter Plan of [...] left Seasonal allergic rhinitis due to pollen documented in this encounter Discontinued Medications Medication Sig Discontinue Reason Start Date End Da te loratadine (CLARITIN) 10 mg Oral TabletIndications:Acute middle ear effusion, left,Seasonal allergic rhinitis due to pollen Take 1 Tablet by mouth daily. 01/17/2022 04/06/2022 ergocalciferol (DRISDOL) 1,250 mcg (50,000 unit) Oral Capsule Take 1 capsule by mouth two times a week. 02/08/2022 04/06/2022 documented as of this encounter Care Teams Gift Basket Packer Relationship Specialty Start Date End Date Maryann Figueroa APRN [address] [place], [place] [address] PCP - General Nurse Practitioner-Family 05/21/17 documented as of this encounter
--- OUTSIDE RECORDS SUMMARY | 2024-05-13 22:28 | XMS_ITS | Encounter Summary ---
Author Organization [place] [address] Care Team Providers Care It Consultant Name Role Phone Maryann Figueroa APRN Primary Care Provider [phone] Reason for Visit * Reason Comments Medication Refill Encounter Details Date Type Department Care Team (Late st Contact Info) Description 10/08/2022 Refill [facility] [address] [place] [phone] Maryann Figueroa APRN [address] [place], [place] [id number] Medication Refill Social History Tobacco Use Types [...] two times a week. 4 Capsule 3 10/08/2022 3 hydrOXYzine (VISTARIL) 25 mg Oral CapsuleIndications :Generalized anxiety disorder Take 1 Capsule by mouth 3 times daily as needed. 30 Capsule 10/08/2022 3 documented in this encounter Plan of [...] capsule by mouth two times a week. 08/20/2022 10/08/2022 hydrOXYzine (VISTARIL) 25 mg Oral CapsuleIndications:Gener alized anxiety disorder Take 1 Capsule by mouth 3 times daily as needed. 09/18/2022 10/08/2022 documented as of this encounter Care Teams It Consultant Relationship Specialty Start Date End Date Maryann Figueroa APRN [address] [place] [address] PCP - General Nurse Practitioner-Family 05/21/17 documented as of this encounter
--- OUTSIDE RECORDS SUMMARY | 2024-05-13 22:28 | XMS_ITS | Encounter Summary ---
Author Organization [place] [address] Care Team Providers Care Welding Instructor Name Role Phone Maryann Figueroa APRN Primary Care Provider [phone] Reason for Visit * Reason Onset Date Comments Results 09/06/2022 CMP / Vit D / Li pid Encounter Details Date Type Department Care Team (Late st Contact Info) Description 09/06/2022 Telephone [facility] [address] [place] [address] Maryann Figueroa APRN [address] [place] [address] Results (CMP / Vit D / Lipid) Social History Tobacco Use Types Packs/Day Years [...] on file documented as of this encounter Miscellaneous Notes * Telephone Encounter - Ailyn Otoole RMA - 09/06/2022 12:20 PM EDT Patient Calling for Results Patient called for results on Lab CMP / Vit D / Lipid Which Provider ordered the test? [place] Date of test: 09/05/22 Advised patient of: normal result. Patient Instructions/ Questions: Patient was given test results, voiced understanding. No need for call back, patient had no additional questions. Other: n/a Maryann Figueroa APRN 09/05/2022 ??5:23 PM EDT Labs ok. documented in this encounter Plan of Treatment [...] on filedocumented in this encounter Care Teams Welding Instructor Relationship Specialty Start Date End Date Maryann Figueroa APRN [address] [place] [address] PCP - General Nurse Practitioner-Family 05/21/17 documented as of this encounter
--- NOTE | 2024-05-13 22:29 | XR_ITS ---
PROCEDURE INFORMATION: Exam: XR Left Hand Exam date and time: 05/13/2024 10:29 PM Age: 18 years old Clinical indication: Injury or trauma; Other: Punched wall; Other: Pain; Additional info: Pain, injury TECHNIQUE: Imaging protocol: Radiologic exam of the left hand. Views: 3 or more views. COMPARISON: CR XR HAND LT MIN 3V 03/12/2022 11:42 AM FINDINGS: Bones/joints: Angulated distal 5th metacarpal fracture. Soft tissues: Normal. IMPRESSION: Angulated distal 5th metacarpal fracture.
--- NOTE | 2024-05-13 22:29 | HMH.EDGENADL ---
Discharge Plan Disposition Patient Disposition: Home, Self-Care Condition: Good Prescriptions Prescriptions: New oxycodone 5 mg tablet 5 mg PO Q8H PRN (Reason: pain) Qty: 12 0RF No Action norgestimate-ethinyl estradiol 1 EACH tablet 1 each PO DAILY omeprazole 20 MG capsule,delayed release(DR/EC) 20 mg PO DAILY paroxetine HCl 20 mg tablet 20 mg PO DAILY Patient Comments: TAKE 1 TABLET BY MOUTH DAILY. ergocalciferol (vitamin D2) 1,250 mcg (50,000 unit) capsule 50,000 unit PO WEEKLY Patient Comments: TAKE 1 CAPSULE BY MOUTH TWO TIMES A WEEK. montelukast 10 mg tablet 10 mg PO HS Patient Comments: TAKE 1 TABLET BY MOUTH NIGHTLY. loratadine 10 mg tablet 10 mg PO DAILY Patient Comments: TAKE 1 TABLET BY MOUTH DAILY. ibuprofen 400 mg tablet 400 mg PO Q8H PRN (Reason: pain) Qty: 20 0RF cefadroxil 500 mg capsule 500 mg PO BID Qty: 10 0RF Referrals Follow up/Referrals: Ketan Fonseca [Primary Care Provider] - See instructions Fidencio Underwood DO [Staff Physician] - See instructions Activity Restrictions/Add. Instructions Additional Instructions/Restrictions: You were evaluated in the emergency department today and diagnosed with a fracture of your hand. Please picking supervisor your prescription for pain medication and take as needed for severe pain. Do not drive or operate heavy machinery while taking narcotic pain medication. You may also take Tylenol and ibuprofen every 4-6 hours at home as needed for pain. Only take the oxycodone if your pain is not controlled by the Tylenol/ibuprofen. Follow-up closely outpatient with orthopedics. We are providing you with information for Dr. Underwood. Please call his office to schedule an appointment. Keep your splint on, clean, and dry. Return to the emergency department for new or worsening symptoms. Clinical Impressions Clinical Impression: Fracture of fifth metacarpal bone of left hand Qualifiers: Encounter type: initial encounter Fracture type: closed Stand Alone Forms Stand Alone Forms: Work/School Release Instructions Patient Instructions: DI for Boxer's Fracture Print Language Print Language: Nicarag[place] Discharge ED Provider: Claire Cevallos General Adult HPI <Claire Cevallos DO - Last Filed: 05/13/24 23:06> General Chief complaint: Extremity Injury, Upper Stated complaint: [id number]/20@[id number] LT hand inj Time Seen by Provider: 05/13/24 22:25 History of Present Illness HPI narrative: This patient is a 18-year-old female who denies significant past medical history presenting to the emergency department for evaluation with concern for left hand injury. Patient reports that she was angry and punched a metal cabinet in the bathroom and felt immediate pain on the ulnar aspect of her left hand. She is right-hand dominant. No other injuries noted. No numbness, tingling, or other concerns. No medications taken prior to arrival for pain. She denies any concern she could be . Related Data Home Medications ?Medication ?Instructions ?Recorded ?Confirmed norgestimate 0.25 mg-ethinyl 1 each PO DAILY control 02/15/20 07/03/22 estradiol 35 mcg tablet omeprazole 20 mg capsule,delayed 20 mg PO DAILY GERD 02/15/20 07/03/22 release ergocalciferol (vitamin D2) 1,250 50,000 unit PO WEEKLY Supplement 03/12/22 07/03/22 mcg (50,000 unit) capsule loratadine 10 mg tablet 10 mg PO DAILY Allergy symptoms 03/12/22 07/03/22 montelukast 10 mg tablet 10 mg PO HS Allergy symptoms 03/12/22 07/03/22 paroxetine HCl 20 mg tablet 20 mg PO DAILY Depression 03/12/22 07/03/22 Previous Rx's ?Medication ?Instructions ?Recorded ibuprofen 400 mg tablet 400 mg PO Q8H PRN pain #20 tabs 04/12/22 cefadroxil 500 mg capsule 500 mg PO BID #10 caps 03/23/24 oxycodone 5 mg tablet 5 mg PO Q8H PRN pain #12 tabs 05/13/24 Allergies Allergy/AdvReac Type Severity Reaction Status Date / Time No Known Allergies Allergy Verified 07/03/22 14:04 [facility] <Claire Cevallos DO - Last Filed: 05/13/24 23:06> [facility] Disclaimer: The information contained in this section may have been updated after the patient was seen, as this information can be updated by other users. Social History Smoking Status: Current every day smoker alcohol intake: never current occupational status: other Travel in the last 8 weeks: Inside the [place] Other Medical History Have you received the Pneumonia Vaccine: No <Claire Cevallos DO - Last Filed: 05/13/24 23:06> ROS Obtained: Yes All systems reviewed & no additional complaints except as documented Physical Exam <Claire Merida Cevallos, DO - Last Filed: 05/13/24 23:06> General General appearance: alert and in no apparent distress Head Head exam: atraumatic and normocephalic Eye Eye exam: Present normal appearance, PERRL and EOMI ENT ENT exam: Present normal exam, normal oropharynx, mucous membranes moist and normal external ear exam Neck Neck exam: Present normal inspection, full ROM and trachea midline; Absent tenderness Chest Chest inspection: Present normal inspection and symmetric chest wall rise; Absent tenderness Respiratory Respiratory exam: Present normal lung sounds bilaterally; Absent respiratory distress, wheezes, stridor or accessory muscle use Cardiovascular Cardiovascular exam: Present regular rate and normal rhythm Abdominal Exam Abdominal exam: Present soft; Absent distention, tenderness or guarding Extremities Exam Extremities exam: Present full ROM, tenderness, normal capillary refill and joint swelling Expanded Upper Extremity Exam Left: Hand L/R back image: 1. Significant bruising and tenderness to palpation with no open wounds. All compartments soft. Neurovascularly intact distally Back Exam Back exam: Present normal inspection and full ROM; Absent tenderness Neurological Exam Neurological exam: Present alert, oriented X3, CN II-XII intact and normal gait; Absent motor sensory deficit Psychiatric Psychiatric exam: Present normal affect and normal mood Skin Skin exam: Present warm and dry Medical Decision Making <Claire Cevallos DO - Last Filed: 05/13/24 23:06> Medical Records Medical records reviewed: Yes I reviewed the patient's medical records. Screening: Per USPSTF and CDC recommendations, given the prevalence of disease in our region, it is our hospital?s policy to screen for HIV and viral Hepatitis for all patients aged 18 and over and those with ongoing risk factors. Abel Inquiry Pt receiving controlled substance: Yes Abel was queried for this patient: Yes Risks and benefits of using a controlled substance: were discussed with pt by me Vital Signs: 05/13/24 22:22 05/13/24 22:30 05/13/24 23:00 Temperature 97.8 F Temperature Source Oral Pulse Rate 84 78 Pulse Rate [Left Radial] 88 Respiratory Rate 18 Blood Pressure 127/82 138/78 Blood Pressure [Right Arm] 160/99 H Blood Pressure Mean [Right Arm] 119 Blood Pressure Source [Right Arm] Automatic Cuff Blood Pressure Position [Right Arm] Sitting 02 Sat by Pulse Oximetry 98 97 98 Oxygen Delivery Method Room Air Lab Data Lab results reviewed: Yes I reviewed the patient's lab results. Orders (Tests/Meds): ED MEDICATIONS Discontinued Medications Generic Name Dose Route Start Last Admin Trade Name Herber PRN Reason Stop Dose Admin Acetaminophen 1,000 mg 05/13/24 22:29 05/13/24 22:45 Acetaminophen 500mg Tab PO 05/13/24 22:30 1,000 mg ONCE ONE Administration Ibuprofen 800 mg 05/13/24 22:29 05/13/24 22:45 Ibuprofen 400 Mg Tablet PO 05/13/24 22:30 800 mg ONCE ONE Administration Lidocaine HCl 10 ml 05/13/24 23:02 05/13/24 23:04 Lidocaine 1% 10ml Mdv SUBCUT 05/13/24 23:03 10 ml ONCE ONE Administration Oxycodone HCl 5 mg 05/13/24 22:59 05/13/24 23:03 Oxycodone 5mg Immediate Release Tablet PO 05/13/24 23:00 5 mg ONCE ONE Administration ORDERS Category Date Time Status Hand XR left 2 views [XR hand LT 2V] Stat Exams 05/13/24 23:22 Taken Hand XR left minimum 3 views [XR hand LT min 3V] Stat Exams 05/13/24 22:29 Completed Medical Decision Narrative: In summary, this patient is a 18-year-old female presenting to the Emergency Department for evaluation of left hand injury. Differential diagnoses considered include but are not limited to fracture, contusion, strain/pain, neurovascular injury. Ruling out the most morbid conditions drove assessment. On exam, the patient has significant bruising and tenderness to palpation of the ulnar aspect of the left hand at the fifth MCP. No open wounds. She is neurovascularly intact. Workup included trays of the left hand. She was given oral Tylenol and ibuprofen for pain. I independently interpreted x-ray prior to the radiologist read and noted fracture of the fifth metacarpal consistent with boxer's fracture. Please see their read for final interpretation. Patient care signed out to the oncoming provider, Dr. Dial, pending splinting and likely discharge home. <Rosalba Dial MD - Last Filed: 05/13/24 23:32> Vital Signs: 05/13/24 22:22 05/13/24 22:30 05/13/24 23:00 Temperature 97.8 F Temperature Source Oral Pulse Rate 84 78 Pulse Rate [Left Radial] 88 Respiratory Rate 18 Blood Pressure 127/82 138/78 Blood Pressure [Right Arm] 160/99 H Blood Pressure Mean [Right Arm] 119 Blood Pressure Source [Right Arm] Automatic Cuff Blood Pressure Position [Right Arm] Sitting 02 Sat by Pulse Oximetry 98 97 98 Oxygen Delivery Method Room Air Orders (Tests/Meds): ED MEDICATIONS Discontinued Medications Generic Name Dose Route Start Last Admin Trade Name Herber PRN Reason Stop Dose Admin Acetaminophen 1,000 mg 05/13/24 22:29 05/13/24 22:45 Acetaminophen 500mg Tab PO 05/13/24 22:30 1,000 mg ONCE ONE Administration Ibuprofen 800 mg 05/13/24 22:29 05/13/24 22:45 Ibuprofen 400 Mg Tablet PO 05/13/24 22:30 800 mg ONCE ONE Administration Lidocaine HCl 10 ml 05/13/24 23:02 05/13/24 23:04 Lidocaine 1% 10ml Mdv SUBCUT 05/13/24 23:03 10 ml ONCE ONE Administration Oxycodone HCl 5 mg 05/13/24 22:59 05/13/24 23:03 Oxycodone 5mg Immediate Release Tablet PO 05/13/24 23:00 5 mg ONCE ONE Administration ORDERS Category Date Time Status Hand XR left 2 views [XR hand LT 2V] Stat Exams 05/13/24 23:22 Taken Hand XR left minimum 3 views [XR hand LT min 3V] Stat Exams 05/13/24 22:29 Completed Medical Decision Narrative: In summary, this patient is a 18-year-old female presenting to the Emergency Department for evaluation of left hand injury. Differential diagnoses considered include but are not limited to fracture, contusion, strain/pain, neurovascular injury. Ruling out the most morbid conditions drove assessment. On exam, the patient has significant bruising and tenderness to palpation of the ulnar aspect of the left hand at the fifth MCP. No open wounds. She is neurovascularly intact. Workup included trays of the left hand. She was given oral Tylenol and ibuprofen for pain. I independently interpreted x-ray prior to the radiologist read and noted fracture of the fifth metacarpal consistent with boxer's fracture. Please see their read for final interpretation. Patient care signed out to the oncoming provider, Dr. Dial, pending splinting and likely discharge home. Dial: Upon my assumption of care patient is stable, resting comfortably, neurovascularly intact with swelling of the left hand as described in physical exam. X-ray personally interpreted of the left hand is concerning for boxer's fracture. Patient had received pain medication from the initial provider, I splinted the hand after performing a hematoma block, see procedure note for details. Post splinting patient was still neurovascularly intact, post splint x-rays were performed and personally interpreted demonstrating persistent but slightly improved angulated fracture of fifth metacarpal on the left hand on my personal interpretation, see radiology read for final interpretation. Patient is appropriate for discharge at this time. Oxycodone was prescribed for outpatient management of severe pain if needed. She was referred to Dr. Underwood for outpatient follow-up with orthopedics. Patient was given instructions on symptomatic management, follow up instructions, and return precautions for the emergency department. Patient indicated understanding and was discharged in stable condition. Procedures <Rosalba Dial MD - Last Filed: 05/13/24 23:32> Risk/Benefits of Procedure(s) Were Explained: Yes Orthopedic Fracture Reduction Fracture #1: Time Out Performed: Yes Side: left Fracture Reduction Location: metacarpal Analgesia: hematoma block Technique: direct manipulation Post Reduction X-rays Demonstrate: acceptable reduction Post-reduction neuro exam: intact and no change Post-reduction vascular exam: intact and no change Splint Applied: Yes Patient Tolerated Procedure: well and no complications Additional Comments: 8mL 1% lidocaine without epinephrine used for hematoma block Orthopedic Splinting/Casting Injury #1: Side: left Upper Extremity Injury Location: hand Upper Extremity Immobilizer: ulnar gutter (Soft roll, plaster, Pedro wrap used for splint application) Additional Comments: splint personally applied and adjusted by me Post Cast/Splinting Neuro Status: intact and no change Post Cast/Splinting Vasc Status: intact and no change Critical Care <Claire Cevallos DO - Last Filed: 05/13/24 23:06> Critical Care Time Critical Care Time: No
--- OUTSIDE RECORDS SUMMARY | 2024-05-13 22:29 | XMS_ITS | Encounter Summary ---
Author Organization [facility] [place] [address] Care Team Providers Care Research Investigator Name Role Phone Maryann Figueroa APRN Primary Care Provider [phone] Encounter Details Date Type Department Care Team (Latest Contact Info) Description 08/16/2020 Travel Social History Tobacco Use Types Packs/Day [...] on file Sexual Orientation Not on file COVID-19 Exposure Response Date Recorded In the last month, have you been in contact with someone who was confirmed or suspected to have Coronavirus / COVID-19? Unable to assess 08/16/2020 8:52 AM EST documented as of this encounter Plan of Treatment Not on file documented as of this encounter Goals Goal Patient Goal Type Associated Problems Recent Progress Patient-Stated? Author Stay Tobacco Free Lifestyle No Shakira Light CCMA documented as of this encounter Visit Diagnoses Not on filedocumented in this encounter Care Teams Research Investigator Relationship Specialty Start Date End Date Maryann Figueroa APRN [address] [place] [address] PCP - General Nurse Practitioner-Family 05/21/17 documented as of this encounter
--- OUTSIDE RECORDS SUMMARY | 2024-05-13 22:29 | XMS_ITS | Encounter Summary ---
Author Organization [place] [address] Care Team Providers Care Electrician Sound Name Role Phone Maryann Figueroa APRN Primary Care Provider [phone] Reason for Visit * Reason Onset Date Comments Paperwork/forms 04/21/2021 pt trying to get social security card and states they need copy of medical records stamped by dr office Encounter Details Date Type Department Care Team (Late st Contact Info) Description 04/21/2021 Telephone [facility] Tahir BARILLAS [address] [place] [phone] Maryann Figueroa APRN [address] [place] [address] Paperwork/forms (pt trying to get social security card and states they need copy of medical records stamped by dr office ) Social History Tobacco Use Types Packs/Day [...] encounter Miscellaneous Notes * Telephone Encounter - Gabriel Conley MA - 05/08/2021 1:34 PM EST Pt grandfather has an appt on Saturday05/12/21, pt would like for her grandmother to pick them up for her at that time. Grandmother on [employer]CF (Francesca Kumar). * Telephone Encounter - Claire Vora RMA - 04/24/2021 9:47 AM EDT Spoke with patient. Papers up front for p/u * Telephone Encounter - Tyra Ferreira CCMA - 04/21/2021 1:25 PM EDT Is this something you can do? * Telephone Encounter - Malorie Segovia, Clerical Staff - 04/21/2021 12:37 PM EDT pt trying to get social security card and states they need copy of medical records stamped by dr office please advise pt if that is something she can obtain from office documented in this encounter Plan of Treatment Not on file documented as of this encounter Goals Goal Patient Goal Type Associated Problems Recent Progress Patient-Stated? Author Stay Tobacco Free Lifestyle No Shakira Light CCMA documented as of this encounter Visit Diagnoses Not on filedocumented in this encounter Care Teams Electrician Sound Relationship Specialty Start Date End Date Maryann Figueroa APRN [address] [place], [place] [address] PCP - General Nurse Practitioner-Family 05/21/17 documented as of this encounter
--- OUTSIDE RECORDS SUMMARY | 2024-05-13 22:29 | XMS_ITS | Encounter Summary ---
Author Organization [place] [address] Care Team Providers Care Vba Programmer Name Role Phone Maryann Figueroa APRN Primary Care Provider [phone] Reason for Visit * Reason Onset Date Comments Medication Refill 07/11/2020 venlafaxine (E FFEXOR-XR) 37.5 mg Oral Capsule, Sust. Release 24 hr Encounter Details Date Type Department Care Team (Late st Contact Info) Description 07/11/2020 Refill [facility] Tahir BARILLAS [address] [place] [address] Maryann Figueroa APRN [address] [place] [address] Medication Refill (venlafaxine (EFFEXOR-XR) 37.5 mg Oral Capsule, Sust. Release 24 hr) Social History Tobacco Use Types Packs/Day Years [...] or suspected to have Coronavirus / COVID-19? No / Unsure 07/11/2020 11:39 AM EST documented as of this encounter Ordered Prescriptions Prescription Sig Dispense Quantity Refills Last Filled Start Date End Date venlafaxine (EFFEXOR-XR) 37.5 mg Oral Capsule, Sust. Release 24 hrIndications:Gener alized anxiety disorder Take 1 Cap by mouth daily. 30 Cap 2 07/11/2020 08/23/2020 omeprazole (PRILOSEC) 20 mg Oral Capsule, Delayed Release(E.C.) Take 1 Cap by mouth daily. 30 Cap 2 07/11/2020 10/17/2020 documented in this encounter Miscellaneous Notes * Telephone Encounter - Tyra Ferreira CCMA - 07/11/2020 11:59 AM EST Done * Telephone Encounter - Kerri Dumont - 07/11/2020 11:43 AM EST Medication Refill Who is requesting the refill: Patient Medication(s)Name/Dosage/Frequency: omeprazole (PRILOSEC) 20 mg Oral Capsule, Delayed Release(E.C.) venlafaxine (EFFEXOR-XR) 37.5 mg Oral Capsule, Sust. Release 24 hr Did patient contact the pharmacy first: N/A How many days left on hand: 0 to both Future appt date w/ prescribing provider: 07/12/20 Pharmacy & Location: [facility] Additional Notes: documented in this encounter Plan [...] TAKE 1 CAPSULE BY MOUTH DAILY Reorder 04/04/2020 07/11/2020 venlafaxine (EFFEXOR-XR) 37.5 mg Oral Capsule, Sust. Release 24 hrIndications:Generalize d anxiety disorder Take 1 Cap by mouth daily. Reorder 04/04/2020 07/11/2020 documented as of this encounter Care Teams Vba Programmer Relationship Specialty Start Date End Date Maryann Figueroa APRN [address] [place] [address] PCP - General Nurse Practitioner-Family 05/21/17 documented as of this encounter
--- OUTSIDE RECORDS SUMMARY | 2024-05-13 22:29 | XMS_ITS | Encounter Summary ---
Author Organization [place] [address] Care Team Providers Care Latex Caster Name Role Phone Maryann Figueroa APRN Primary Care Provider Reason for Visit * Reason Comments Insomnia Otalgia left Encounter Details Date Type Department Care Team (Late st Contact Info) Description 11/14/2021 8:30 AM EDT Office Visit [facility] Tahir BARILLAS [address] [place] [phone] Maryann Figueroa APRN [address] [place] [address] Acute otitis media with effusion of left ear (Primary Dx); Insomnia, persistent Social History Tobacco Use Types Packs/Day Years [...] Sign Reading Time Taken Comments Blood Pressure 122/70 11/14/2021 8:39 AM EDT Pulse 85 11/14/2021 8:39 AM EDT Temperature 36.8 ??C (98.3 ??F) 11/14/2021 8:39 AM ED T Respiratory Rate 18 11/14/2021 8:39 AM EDT Oxygen Saturation 99% 11/14/2021 8:39 AM EDT Inhaled Oxygen Concentration - - Weight 56.2 kg (124 lb) 11/14/2021 8:39 AM EDT Height 166.4 cm (5' 5.5 ) 11/14/2021 8:39 AM EDT Body Mass Index 20.32 11/14/2021 8:39 AM EDT Body Mass Index Percentile 40.61% 11/14/2021 8:3 9 AM EDT Growth Chart: [facility] (Girls, 2- 20 Years) documented in this encounter Ordered Prescriptions Prescription Sig Dispense Quantity Refills Last Filled Start Date End Date traZODone (DESYREL) 50 mg Oral TabletIndications: Insomnia, persistent Take 1 Tablet by mouth nightly. 30 Tablet 2 11/14/2021 2 cefdinir (OMNICEF) 300 mg Oral CapsuleIndications :Acute otitis media with effusion of left ear Take 1 Capsule by mouth 2 times daily for 10 days. 20 Capsule 11/14/2021 2 documented in this encounter Progress Notes * Maryann Figueroa APRN - 11/14/2021 8:30 AM EDT Assessment Diagnoses and all orders for this visit: Acute otitis media with effusion of left ear Comments: continue flonase and claritin. treat residual symptoms with omnicef. Orders: - cefdinir (OMNICEF) 300 mg Oral Capsule; Take 1 Capsule by mouth 2 times daily for 10 days. Dispense: 20 Capsule; Refill: 0 Insomnia, persistent Overview: Night time routine Avoid caffeine, stop smoking cigs and MJ. Ok for PRN trazodone. Orders: - traZODone (DESYREL) 50 mg Oral Tablet; Take 1 Tablet by mouth nightly. Dispense: 30 Tablet; Refill: 2 Progress Note: Vitals: 11/14/21 0839 BP: (!) 122/70 Pulse: 85 Resp: 18 Temp: 98.3 ??F (36.8 ??C) TempSrc: Forehead SpO2: 99% Weight: 124 lb (56.2 kg) Height: 5' 5.5 (1.664 m) SUBJECTIVE: Chief Complaint Patient presents with ??? Insomnia ??? Otalgia left HPI: -recent URI, took course of antibiotics and steroids, has residual ear pain, muffled hearing, congestion. No cough, sob or wheezing. No fever. Is taking claritin and flonase daily. -insomnia, persistent. Goes to bed around 4am and wakes up at 10. Never feels rested. Says her bodyis tired but her mind races. Does smoke cigerettes and MJ daily. Tried melatonin but didn't find iteffective. Tries to stay off her phone. Review of Systems Constitutional: Negative for fever. HENT: Positive for ear pain and hearing loss. Negative for congestion. Respiratory: Negative for cough, shortness of breath and wheezing. Cardiovascular: Negative for chest pain, palpitations and leg swelling. Allergic/Immunologic: Positive for environmental allergies. Psychiatric/Behavioral: Positive for sleep disturbance. OBJECTIVE: Physical Exam Constitutional: Appearance: Normal appearance. HENT: Head: Normocephalic and atraumatic. Right Ear: Tympanic membrane normal. Left Ear: A middle ear effusion is present. Tympanic membrane is bulging. Tympanic membrane has decreased mobility. Cardiovascular: Rate and Rhythm: Normal rate and regular rhythm. Heart sounds: Normal heart sounds. Pulmonary: Effort: Pulmonary effort is normal. Breath sounds: Normal breath sounds. Neurological: General: No focal deficit present. Mental Status: She is alert and oriented to person, place, and time. Psychiatric: Mood and Affect: Mood normal. Thought Content: Thought content normal. Judgment: [...] media with effusion of left ear- Primary Insomnia, persistent Persistent disorder of initiating or maintaining sleep documented in this encounter Care Teams Latex Caster Relationship Specialty Start Date End Date Maryann Figueroa APRN [address] [place] [address] PCP - General Nurse Practitioner-Family 05/21/17 documented as of this encounter
--- OUTSIDE RECORDS SUMMARY | 2024-05-13 22:29 | XMS_ITS | Encounter Summary ---
Author Organization [place] [address] Care Team Providers Care Director Financial Analysis Name Role Phone Maryann Figueroa APRN Primary Care Provider [phone] Reason for Visit * Reason Comments Medication Refill Encounter Details Date Type Department Care Team (Late st Contact Info) Description 10/15/2020 Refill [facility] [address] [place] [phone] Maryann Figueroa APRN [address] [place] [address] Medication Refill Social History Tobacco Use [...] TAKE 1 CAPSULE BY MOUTH DAILY 30 Cap 2 10/17/2020 documented in this encounter Plan of Treatment [...] Release(E.C.) Take 1 Cap by mouth daily. 07/11/2020 10/17/2020 documented as of this encounter Care Teams Director Financial Analysis Relationship Specialty Start Date End Date Maryann Figueroa APRN [address] [place] [address] PCP - General Nurse Practitioner-Family 05/21/17 documented as of this encounter
--- OUTSIDE RECORDS SUMMARY | 2024-05-13 22:29 | XMS_ITS | Encounter Summary ---
Author Organization [place] [address] Care Team Providers Care Bulldogger Name Role Phone Maryann Figueroa APRN Primary Care Provider [phone] Reason for Visit * Reason Onset Date Comments Symptom Call 03/24/2020 cold and congest ion Encounter Details Date Type Department Care Team (Late st Contact Info) Description 03/24/2020 Telephone [facility]P [facility] [address] [place] [id number] Maryann Figueroa APRN [address] [place] [address] Symptom Call (cold and congestion) Social History Tobacco Use Types Packs/Day Years [...] have Coronavirus / COVID-19? No / Unsure 04/07/2020 9:35 AM EDT documented as of this encounter Miscellaneous Notes * Telephone Encounter - Shakira Khan CCMA - 03/24/2020 10:21 AM EDT appt scheduled * Telephone Encounter - Shakira Khan CCMA - 03/24/2020 9:59 AM EDT Lmtrc. Pt needs appt today. * Telephone Encounter - Lizzeth Burroughs - 03/24/2020 9:29 AM EDT Images from the original note were not included. Symptoms Call Who is reporting the symptoms: Other Diedrie What symptom(s) is the patient experiencing: Diedrie states Pt is coming down with what she has, she has coughing, stuffed up, sore throat, no fever, congestion, headache, all sinuses How long have symptoms been present: 3 day(s) ago Has the patient been seen for this: No If no, was an appointment/E-Visit offered/suggested? No, no Has the patient tried anything to relieve the symptoms and did it help: Yes OTC sinus med only helping a very little If pain, what level on scale 1-10 (10 being the greatest): No Pain Desired Outcome: Rx, antibiotic Pharmacy & Location:[facility] - [place] [phone] [facility] [phone] Additional Notes: They would like something called in Please advise Travel Screening Question Response In the last month, have you been in contact with someone who was confirmed or suspected to have Coronavirus / COVID-19? No / Unsure Have you had a COVID-19 viral test in the last 14 days? No Do you have any of the following new or worsening symptoms? Cough Have you traveled internationally in the last month? No Travel History Travel since 02/23/20 No documented travel since 02/23/20 documented in this encounter Plan of Treatment Not on file documented as of this encounter Goals Goal Patient Goal Type Associated Problems Recent Progress Patient-Stated? Author Stay Tobacco Free Lifestyle No Shakira Light CCMA documented as of this encounter Visit Diagnoses Not on filedocumented in this encounter Care Teams Bulldogger Relationship Specialty Start Date End Date Maryann Figueroa APRN [address] [place] [address] PCP - General Nurse Practitioner-Family 05/21/17 documented as of this encounter
--- OUTSIDE RECORDS SUMMARY | 2024-05-13 22:29 | XMS_ITS | Encounter Summary ---
Author Organization [facility] [place] [address] Care Team Providers Care Beauty Sales Advisor Name Role Phone Maryann Figueroa APRN Primary Care Provider [phone] Encounter Details Date Type Department Care Team (Latest Contact Info) Description 07/25/2020 Travel Social History Tobacco Use Types Packs/Day [...] have Coronavirus / COVID-19? No / Unsure 07/25/2020 10:50 AM EST documented as of this encounter Plan of Treatment Not on file documented as of this encounter Goals Goal Patient Goal Type Associated Problems Recent Progress Patient-Stated? Author Stay Tobacco Free Lifestyle No Shakira Light CCMA documented as of this encounter Visit Diagnoses Not on filedocumented in this encounter Care Teams Beauty Sales Advisor Relationship Specialty Start Date End Date Maryann Figueroa APRN [address] [place] [address] PCP - General Nurse Practitioner-Family 05/21/17 documented as of this encounter
--- OUTSIDE RECORDS SUMMARY | 2024-05-13 22:29 | XMS_ITS | Encounter Summary ---
Author Organization [facility] [place] [address] Care Team Providers Care Production Assembler Name Role Phone Maryann Figueroa APRN Primary Care Provider [phone] Encounter Details Date Type Department Care Team (Latest Contact Info) Description 02/23/2020 Travel Social History Tobacco Use Types Packs/Day Years Used Date Smoking Tobacco: Every Day Cigarettes Last attempted to quit: 2016 Smokeless Tobacco: Never Comments:used to smoke 2 cig s/day Alcohol Use Standard Drinks/Week Comments No 0 [...] have Coronavirus / COVID-19? No / Unsure 02/23/2020 2:17 PM EDT documented as of this encounter Plan of Treatment Not on file documented as of this encounter Goals Goal Patient Goal Type Associated Problems Recent Progress Patient-Stated? Author Stay Tobacco Free Lifestyle No Shakira Light CCMA documented as of this encounter Visit Diagnoses Not on filedocumented in this encounter Care Teams Production Assembler Relationship Specialty Start Date End Date Maryann Figueroa APRN [address] [place] [address] PCP - General Nurse Practitioner-Family 05/21/17 documented as of this encounter
--- OUTSIDE RECORDS SUMMARY | 2024-05-13 22:29 | XMS_ITS | Encounter Summary ---
Author Organization [place] [address] Care Team Providers Care Client Engagement Manager Name Role Phone Maryann Figueroa APRN Primary Care Provider [phone] Reason for Referral * Consultation (Routine) - Closed Specialty Diagnoses / Procedures Referred By Cesar morfin Referred To Contact Otolaryngology Diagnoses Bilateral chronic serous otitis media Heaven Alamo MD Kirchhoff, Todd M, MD [address] [place] [address] Phone: tel: fax: Referral ID Status Reason Start Date Expiration Date Visits Re quested Visits Authorized [id number] Closed 12/06/2021 12/06/2022 99 99 Reason for Visit * Reason Comments Other Fluid in her ears fo r 2.5 mths, need a referral for ENT Encounter Details Date Type Department Care Team (Late st Contact Info) Description 12/06/2021 2:50 PM EDT Office Visit [facility] Haro [address] [place] [address] Heaven Alamo MD Bilateral chronic serous otitis media (Primary Dx) Social History Tobacco Use Types [...] Reading Time Taken Comments Blood Pressure 112/76 12/06/2021 3:22 PM EDT Pulse 70 12/06/2021 3:22 PM EDT Temperature 36.4 ??C (97.6 ??F) 12/06/2021 3:22 PM ED T Respiratory Rate 20 12/06/2021 3:22 PM EDT Oxygen Saturation 98% 12/06/2021 3:22 PM EDT Inhaled Oxygen Concentration - - Weight 56.9 kg (125 lb 6.4 oz) 12/06/2021 3:22 P M EDT Height 166.4 cm (5' 5.5 ) 12/06/2021 3:22 PM EDT Body Mass Index 20.55 12/06/2021 3:22 PM EDT Body Mass Index Percentile 43.47% 12/06/2021 3:2 2 PM EDT Growth Chart: [facility] (Girls, 2- 20 Years) documented in this encounter Ordered Prescriptions Prescription Sig Dispense Quantity Refills Last Filled Start Date End Date montelukast (SINGULAIR) 10 mg Oral TabletIndications: Bilateral chronic serous otitis media Take 1 Tablet by mouth nightly. 30 Tablet 2 12/06/2021 02/08/2022 documented in this encounter Progress Notes * Heaven Alamo MD - 12/06/2021 2:50 PM EDT Assessment Diagnoses and all orders for this visit: Bilateral chronic serous otitis media - AMB REFERRAL TO ENT - montelukast (SINGULAIR) 10 mg Oral Tablet; Take 1 Tablet by mouth nightly. Dispense: 30 Tablet; Refill: 2 Progress Note: Vitals: 12/06/21 1522 BP: (!) 112/76 Pulse: 70 Resp: 20 Temp: 97.6 ??F (36.4 ??C) TempSrc: Temporal SpO2: 98% Weight: 125 lb 6.4 oz (56.9 kg) Height: 5' 5.5 (1.664 m) SUBJECTIVE: Chief Complaint Patient presents with ??? Other Fluid in her ears for 2.5 mths, need a referral for ENT HPI: Having fluid in ear for the past 2.5 months. Has seen Maryann. Has a long standing of ear issues. Has has PEtubes in past. Left ear has been feeling bad for the past 2.5 months. Has done clairitn,flonase, omnicef. Review of Systems Constitutional: Negative. HENT: Positive for ear pain. Eyes: Negative. Respiratory: Negative. Cardiovascular: Negative. Gastrointestinal: Negative. Endocrine: Negative. Genitourinary: Negative. Musculoskeletal: Negative. Skin: Negative. Allergic/Immunologic: Negative. Neurological: Negative. Hematological: Negative. Psychiatric/Behavioral: Negative. OBJECTIVE: Physical Exam BP (!) 112/76 Pulse 70 Temp 97.6 ??F (36.4 ??C) (Temporal) Resp 20 Ht 5' 5.5 (1.664 m) Wt 125 lb 6.4 oz (56.9 kg) LMP 10/06/2021 SpO2 98% BMI 20.55 kg/m?? BMI Readings from Last 3 Encounters: 12/06/21 20.55 kg/m?? (43 %, Z= -0.16)* 11/14/21 20.32 kg/m?? (41 %, Z= -0.24)* 09/29/21 20.42 kg/m?? (43 %, Z= -0.18)* * Growth percentiles are based on [facility] (Girls, 2-20 Years) data. Awake/Alert. Nontoxic and Interactive. Mildly ill appearing. Eye exam is normal - ADALID, EOMI, corneas normal, no periorbital cellulitis. Ear exam - Left TM is bulging with serous fluid. External canal normal. Right TM is bulging with serous fluid External canal normal. Oral cavity, tongue, pharynx and palate have no inflammation or suspicious lesions. Tonsils - tonsils are present and normal. The neck is supple and free of adenopathy or masses. Chest is clear, no wheezing or rales. Normal symmetric air entry throughout both lung maradiaga. No chest wall deformities or tenderness. S1 and S2 normal, no murmurs, clicks, gallops or rubs. Regular rate and rhythm. The abdomen is soft without tenderness, guarding, mass, rebound or organomegaly. Bowel sounds are normal. No CVA tenderness or inguinal adenopathy noted. See time date stamps in the EMR for other pertinent history components reviewed as part of today's encounter. Return if symptoms worsen or fail to improve. Heaven Greenwood MD documented in this encounter Plan of Treatment Scheduled Referrals Name Type Priority Associated Diagnoses Orde r Schedule AMB REFERRAL TO ENT Outpatient Referral Routine Bilateral chronic serous otitis media Ordered: 12/06/2021 documented as of this encounter Goals Goal Patient Goal Type Associated Problems Recent Progress Patient-Stated? Author Maintain a healthy diet, exercise regularly and maintain an ideal body weight General No Tyra Ferreira CCMA Stay Tobacco Free Lifestyle No Shakira Light CCMA documented as of this encounter Visit Diagnoses Diagnosis Bilateral chronic serous otitis media- Primary Simple or unspecified chronic serous otitis media documented in this encounter Discontinued Medications Medication Sig Discontinue Reason Start Date End Da te fluticasone propionate (FLONASE) 50 mcg/actuation Nasl [place], SuspensionIndications:Ac pilot point middle ear effusion, left,Seasonal allergic rhinitis due to pollen 2 Sprays by Nasal route daily. Cancelled by 08/29/2021 12/06/2021 documented as of this encounter Care Teams Client Engagement Manager Relationship Specialty Start Date End Date Maryann Figueroa APRN [address] [place] [address] PCP - General Nurse Practitioner-Family 05/21/17 documented as of this encounter
--- OUTSIDE RECORDS SUMMARY | 2024-05-13 22:29 | XMS_ITS | Encounter Summary ---
Author Organization [place] [address] Care Team Providers Care Roof Panel Hanger Name Role Phone Maryann Figueroa APRN Primary Care Provider [phone] Reason for Visit * Reason Comments Other left ear stopped up/ right ear has a sore pimple in it Encounter Details Date Type Department Care Team (Late st Contact Info) Description 08/29/2021 10:20 AM EST Office Visit [facility] BARILLAS [address] [place] [phone] Maryann Figueroa APRN [address] [place] [address] Acute middle ear effusion, left (Primary Dx); Skin pustule; Seasonal allergic rhinitis due to pollen; Need for COVID-19 vaccine Social History Tobacco Use Types Packs/Day Years [...] Sign Reading Time Taken Comments Blood Pressure 102/60 08/29/2021 10:20 AM EST Pulse 65 08/29/2021 10:20 AM EST Temperature 36.6 ??C (97.9 ??F) 08/29/2021 10:[address] Respiratory Rate 18 08/29/2021 10:20 AM EST Oxygen Saturation 99% 08/29/2021 10:20 AM EST Inhaled Oxygen Concentration - - Weight 54.9 kg (121 lb) 08/29/2021 10:20 AM EST Height 170.2 cm (5' 7 ) 08/29/2021 10:20 AM EST Body Mass Index 18.95 08/29/2021 10:20 AM EST Body Mass Index Percentile 22.53% 08/29/2021 10: 20 AM EST Growth Chart: [facility] (Girls, 2- 20 Years) documented in this encounter Ordered Prescriptions Prescription Sig Dispense Quantity Refills Last Filled Start Date End Date loratadine (CLARITIN) 10 mg Oral TabletIndications: Acute middle ear effusion, left,Seasonal allergic rhinitis due to pollen Take 1 Tablet by mouth daily. 30 Tablet 2 08/29/2021 2 fluticasone propionate (FLONASE) 50 mcg/actuation Nasl [place], SuspensionIndicati ons:Acute middle ear effusion, left,Seasonal allergic rhinitis due to pollen 2 Sprays by Nasal route daily. 9.9 mL 2 08/29/2021 2 cefdinir (OMNICEF) 300 mg Oral CapsuleIndications :Acute middle ear effusion, left,Skin pustule Take 1 Capsule by mouth 2 times daily for 10 days. 20 Capsule 08/29/2021 2 documented in this encounter Progress Notes * ComptcheMaryann rockwellAYANNA - 08/29/2021 10:20 AM EST Images from the original note were not included. Assessment Diagnoses and all orders for this visit: Acute middle ear effusion, left - cefdinir (OMNICEF) 300 mg Oral Capsule; Take 1 Capsule by mouth 2 times daily for 10 days. Dispense: 20 Capsule; Refill: 0 - fluticasone propionate (FLONASE) 50 mcg/actuation Nasl [place], Suspension; 2 Sprays by Nasal routedaily. Dispense: 9.9 mL; Refill: 2 - loratadine (CLARITIN) 10 mg Oral Tablet; Take 1 Tablet by mouth daily. Dispense: 30 Tablet; Refill: 2 Skin pustule - cefdinir (OMNICEF) 300 mg Oral Capsule; Take 1 Capsule by mouth 2 times daily for 10 days. Dispense: 20 Capsule; Refill: 0 Seasonal allergic rhinitis due to pollen - fluticasone propionate (FLONASE) 50 mcg/actuation Nasl [place], Suspension; 2 Sprays by Nasal routedaily. Dispense: 9.9 mL; Refill: 2 - loratadine (CLARITIN) 10 mg Oral Tablet; Take 1 Tablet by mouth daily. Dispense: 30 Tablet; Refill: 2 Need for COVID-19 vaccine - PFIZER SARS-COV-2 VACCINE PEDIATRIC Progress Note: Vitals: 08/29/21 1020 BP: 102/60 Pulse: 65 Resp: 18 Temp: 97.9 ??F (36.6 ??C) TempSrc: Forehead SpO2: 99% Weight: 121 lb (54.9 kg) Height: 5' 7 (1.702 m) SUBJECTIVE: Chief Complaint Patient presents with ??? Other left ear stopped up/right ear has a sore pimple in it HPI: Left ear pain for a month, muffled hearing. PND sore throat. Pustule to right outer ear canal that is sore to touch. Wants COVID vaccine. Review of Systems Constitutional: Negative for fever. HENT: Positive for ear pain, postnasal drip and sore throat. Negative for congestion. Respiratory: Negative for cough, shortness of breath and wheezing. Cardiovascular: Negative for chest pain, palpitations and leg swelling. Gastrointestinal: Negative for abdominal pain. Musculoskeletal: Negative for myalgias. Skin: Positive for wound. Hematological: Negative for adenopathy. Does not bruise/bleed easily. OBJECTIVE: Physical Exam Constitutional: Appearance: Normal appearance. HENT: Head: Normocephalic and atraumatic. Right Ear: A middle ear effusion is present. Left Ear: A middle ear effusion is present. Tympanic membrane is erythematous and retracted. Ears: Mouth/Throat: Pharynx: Posterior oropharyngeal erythema (cobblestone appearance) present. Cardiovascular: Rate and Rhythm: Normal rate and regular rhythm. Heart sounds: Normal heart sounds. Pulmonary: Effort: Pulmonary effort is normal. Breath sounds: Normal breath sounds. Lymphadenopathy: Cervical: Cervical adenopathy present. Skin: General: Skin is warm and dry. Neurological: General: No focal deficit present. Mental Status: She is alert and oriented to person, place, and time. Psychiatric: Mood and Affect: Mood normal. documented in this encounter Plan of [...] Visit Diagnoses Diagnosis Acute middle ear effusion, left- Primary Skin pustule Unspecified local infection of skin and subcutaneous tissue Seasonal allergic rhinitis due to pollen Need for COVID-19 vaccine documented in this encounter Discontinued Medications Medication Sig Discontinue Reason Start Date End Da te fluticasone propionate (FLONASE) 50 mcg/actuation Nasl [place], SuspensionIndications:Se asonal allergic rhinitis due to pollen 2 Sprays by Nasal route daily. Reorder 10/17/2020 08/29/2021 documented as of this encounter Orders Immunization/Injection Count Last Ordered Date First Ordered Date PFIZER SARS-COV-2 VACCINE TR IS-SUCROSE (CAVAZOS CAP) 1 08/29/2021 documented in this encounter Care Teams Roof Panel Hanger Relationship Specialty Start Date End Date Maryann Figueroa APRN [address] [place], [place] [address] PCP - General Nurse Practitioner-Family 05/21/17 documented as of this encounter
--- OUTSIDE RECORDS SUMMARY | 2024-05-13 22:29 | XMS_ITS | Encounter Summary ---
Author Organization [place] [address] Care Team Providers Care Coal Trimmer Name Role Phone Maryann Figueroa APRN Primary Care Provider [phone] Reason for Visit * Reason Comments Medication Refill Encounter Details Date Type Department Care Team (Late st Contact Info) Description 04/13/2021 Refill [facility] [address] [place] [address] Ketan Fonseca MD [address] [place] [address] Medication Refill Social History Tobacco Use Types [...] Refills Last Filled Start Date End Date PARoxetine (PAXIL) 10 mg Oral TabletIndications: Generalized anxiety disorder TAKE ONE TABLET BY MOUTH ONCE DAILY 30 Tablet 2 04/14/2021 09/29/2021 documented in this encounter Plan of Treatment Not on file documented as of this encounter Goals Goal Patient Goal Type Associated Problems Recent Progress Patient-Stated? Author Stay Tobacco Free Lifestyle No Shakira Light CCMA documented as of this encounter Visit Diagnoses Diagnosis Generalized anxiety disorder documented in this encounter Discontinued Medications Medication Sig Discontinue Reason Start Date End Da te PARoxetine (PAXIL) 10 mg Oral TabletIndications:Genera lized anxiety disorder TAKE ONE TABLET BY MOUTH ONCE DAILY 12/05/2020 04/14/2021 documented as of this encounter Care Teams Coal Trimmer Relationship Specialty Start Date End Date Maryann Figueroa APRN [address] [place], [place] [address] PCP - General Nurse Practitioner-Family 05/21/17 documented as of this encounter
--- OUTSIDE RECORDS SUMMARY | 2024-05-13 22:29 | XMS_ITS | Encounter Summary ---
Author Organization [place] [address] Care Team Providers Care Equal Opportunity Counselor Name Role Phone Maryann Figueroa APRN Primary Care Provider [phone] Reason for Visit * Reason Comments Annual Exam bloodword, mom davi rned about vit D COVID-19 Vaccine second dose Encounter Details Date Type Department Care Team (Late st Contact Info) Description 09/29/2021 2:00 PM EDT Office Visit SEP Tahir BARILLAS [address] [place] [address] Maryann Figueroa APRN [address] [place] [phone] Encounter for routine child health examination without abnormal findings (Primary Dx); Malaise and fatigue; No appetite; Need for COVID-19 vaccine; Tattoos; Middle ear effusion, left; Marijuana use; Cigarette smoker; Major depressive disorder, recurrent episode, mild (HCC) Social History Tobacco Use Types Packs/Day Years [...] Sign Reading Time Taken Comments Blood Pressure 104/68 09/29/2021 2:09 PM EDT Pulse 100 09/29/2021 2:09 PM EDT Temperature 37.1 ??C (98.8 ??F) 09/29/2021 2:09 PM ED T Respiratory Rate 18 09/29/2021 2:09 PM EDT Oxygen Saturation 99% 09/29/2021 2:09 PM EDT Inhaled Oxygen Concentration - - Weight 56.5 kg (124 lb 9.6 oz) 09/29/2021 2:09 P M EDT Height 166.4 cm (5' 5.5 ) 09/29/2021 2:09 PM EDT Body Mass Index 20.42 09/29/2021 2:09 PM EDT Body Mass Index Percentile 42.67% 09/29/2021 2:0 9 PM EDT Growth Chart: [facility] (Girls, 2- 20 Years) documented in this encounter Ordered Prescriptions Prescription Sig Dispense Quantity Refills Last Filled Start Date End Date amoxicillin-clavul anate (AUGMENTIN) 875-125 mg Oral TabletIndications: Middle ear effusion, left Take 1 Tablet by mouth 2 times daily for 10 days. 20 Tablet 09/29/2021 10/09/2021 PARoxetine (PAXIL) 20 mg Oral TabletIndications: Major depressive disorder, recurrent episode, mild (HCC) Take 1 Tablet by mouth daily. 90 Tablet 2 09/29/2021 03/17/2024 documented in this encounter Progress Notes * Maryann Figueroa APRN - 09/29/2021 2:38 PM EDTAssociated Problem(s): Cigarette smoker Encouraged cessation * Maryann Figueroa APRN - 09/29/2021 2:38 PM EDTAssociated Problem(s): Marijuana use Encouraged cessation * Maryann Figueroa APRN - 09/29/2021 2:00 PM EDT Assessment Diagnoses and all orders for this visit: Encounter for routine child health examination without abnormal findings Malaise and fatigue - CBC WITH DIFF; Future - COMPREHENSIVE METABOLIC PANEL; Future - TSH REFLEX; Future - VITAMIN D 25 HYDROXY; Future No appetite - CBC WITH DIFF; Future - COMPREHENSIVE METABOLIC PANEL; Future - TSH REFLEX; Future - VITAMIN D 25 HYDROXY; Future Need for COVID-19 vaccine - PFIZER SARS-COV-2 VACCINE PEDIATRIC Tattoos - HEPATITIS C ANTIBODY - SCREENING; Future Middle ear effusion, left Comments: continue floase/claritin, treat with augmentin Orders: - amoxicillin-clavulanate (AUGMENTIN) 875-125 mg Oral Tablet; Take 1 Tablet by mouth 2 times daily for 10 days. Dispense: 20 Tablet; Refill: 0 Marijuana use Assessment & Plan: Encouraged cessation Cigarette smoker Assessment & Plan: Encouraged cessation Major depressive disorder, recurrent episode, mild (HCC) (Chronic) Overview: Side effects to effexor in past paxil helped some but needs dose increase Orders: - PARoxetine (PAXIL) 20 mg Oral Tablet; Take 1 Tablet by mouth daily. Dispense: 90 Tablet; Refill: 2 Progress Note: Vitals: 09/29/21 1409 BP: 104/68 Pulse: 100 Resp: 18 Temp: 98.8 ??F (37.1 ??C) SpO2: 99% Weight: 124 lb 9.6 oz (56.5 kg) Height: 5' 5.5 (1.664 m) SUBJECTIVE: Chief Complaint Patient presents with ??? Annual Exam bloodwóscar, mom concerned about vit D ??? COVID-19 Vaccine second dose HPI: Well Child: Well Child Visit 12-17 Year Old: SUBJECTIVE: 16 y.o. female brought in by mother for routine check up. Parental concerns: - no appetite, never eats, always tired. -continued left ear pain with muffled hearing. On claritin and flonase and took Omnicef a month ago without much improvement. Review: Allergies: [employer] allergy list updated and can be noted below under ALLERGIES. Diet: Poor appetite Sleep: occasinaly trouble falling asleep and stayin asleep Behavioral problems: none Social interactions: normal Activity level: normal Recent Illnesses: School performance: Starting in the 22 and out program with care - will come into the 9th grade Sports/Extracurricular activities: none Growth & Development: Writes at an age appropriate level: yes Reads at an age appropriate level: yes Doing math in school and doing well: yes Engages in conversation: yes Avoids drugs, tobacco, alcohol: no Up to date on immunizations including Meningococcal and Gardisil: yes Females only: Has started menses: {Yes No Known Allergies Current Outpatient Medications on File Prior to Visit Medication Sig Dispense Refill ??? fluticasone propionate (FLONASE) 50 mcg/actuation Nasl Hostetter, Suspension 2 Sprays by Nasal route daily. 9.9 mL 2 ??? loratadine (CLARITIN) 10 mg Oral Tablet Take 1 Tablet by mouth daily. 30 Tablet 2 ??? omeprazole (PRILOSEC) 20 mg Oral Capsule, Delayed Release(E.C.) TAKE 1 CAPSULE BY MOUTH DAILY 30 Capsule 2 No current facility-administered medications on file prior to visit. History reviewed. No pertinent past medical history. Review of Systems Constitutional: Positive for appetite change and fatigue. Negative for activity change, fever and unexpected weight change. HENT: Positive for ear pain and hearing loss. Negative for congestion, rhinorrhea, sneezing and sore throat. Eyes: Negative for photophobia, pain, discharge and visual disturbance. Respiratory: Negative for cough, shortness of breath, wheezing and stridor. Cardiovascular: Negative for chest pain, palpitations and leg swelling. Gastrointestinal: Negative for abdominal pain, constipation, diarrhea, nausea and vomiting. Endocrine: Negative for polydipsia, polyphagia and polyuria. Genitourinary: Negative for decreased urine volume, dysuria, frequency and urgency. Musculoskeletal: Negative for back pain, gait problem and joint swelling. Skin: Negative for color change, rash and wound. Neurological: Negative for dizziness, weakness, numbness and headaches. Hematological: Negative for adenopathy. Does not bruise/bleed easily. Psychiatric/Behavioral: Positive for decreased concentration, dysphoric mood and sleep disturbance.Negative for confusion. The patient is not nervous/anxious. OBJECTIVE: Physical Exam Constitutional: Appearance: She is well-developed. HENT: Head: Normocephalic and atraumatic. Right Ear: Tympanic membrane normal. Left Ear: A middle ear effusion is present. Tympanic membrane is bulging. Tympanic membrane has decreased mobility. Eyes: Pupils: Pupils are equal, round, and reactive to light. Neck: Thyroid: No thyromegaly. Cardiovascular: Rate and Rhythm: Normal rate and regular rhythm. Heart sounds: Normal heart sounds. No murmur heard. No friction rub. No gallop. Pulmonary: Effort: Pulmonary effort is normal. Breath sounds: Normal breath sounds. No wheezing or rales. Abdominal: Palpations: Abdomen is soft. Tenderness: There is no abdominal tenderness. There is no guarding or rebound. Musculoskeletal: Cervical back: Normal range of motion and neck supple. Lymphadenopathy: Cervical: No cervical adenopathy. Skin: General: Skin is warm and dry. Coloration: Skin is not pale. Findings: No erythema or rash. Neurological: Mental Status: She is alert and oriented to person, place, and time. Cranial Nerves: No cranial nerve deficit. Psychiatric: Behavior: Behavior normal. Thought Content: Thought content normal. Judgment: Judgment normal. * Cindy Smart - 09/29/2021 2:00 PM EDT Venipuncture in the right antecubital vein [...] Procedure Name Priority Date/Time Associated Diagnosis Comments HCV ANTIBODY SCREEN W/ REFLEX Routine 09/29/2021 2:41 PM EDT Tattoos TSH REFLEX Routine 09/29/2021 2:41 PM EDT Malaise and fatigue No appetite VITAMIN D 25 HYDROXY Routine 09/29/2021 2:41 PM EDT Malaise and fatigue No appetite CBC WITH DIFF Routine 09/29/2021 2:41 PM EDT Malaise and fatigue No appetite COMPREHENSIVE METABOLIC PANEL Routine 09/29/2021 2:41 PM EDT Malaise and fatigue No appetite documented in this encounter Results * (ABNORMAL) VITAMIN D 25 HYDROXY (09/29/2021 2:41 PM EDT) Vit D 25 OH 8.6(L) 30.0 - 150.0 ng/mL 09/29/2021 9:21 PM EDT [facility] [employer] Comment: Preferred: >= 30 ng/mL Insufficient: 21-29 ng/mL Deficient <= 20 ??ng/mL Possible Toxicity: >150 ng/mL Samples should not be taken from patients receiving therapy with high biotin doses (i.e. > 5 mg/day) until at least 8 hours following the last biotin administration. Blood Venipuncture / Unknown 09/29/2021 2:41 PM EDT 09/29/2021 2:41 PM EDT Maryann Figueroa DIRECTOR OF MEDIA CHEMISTRY ORDERABLES Final Result [facility] [employer] [address] [facility] , [address] [place] [id number] * TSH REFLEX (09/29/2021 2:41 PM EDT) [facility] TSH Reflex 1.060 0.270 - 4.200 mcIU/mL 09/29/2021 8:36 PM EDT [facility]REFERRED [employer] [facility] Blood VENOUS BLOOD / Unknown Venipuncture / Unknown 09/29/2021 2:41 PM EDT 09/29/2021 2:41 PM EDT Narrative [facility], [facility] - 09/29/2021 8:36 PM EDT Ingestion of silvestre doses of biotin (>5 mg/day) taken within 8 hours of drawing blood sample can interfere with this immunoassay test. Maryann Carolina APRN CHEMISTRY ORDERABLES Final Result Performing Organization Address [facility] Co de Phone Number [facility]un[address] , [place] [address] * HEPATITIS C ANTIBODY - SCREENING (09/29/2021 2:41 PM EDT) [facility] Hep C Ab Non-Reactiv e Non-Reacti ve 09/29/2021 8:58 PM EDT [facility], [facility] Blood VENOUS BLOOD / Unknown Venipuncture / Unknown 09/29/2021 2:41 PM EDT 09/29/2021 2:41 PM EDT [facility] H[facility] ORDERAB[facility] Final Result Performing Organization Address City/[facility]/ZIP Co de Phone Number [facility] [address] [facility] , [place] [address] * (ABNORMAL) COMPREHENSIVE METABOLIC PANEL (09/29/2021 2:41 PM EDT) [facility] Sodium 143 136 - 145 mmol/L 09/29/2021 8:36 PM EDT [facility], [facility] Potassium 4.1 3.5 - 5.0 mmol/L 09/29/2021 8:36 PM EDT [facility], [facility] Chloride 104 98 - 107 mmol/L 09/29/2021 8:36 PM EDT [facility] Total CO2 27 22 - 29 mmol/L 09/29/2021 8:36 PM EDT [facility] Anion Gap 12 7 - 16 mmol/L 09/29/2021 8:36 PM EDT [facility] Calcium 9.8 8.4 - 10.2 mg/dL 09/29/2021 8:36 PM EDT [facility] Glucose Lvl 89 60 - 100 mg/dL 09/29/2021 8:36 PM EDT [facility] BUN 8 5 - 18 mg/dL 09/29/2021 8:36 PM EDT [facility] Creatinine 0.83 0.51 - 1.30 mg/dL 09/29/2021 8:36 PM EDT [facility] Albumin 5.1(H) 3.2 - 4.5 gm/dL 09/29/2021 8:36 PM EDT [facility] Total Protein 7.2 5.7 - 8.0 gm/dL 09/29/2021 8:36 PM EDT [facility] Bili Total 0.2 0.1 - 1.3 mg/dL 09/29/2021 8:36 PM EDT [facility] ALT 18 <=41 U/L 09/29/2021 8:36 PM EDT [facility] AST 24 <=40 U/L 09/29/2021 8:36 PM EDT [facility] Alk Phos 92 47 - 119 U/L 09/29/2021 8:36 PM EDT [facility] eGFR (CKD-EPIcr 2020) 09/29/2021 8:36 PM EDT [facility] Comment:GFR calculation is v alid only for adults over 18. Blood VENOUS BLOOD / Unknown Venipuncture / Unknown 09/29/2021 2:41 PM EDT 09/29/2021 2:41 PM EDT Narrative [facility] - 09/29/2021 8:36 PM EDT Pediatric reference intervals are based on published literature and have not been verified by this lab. Maryann Figueroa DIRECTOR OF MEDIA CHEMISTRY ORDERABLES Final Result [facility] [address] [facility] , [place] [address] [facility] [address] [place] [address] * (ABNORMAL) CBC WITH DIFF (09/29/2021 2:41 PM EDT) WBC 8.4 3.8 - 9.8 x10(3)/mcL 09/29/2021 7:44 PM EDT [facility] RBC 4.43 3.90 - 5.30 x10(6)/mcL 09/29/2021 7:44 PM EDT [facility] Hgb 14.1 10.8 - 14.5 g/dL 09/29/2021 7:44 PM EDT [facility] Hct 43.0 33.0 - 44.0 % 09/29/2021 7:44 PM EDT [facility] MCV 97.1(H) 77.0 - 91.0 fL 09/29/2021 7:44 PM EDT [facility] MCH 31.8(H) 25.0 - 30.0 pg 09/29/2021 7:44 PM EDT [facility] MCHC 32.8 31.5 - 34.8 g/dL 09/29/2021 7:44 PM EDT [facility] RDW 14.0 <=14.6 % 09/29/2021 7:44 PM EDT [facility] Platelet 249 175 - 345 x10(3)/mcL 09/29/2021 7:44 PM EDT [facility] MPV 9.9 9.6 - 11.8 fL 09/29/2021 7:44 PM EDT [facility] Neut Percent 66.0 % 09/29/2021 7:44 PM EDT [facility] Comment:Neutrophils equals s egs plus bands Imm Gran% 0.5 % 09/29/2021 7:44 PM EDT [facility] Comment:Automated count of m etamyelocytes, myelocytes and promyelocytes. Lymph Percent 25.6 % 09/29/2021 7:44 PM EDT [facility] Mills Percent 6.5 % 09/29/2021 7:44 PM EDT [facility] Eos Percent 0.9 % 09/29/2021 7:44 PM EDT [facility] Baso Percent 0.5 % 09/29/2021 7:44 PM EDT [facility] Neut # 5.6 1.5 - 7.5 x10(3)/[facility] 09/29/2021 7:44 PM EDT [facility] Comment:Neutrophils equals s egs plus bands IMMGRAN# 0.0 0.0 - 0.1 x10(3)/mcL 09/29/2021 7:44 PM EDT [facility] Comment:Automated count of m etamyelocytes, myelocytes and promyelocytes. An absolute IG <0.1 is reported as 0.0. Lymph # 2.2 1.0 - 3.3 x10(3)/mcL 09/29/2021 7:44 PM EDT [facility] Mills # 0.6 0.2 - 0.8 x10(3)/[facility] 09/29/2021 7:44 PM EDT [facility] Eos# 0.1 0.0 - 0.4 x10(3)/[facility] 09/29/2021 7:44 PM EDT [facility] Baso # 0.0 0.0 - 0.1 x10(3)/[facility] 09/29/2021 7:44 PM EDT [facility] Blood Venipuncture / Unknown 09/29/2021 2:41 PM EDT 09/29/2021 2:41 PM EDT Maryann Figueroa DIRECTOR OF MEDIA HEMATOLOGY ORDERABLES Final Result [facility], [facility] [address] [facility] , [address] [place] [id number] documented in this encounter Visit Diagnoses Diagnosis Encounter for routine child health examination without abnormal findings- Primary Routine infant or child health check Malaise and fatigue Other malaise and fatigue No appetite Anorexia Need for COVID-19 vaccine Tattoos Other dyschromia Middle ear effusion, left Marijuana use Cannabis abuse, unspecified Cigarette smoker Tobacco use disorder Major depressive disorder, recurrent episode, mild (HCC) Major depressive disorder, recurrent episode, mild documented in this encounter Discontinued Medications Medication Sig Discontinue Reason Start Date End Da te PARoxetine (PAXIL) 10 mg Oral TabletIndications:Gene ralized anxiety disorder TAKE ONE TABLET BY MOUTH ONCE DAILY DELETE-Therapy completed 04/14/2021 09/29/2021 documented as of this encounter Orders Immunization/Injection Count Last Ordered Date First Ordered Date Locally SARS-COV-2 VACCINE TR IS-SUCROSE (CAVAZOS CAP) 1 09/29/2021 documented in this encounter Care Teams Equal Opportunity Counselor Relationship Specialty Start Date End Date Maryann Figueroa APRN [address] [place], [place] [address] PCP - General Nurse Practitioner-Family 05/21/17 documented as of this encounter
--- OUTSIDE RECORDS SUMMARY | 2024-05-13 22:29 | XMS_ITS | Encounter Summary ---
Author Organization [place] [address] Care Team Providers Care Four Horse Hitch Driver Name Role Phone Maryann Figueroa APRN Primary Care Provider [phone] Reason for Visit * Reason Comments Medication Refill Encounter Details Date Type Department Care Team (Late st Contact Info) Description 04/02/2020 Refill SEP Tahir [address] [place] [phone] Maryann Figueroa APRN [address] [place] [address] Medication Refill Social History Tobacco Use [...] have Coronavirus / COVID-19? No / Unsure 03/24/2020 10:08 AM EDT documented as of this encounter Ordered Prescriptions Prescription Sig Dispense Quantity Refills Last Filled Start Date End Date omeprazole (PRILOSEC) 20 mg Oral Capsule, Delayed Release(E.C.) TAKE 1 CAPSULE BY MOUTH DAILY 30 Cap 2 04/04/2020 1 documented in this encounter Plan of Treatment [...] Release(E.C.) TAKE 1 CAPSULE BY MOUTH DAILY 12/15/2019 04/04/2020 documented as of this encounter Care Teams Four Horse Hitch Driver Relationship Specialty Start Date End Date Maryann Figueroa APRN [address] [place], [place] [address] PCP - General Nurse Practitioner-Family 05/21/17 documented as of this encounter
--- OUTSIDE RECORDS SUMMARY | 2024-05-13 22:29 | XMS_ITS | Encounter Summary ---
Author Organization [place] [address] Care Team Providers Care Director Of Social Services Name Role Phone Maryann Figueroa APRN Primary Care Provider [phone] Reason for Visit * Reason Comments Medication Refill Encounter Details Date Type Department Care Team (Late st Contact Info) Description 10/09/2021 Refill SEP Tahir [address] [place] [phone] Maryann Figueroa APRN [address] [place] [address] Medication Refill Social History Tobacco Use [...] CAPSULE BY MOUTH DAILY 30 Capsule 2 10/09/2021 2 documented in this encounter Plan of [...] Release(E.C.) TAKE 1 CAPSULE BY MOUTH DAILY 06/08/2021 10/09/2021 documented as of this encounter Care Teams Director Of Social Services Relationship Specialty Start Date End Date Maryann Fig[place]ero[place] [address] [place] [address] PCP - General Nurse Practitioner-Family 05/21/17 documented as of this encounter
--- OUTSIDE RECORDS SUMMARY | 2024-05-13 22:29 | XMS_ITS | Encounter Summary ---
Author Organization [place] [address] Care Team Providers Care Fishing Rod Assembler Name Role Phone Maryann Figueroa APRN Primary Care Provider [phone] Reason for Visit * Reason Comments Medication Refill Encounter Details Date Type Department Care Team (Late st Contact Info) Description 01/30/2021 Refill SEP Tahir [address] [place] [phone] Maryann Figueroa APRN [address] [place] [address] Medication Refill Social History Tobacco Use [...] CAPSULE BY MOUTH DAILY 30 Capsule 2 01/30/2021 documented in this encounter Plan of Treatment [...] Release(E.C.) TAKE 1 CAPSULE BY MOUTH DAILY 10/17/2020 01/30/2021 documented as of this encounter Care Teams Fishing Rod Assembler Relationship Specialty Start Date End Date Maryann Figueroa APRN [address] [place], [place] [address] PCP - General Nurse Practitioner-Family 05/21/17 documented as of this encounter
--- OUTSIDE RECORDS SUMMARY | 2024-05-13 22:29 | XMS_ITS | Encounter Summary ---
Author Organization [place] [address] Care Team Providers Care Sheltered Workshop Worker Name Role Phone Maryann Figueroa APRN Primary Care Provider [phone] Encounter Details Date Type Department Care Team (Late st Contact Info) Description 10/02/2021 Orders Only SEP Tahir [address] [place] [address] Maryann Figueroa APRN [address] [place] [address] Social History Tobacco Use Types Packs/Day Years [...] Last Filled Start Date End Date ergocalciferol (VITAMIN D) 1,250 mcg (50,000 unit) Oral Capsule Take 1 Capsule by mouth two times a week. 8 Capsule 3 10/02/2021 2 documented in this encounter Plan of [...] on filedocumented in this encounter Care Teams Sheltered Workshop Worker Relationship Specialty Start Date End Date Maryann Figueroa APRN [address] [place] [address] PCP - General Nurse Practitioner-Family 05/21/17 documented as of this encounter
--- OUTSIDE RECORDS SUMMARY | 2024-05-13 22:29 | XMS_ITS | Encounter Summary ---
Author Organization [place] [address] Care Team Providers Care Truck Car And Bus Cleaner Name Role Phone Maryann Figueroa APRN Primary Care Provider [phone] Reason for Visit * Reason Comments Other pleuritic chest pain on going Otalgia Abdominal Pain Encounter Details Date Type Department Care Team (Latest Contact Info) Description 08/23/2020 2:40 PM EST Office Visit [facility] [address] [place] [address] Ketan Fonseca MD [address] [place] [address] Chest wall pain (Primary Dx); Need for meningococcal vaccination; Generalized anxiety disorder; Nausea Social History Tobacco Use Types Packs/Day Years [...] AM EST documented as of this encounter Last Filed Vital Signs Vital Sign Reading Time Taken Comments Blood Pressure 120/78 08/23/2020 2:51 PM EST Pulse 88 08/23/2020 2:51 PM EST Temperature 36.7 ??C (98 ??F) 08/23/2020 2:51 PM EST Respiratory Rate 18 08/23/2020 2:51 PM EST Oxygen Saturation 97% 08/23/2020 2:51 PM EST Inhaled Oxygen Concentration - - Weight 57.6 kg (127 lb) 08/23/2020 2:51 PM EST Height 170.2 cm (5' 7 ) 08/23/2020 2:51 PM EST Body Mass Index 19.89 08/23/2020 2:51 PM EST Body Mass Index Percentile 42.00% 08/23/2020 2:5 1 PM EST Growth Chart: [facility] (Girls, 2- 20 Years) documented in this encounter Ordered Prescriptions Prescription Sig Dispense Quantity Refills Last Filled Start Date End Date PARoxetine (PAXIL) 10 mg Oral TabletIndications:G eneralized anxiety disorder Take 1 Tab by mouth daily. 30 Tab 2 08/23/2020 12/05/2020 documented in this encounter Progress Notes * Ketan Fonseca MD - 08/23/2020 2:40 PM EST Assessment Diagnoses and all orders for this visit: Chest wall pain - XR CHEST PA AND LATERAL; Future Need for meningococcal vaccination - MENINGOCOCCAL CONJUGATE VACCINE 4-VALENT IM Generalized anxiety disorder - PARoxetine (PAXIL) 10 mg Oral Tablet; Take 1 Tab by mouth daily. Dispense: 30 Tab; Refill: 2 Nausea Comments: ? due to effexor. stop effexor. if no better after 2 weeks, will consider RUQ ultrasound. Progress Note: Vitals: 08/23/20 1451 BP: 120/78 Pulse: 88 Resp: 18 Temp: 98 ??F (36.7 ??C) SpO2: 97% Weight: 127 lb (57.6 kg) Height: 5' 7 (1.702 m) SUBJECTIVE: Chief Complaint Patient presents with ??? Other pleuritic chest pain on going ??? Otalgia ??? Abdominal Pain Wt Readings from Last 3 Encounters: 08/23/20 127 lb (57.6 kg) (64 %, Z= 0.36)* 04/07/20 123 lb (55.8 kg) (60 %, Z= 0.24)* 04/04/20 126 lb (57.2 kg) (65 %, Z= 0.37)* * Growth percentiles are based on CDC (Girls, 2-20 Years) data. HPI: still with cough and chest tightness. Ears hurt, feel full. Sometimes feels like 'air' blowing through the ears. Nausea, constantly. For the past several months. Doesn't seem to be related to eating. Lower abdominal pain. Review of Systems Respiratory: Positive for cough and chest tightness. Gastrointestinal: Positive for nausea. OBJECTIVE: Physical Exam Vitals signs reviewed. Constitutional: General: She is not in acute distress. Appearance: She is well-developed. She is not diaphoretic. HENT: Head: Normocephalic and atraumatic. Right Ear: External ear normal. Left Ear: External ear normal. Mouth/Throat: Pharynx: No oropharyngeal exudate. Eyes: General: No scleral icterus. Right eye: No discharge. Left eye: No discharge. Conjunctiva/sclera: Conjunctivae normal. Pupils: Pupils are equal, round, and reactive to light. Neck: Musculoskeletal: Normal range of motion and neck supple. Thyroid: No thyromegaly. Cardiovascular: Rate and Rhythm: Normal rate and regular rhythm. Heart sounds: Normal heart sounds. No murmur. No gallop. Pulmonary: Effort: Pulmonary effort is normal. No respiratory distress. Breath sounds: Normal breath sounds. No wheezing or rales. Chest: Chest wall: No tenderness. Abdominal: General: Bowel sounds are normal. Palpations: Abdomen is soft. There is no mass. Tenderness: There is abdominal tenderness. There is no guarding or rebound. Musculoskeletal: Normal range of motion. General: No tenderness. Lymphadenopathy: Cervical: No cervical adenopathy. Skin: General: Skin is warm and dry. Neurological: Mental Status: She is alert and oriented to person, place, and time. documented in this encounter Plan of Treatment Scheduled Orders Name Type Priority Associated Diagnoses Orde r Schedule XR CHEST PA AND LATERAL Imaging Routine Chest wall pain 1 Occurrences starting 08/23/2020 until 08/23/2021 documented as of this encounter Goals Goal Patient Goal Type Associated Problems Recent Progress Patient-Stated? Author Stay Tobacco Free Lifestyle No Shakira Light CCMA documented as of this encounter Visit Diagnoses Diagnosis Chest wall pain- Primary Painful respiration Need for meningococcal vaccination Generalized anxiety disorder Nausea Nausea alone documented in this encounter Discontinued Medications Medication Sig Discontinue Reason Start Date End Da te fluconazole (DIFLUCAN) 150 mg Oral TabletIndications:Yeas t dermatitis 1 tablet now and repeat in one week. DELETE- Entered in Error 04/07/2020 08/23/2020 venlafaxine (EFFEXOR-XR) 37.5 mg Oral Capsule, Sust. Release 24 hrIndications:Generali zed anxiety disorder Take 1 Cap by mouth daily. Cancelled by 07/11/2020 08/23/2020 documented as of this encounter Orders Immunization/Injection Count Last Ordered Date First Ordered Date MENINGOCOCCAL CONJUGATE VACC INE 4-VALENT IM 1 08/23/2020 documented in this encounter Care Teams Truck Car And Bus Cleaner Relationship Specialty Start Date End Date Maryann Figueroa APRN [address] [place] [id number] PCP - General Nurse Practitioner-Family 05/21/17 documented as of this encounter
--- OUTSIDE RECORDS SUMMARY | 2024-05-13 22:29 | XMS_ITS | Encounter Summary ---
Author Organization [facility] [place] [address] Care Team Providers Care Permit Agent Name Role Phone Maryann Figueroa APRN Primary Care Provider [phone] Encounter Details Date Type Department Care Team (Latest Contact Info) Description 07/12/2020 Travel Social History Tobacco Use Types Packs/Day [...] have Coronavirus / COVID-19? No / Unsure 07/12/2020 10:24 AM EST documented as of this encounter Plan of Treatment Not on file documented as of this encounter Goals Goal Patient Goal Type Associated Problems Recent Progress Patient-Stated? Author Stay Tobacco Free Lifestyle No Shakira Light CCMA documented as of this encounter Visit Diagnoses Not on filedocumented in this encounter Care Teams Permit Agent Relationship Specialty Start Date End Date Maryann Figueroa APRN [address] [place] [address] PCP - General Nurse Practitioner-Family 05/21/17 documented as of this encounter
--- OUTSIDE RECORDS SUMMARY | 2024-05-13 22:29 | XMS_ITS | Encounter Summary ---
Author Organization [facility] [place] [address] Care Team Providers Care Watershed Program Manager Name Role Phone Maryann Figueroa APRN Primary Care Provider [phone] Reason for Visit * Reason Comments Migraine Chest Pain for 3 days Encounter Details Date Type Department Care Team (Late st Contact Info) Description 04/04/2020 1:40 PM EDT Office Visit [facility] [place] [id number] William Fonseca MD [address] [place] [address] [place] [address] Generalized anxiety disorder (Primary Dx); Seasonal allergic rhinitis due to pollen; Tension headache Social History Tobacco Use Types Packs/Day Years [...] have Coronavirus / COVID-19? No / Unsure 04/04/2020 9:07 AM EDT documented as of this encounter Last Filed Vital Signs Vital Sign Reading Time Taken Comments Blood Pressure 112/78 04/04/2020 1:35 PM EDT Pulse 65 04/04/2020 1:35 PM EDT Temperature 36.5 ??C (97.7 ??F) 04/04/2020 1:35 PM ED T Respiratory Rate 16 04/04/2020 1:35 PM EDT Oxygen Saturation 99% 04/04/2020 1:35 PM EDT Inhaled Oxygen Concentration - - Weight 57.2 kg (126 lb) 04/04/2020 1:35 PM EDT Height 168.9 cm (5' 6.5 ) 04/04/2020 1:35 PM EDT Body Mass Index 20.03 04/04/2020 1:35 PM EDT Body Mass Index Percentile 46.58% 04/04/2020 1:3 5 PM EDT Growth Chart: [facility] (Girls, 2- 20 Years) documented in this encounter Ordered Prescriptions Prescription Sig Dispense Quantity Refills Last Filled Start Date End Date venlafaxine (EFFEXOR-XR) 37.5 mg Oral Capsule, Sust. Release 24 hrIndications:Gener alized anxiety disorder Take 1 Cap by mouth daily. 30 Cap 2 04/04/2020 07/11/2020 fluticasone propionate (FLONASE) 50 mcg/actuation Nasl El[place], SuspensionIndicatio ns:Seasonal allergic rhinitis due to pollen 1 Elmore by Nasal route daily. 1 Bottle 2 04/04/2020 10/17/2020 documented in this encounter Progress Notes * William Fonseca MD - 04/04/2020 1:40 PM EDT Assessment Diagnoses and all orders for this visit: Generalized anxiety disorder - venlafaxine (EFFEXOR-XR) 37.5 mg Oral Capsule, Sust. Release 24 hr; Take 1 Cap by mouth daily. Dispense: 30 Cap; Refill: 2 Trial of Effexor for generalized anxiety disorder, will follow for response to this in 2 to 3 weeks. She states that Zoloft made her anxiety symptoms worse and this was discontinued. Seasonal allergic rhinitis due to pollen - fluticasone propionate (FLONASE) 50 mcg/actuation Nasl [place], Suspension; 1 Elmore by Nasal route daily. Dispense: 1 Bottle; Refill: 2 Advised to restart her Flonase for her seasonal allergic rhinitis flare. She does have some mild eustachian tube dysfunction on her left side contributing to tinnitus. Tension headache Her headaches today are more tension headache related than migraine. I advised treating these as needed with 400 mg of ibuprofen. I also encouraged adequate hydration, proper sleep, and having her vision checked to rule out any vision abnormalities that may be contributing to her headaches. Progress Note: Vitals: 04/04/20 1335 BP: 112/78 Pulse: 65 Resp: 16 Temp: 97.7 ??F (36.5 ??C) TempSrc: Temporal SpO2: 99% Weight: 126 lb (57.2 kg) Height: 5' 6.5 (1.689 m) SUBJECTIVE: Chief Complaint Patient presents with ??? Migraine ??? Chest Pain for 3 days HPI: Anxiety: She has a previous history of generalized anxiety disorder and panic attacks. She was previously prescribed Zoloft but felt like her anxiety worsened while she was on Zoloft. She states she had more panic attacks and felt like she was more on edge all the time. She has not been compliant with this medication recently. She has not been trialed on other medications for anxiety. She denies any new or recent stressors. Headaches: She has a 1 day history of worsening headaches on the left side of her head. She describes the headaches as pressure-like and sometimes radiate back towards her neck. She denies any photo or phonophobia associated with the headaches. No auras. No prior history of migraine headaches. She is not been to the eye doctor recently. Seasonal allergic rhinitis: She has a history of seasonal allergic rhinitis and typically has flares in the fall. He was prescribed a oral antihistamine which she has been taking however she is no been taking her Flonase as prescribed. She has had worsening ear pressure and nasal congestion for thepast week. She has some ringing in worse ear pressure on the left ear Review of Systems Constitutional: Positive for fatigue. Negative for fever. HENT: Positive for tinnitus. Negative for congestion and sore throat. Cardiovascular: Positive for chest pain. Gastrointestinal: Positive for nausea. Negative for abdominal pain. Neurological: Positive for dizziness and headaches. OBJECTIVE: Physical Exam Constitutional: General: She is not in acute distress. Appearance: She is well-developed. She is not diaphoretic. HENT: Head: Normocephalic and atraumatic. Comments: Collapsed TM on the bones of the inner ear on the left side. No perforation. Right Ear: Tympanic membrane normal. Eyes: Pupils: Pupils are equal, round, and reactive to light. Cardiovascular: Rate and Rhythm: Normal rate and regular rhythm. Pulmonary: Effort: Pulmonary effort is normal. Breath sounds: Normal breath sounds. No wheezing. Skin: Findings: No rash. Neurological: General: No focal deficit present. Mental Status: She is alert and oriented to person, place, and time. Mental status is at baseline. Cranial Nerves: No cranial nerve deficit. Gait: Gait normal. Psychiatric: Behavior: Behavior normal. Thought Content: Thought content normal. Judgment: Judgment normal. documented in this encounter Plan of Treatment Not on file documented as of this encounter Goals Goal Patient Goal Type Associated Problems Recent Progress Patient-Stated? Author Stay Tobacco Free Lifestyle No Shakira Light CCMA documented as of this encounter Visit Diagnoses Diagnosis Generalized anxiety disorder- Primary Seasonal allergic rhinitis due to pollen Tension headache documented in this encounter Discontinued Medications Medication Sig Discontinue Reason Start Date End Da te amoxicillin (AMOXIL) 500 mg Oral CapsuleIndications:Rhinos inusitis Two caps by mouth twice a day for ten days Cancelled by 03/24/2020 04/04/2020 fluticasone propionate (FLONASE) 50 mcg/actuation Nasl Elmore, SuspensionIndications:Rhi nosinusitis 1 [place] by Nasal route daily. Reorder 03/24/2020 04/04/2020 traZODone (DESYREL) 50 mg Oral Tablet Take 50 mg by mouth nightly. Cancelled by 04/04/2020 sertraline (ZOLOFT) 50 mg Oral Tablet Take 50 mg by mouth daily. Cancelled by 04/04/2020 documented as of this encounter Care Teams Watershed Program Manager Relationship Specialty Start Date End Date Maryann Figueroa APRN [address] [place], [place] [address] PCP - General Nurse Practitioner-Family 05/21/17 documented as of this encounter
--- OUTSIDE RECORDS SUMMARY | 2024-05-13 22:29 | XMS_ITS | Encounter Summary ---
Author Organization [place] [address] Care Team Providers Care Dry Cell And Battery Assembler Name Role Phone Maryann Figueroa APRN Primary Care Provider [phone] Reason for Visit * Reason Comments Medication Refill Encounter Details Date Type Department Care Team (Late st Contact Info) Description 01/17/2022 Refill [facility] [address] [place] [id number] Maryann Figueroa APRN [address] [place] [address] Medication Refill Social History Tobacco Use [...] Exposure Response Date Recorded In the last 10 days, have yo u been in contact with someone who was confirmed or suspected to have Coronavirus/COVID-19? No / Unsure 01/03/2022 11:36 AM EDT documented as of this encounter Ordered Prescriptions Prescription Sig Dispense Quantity Refills Last Filled Start Date End Date loratadine (CLARITIN) 10 mg Oral TabletIndications: Acute middle ear effusion, left,Seasonal allergic rhinitis due to pollen Take 1 Tablet by mouth daily. 30 Tablet 2 01/17/2022 04/06/2022 documented in this encounter Plan of Treatment [...] pollen Take 1 Tablet by mouth daily. 08/29/2021 01/17/2022 documented as of this encounter Care Teams Dry Cell And Battery Assembler Relationship Specialty Start Date End Date Maryann Figueroa APRN [address] [place], [place] [address] PCP - General Nurse Practitioner-Family 05/21/17 documented as of this encounter
--- OUTSIDE RECORDS SUMMARY | 2024-05-13 22:29 | XMS_ITS | Encounter Summary ---
Author Organization [facility] [place] [address] Care Team Providers Care Dumb Waiter Operator Name Role Phone Maryann Figueroa APRN Primary Care Provider [phone] Encounter Details Date Type Department Care Team (Latest Contact Info) Description 04/07/2020 Travel Social History Tobacco Use Types Packs/Day [...] AM EDT documented as of this encounter Plan of Treatment Not on file documented as of this encounter Goals Goal Patient Goal Type Associated Problems Recent Progress Patient-Stated? Author Stay Tobacco Free Lifestyle No Shakira Light CCMA documented as of this encounter Visit Diagnoses Not on filedocumented in this encounter Care Teams Dumb Waiter Operator Relationship Specialty Start Date End Date Maryann Figueroa APRN [address] [place] [address] PCP - General Nurse Practitioner-Family 05/21/17 documented as of this encounter
--- OUTSIDE RECORDS SUMMARY | 2024-05-13 22:29 | XMS_ITS | Encounter Summary ---
Author Organization [place] [address] Care Team Providers Care Political Researcher Name Role Phone Maryann Figueroa LANOLIN PLANT OPERATOR Primary Care Provider [phone] Reason for Visit * Reason Comments Otalgia Left ear started sepideh ting last night had a lot of pain , now pt sts that it is very muffled. Sore on the left side of neck feeling stuffy. Encounter Details Date Type Department Care Team (Late st Contact Info) Description 01/22/2022 4:20 PM EDT Office Visit [facility] [place] [facility] [place] [address] Derrick Alexander MD [address] [facility] [place] [address] Acute otitis media with effusion of [...] Sign Reading Time Taken Comments Blood Pressure 110/60 01/22/2022 4:17 PM EDT Pulse 72 01/22/2022 4:17 PM EDT Temperature 36.9 ??C (98.4 ??F) 01/22/2022 4:17 PM ED T Respiratory Rate 18 01/22/2022 4:17 PM EDT Oxygen Saturation 98% 01/22/2022 4:17 PM EDT Inhaled Oxygen Concentration - - Weight 56.2 kg (124 lb) 01/22/2022 4:17 PM EDT Height - - Body Mass Index - - documented in this encounter Ordered Prescriptions Prescription Sig Dispense Quantity Refills Last Filled Start Date End Date predniSONE (DELTASONE) 20 mg Oral Tablet Take 1 Tablet by mouth daily for 7 days. 7 Tablet 01/22/2022 2 azithromycin (ZITHROMAX) 250 mg Oral Tablet Take 2 tablets (500 mg) on Day 1, followed by 1 tablet (250 mg) once daily on Days 2 through 5. 6 Tablet 01/22/2022 2 documented in this encounter Progress Notes * Derrick Alexander MD - 01/22/2022 4:20 PM EDT Vitals: 01/22/22 1617 BP: 110/60 Pulse: 72 Resp: 18 Temp: 98.4 ??F (36.9 ??C) TempSrc: Oral SpO2: 98% Weight: 124 lb (56.2 kg) SUBJECTIVE: Chief Complaint Patient presents with ??? Otalgia Left ear started hurting last night had a lot of pain , now pt sts that it is very muffled. Sore onthe left side of neck feeling stuffy. HPI: Left ear pain and decreased hearing since last night. Associated with sinus pressure and sore throat. O/w does not feel sick. Denies loud nose exposure. Review of Systems Constitutional: Negative for chills and fever. HENT: Positive for ear pain, sinus pressure, sinus pain and sore throat. Negative for congestion and ear discharge. Respiratory: Negative for cough, chest tightness and shortness of breath. Cardiovascular: Negative for chest pain and palpitations. Gastrointestinal: Negative for abdominal pain, nausea and vomiting. Neurological: Negative for dizziness and headaches. OBJECTIVE: Physical Exam NAD PERRL EOMI Cobblestoning Left TM injected, bulging, with effusion Nasal congestion CTA B RR no murmur ABD soft nontender non distended No C/C/E Non focal neuro exam Assessment Diagnoses and all orders for this visit: Acute otitis media with effusion of left ear Other orders - azithromycin (ZITHROMAX) 250 mg Oral Tablet; Take 2 tablets (500 mg) on Day 1, followed by 1 tablet (250 mg) once daily on Days 2 through 5. Dispense: 6 Tablet; Refill: 0 - predniSONE (DELTASONE) 20 mg Oral Tablet; Take 1 Tablet by mouth daily for 7 days. Dispense: 7 Tablet; Refill: 0 decongestant, antihistamine, warm compresses documented in this encounter Plan of Treatment [...] Primary documented in this encounter Care Teams Political Researcher Relationship Specialty Start Date End Date Maryann Figueroa APRN [address] [place], [place] [address] PCP - General Nurse Practitioner-Family 05/21/17 documented as of this encounter
--- OUTSIDE RECORDS SUMMARY | 2024-05-13 22:29 | XMS_ITS | Encounter Summary ---
Author Organization [facility] [address] Care Team Providers Care Nut Sifter Name Role Phone Maryann Figueroa APRN Primary Care Provider [phone] Encounter Details Date Type Department Care Team (Latest Contact Info) Description 08/01/2020 Travel Social History Tobacco Use Types Packs/Day [...] have Coronavirus / COVID-19? No / Unsure 08/01/2020 11:38 AM EST documented as of this encounter Plan of Treatment Not on file documented as of this encounter Goals Goal Patient Goal Type Associated Problems Recent Progress Patient-Stated? Author Stay Tobacco Free Lifestyle No Shakira Light CCMA documented as of this encounter Visit Diagnoses Not on filedocumented in this encounter Care Teams Nut Sifter Relationship Specialty Start Date End Date Maryann Figueroa APRN [address] [place] [address] PCP - General Nurse Practitioner-Family 05/21/17 documented as of this encounter
--- OUTSIDE RECORDS SUMMARY | 2024-05-13 22:29 | XMS_ITS | Encounter Summary ---
Author Organization [facility] Address [address] [facility] [address] [place] [address] Care Team Providers Care Poke In Name Role Phone Maryann Figueroa APRN Primary Care Provider [phone] Reason for Referral * Allergy Testing (Routine) - Closed Specialty Diagnoses / Procedures Referred By Cesar t Referred To Contact Allergy Diagnoses Eustachian tube dysfunction, right Procedures ENT[facility] ALLERGY ORDER Maxime Sinha MD [address] [facility] [address] [place] [address] Phone: tel: fax: [facility] Ancillary Allergy [address] [place] [address] Phone: tel: fax: Referral ID Status Reason Start Date Expiration Date Visits Re quested Visits Authorized [id number] Closed 01/03/2022 01/03/2023 1 1 * (Routine) - Closed Specialty Diagnoses / Procedures Referred By Cesar t Referred To Contact Diagnoses Tinnitus, bilateral Procedures [facility] AUDIOLOGIC ASSESSMENT Maxime Sinha MD [address] [facility] [address] [place] [address] Phone: tel: fax: Referral ID Status Reason Start Date Expiration Date Visits Re quested Visits Authorized [id number] Closed 01/03/2022 01/03/2023 1 1 Reason for Visit * Reason Comments Otalgia * Consultation (Routine) - Closed Specialty Diagnoses / Procedures Referred By Contac t Referred To Contact Otolaryngology Diagnoses Bilateral chronic serous otitis media Heaven Alamo MD Kirchhoff, Todd M, MD [address] [place] [address] [place] [id number] Phone: tel: fax: Referral ID Status Reason Start Date Expiration Date Visits Re quested Visits Authorized [id number] Closed 12/06/2021 12/06/2022 99 99 Encounter Details Date Type Department Care Team (Late st Contact Info) Description 01/03/2022 12:00 PM EDT Office Visit ENT[facility] ENT [facility] [address] [facility] [address] [place] [address] Maxime Sinha MD [address] [facility] [address] [place] [address] Deviated nasal septum (Primary Dx); Tinnitus, bilateral; Impacted cerumen, right ear; Ear pain, bilateral; Conductive hearing loss of left ear with unrestricted hearing of right ear; Eustachian tube dysfunction, right; Temporal mandibular joint disorder Social History Tobacco Use Types Packs/Day Years [...] Sign Reading Time Taken Comments Blood Pressure 113/66 01/01/2022 4:49 PM EDT Pulse 70 01/01/2022 4:49 PM EDT Temperature 36.7 ??C (98 ??F) 01/01/2022 4:49 PM EDT Respiratory Rate - - Oxygen Saturation - - Inhaled Oxygen Concentration - - Weight 56.7 kg (125 lb) 01/01/2022 4:49 PM EDT Height 166.4 cm (5' 5.5 ) 01/01/2022 4:49 PM EDT Body Mass Index 20.48 01/01/2022 4:49 PM EDT Body Mass Index Percentile 42.14% 01/01/2022 4:4 9 PM EDT Growth Chart: [facility] (Girls, 2- 20 Years) documented in this encounter Progress Notes * Maxime Sinha MD - 01/03/2022 12:00 PM EDT Images from the original note were not included. Minda Dawit Kumar 2005 16 y.o. female 01/03/2022 New ENT Patient-Pediatric or Adult Maxime Sinha MD, ENT ENT [facility] Referring Provider: Heaven Alamo * Chief Complaint Patient presents with ??? Otalgia HPI Minda Kumar is a 16 y.o. female who is being seen in consultation at the request of Heaven Alamo * for ear pain.Patient states symptoms started years ago. Right ear: pain, pressure, decreased hearing, tinnitus, ear popping/cracking Left ear: pain, pressure, decreased hearing, tinnitus, ear popping/cracking Additional symptoms: none; patient is asymptomatic Has the patient ever had ear tubes? yes- not currently in place Does the patient have a history of recurrent ear infections? Yes; intermittent Previous antibiotics include? Ceftin- effective Current antibiotics include? no recent courses Allergy/Sinus medications? Oral Antihistamines: singulair Previous ear drops used? None Current ear drops used? None Has the patient ever perforated a ear drum in the past? yes-more than once; both ears Symptoms are considered getting worse Does the patient have any trouble with anesthesia? no Is there a family history of: Trouble with anesthesia? no Malignant Hyperthermia (high fever due to anesthesia)? no Pseudo cholinesterase deficiency (enzyme deficiency/very long time to wake from anesthesia)? no COVID-19 screening questions: Has the patient tested positive for COVID-19 or experienced any of the following symptoms in the last 2 weeks: Fever; cough; shortness of breath; loss in sense of smell or taste; pink eye; sore throat; body aches; nausea, vomiting; or diarrhea? no Any Travel outside of the [place] in the last 12 months? no Exposure to anyone with known or suspected of having COVID-19? no Has the patient ever tested positive for COVID-19? If YES, When? No Received COVID-19 vaccination? If YES, which apprentice carpenter (J&J, Moderna, Pfizer, other)? If YES, what date(s) did you receive them? COVID-19 Vaccinations Name Date Pfizer SARS-CoV-2 Vaccine Roly-Sucrose 12+ Years (Casanova Cap) 08/29/2021 , 09/29/2021 I, Dr.Todd Sinha, have personally reviewed all above HPI elements in person and have updated asneeded. Patient's medications, allergies, past medical, surgical, family and social histories were reviewedand updated in this EMR. Positive: ENT; Decreased hearing, Ear pain, Noises in the ear All 14 organ systems reviewed and negative except as above. Exam: Vitals: 01/01/22 1649 Weight: 125 lb (56.7 kg) Height: 5' 5.5 (1.664 m) Body mass index is 20.48 kg/m??. Minda is active and alert and in no acute distress with normal voice and respirations. Otoscopy revealed a portion of wax covering the tympanic membrane which is removed today with no abnormalities of the canals or tympanic membranes on the RIGHT the LEFT he has some mild retraction but no signs of fluid or other abnormalities are noted. Patient was found to have positive TMJ greater on the RIGHT hand side. Nose has some deviation of the septum to the LEFT with some mild congestion but no purulence or other abnormalities are noted. Oral cavity reveals tonsils to be absent no other masses lesions or abnormalities were noted. No purulent postnasal drip. Neck is without any tenderness no masses lesions or abnormalities are noted. Lungs are clear heart regular. Audiogram see above PROCEDURE NOTE: 01/03/2022 Procedure: Ear Microscope Exam Indication: Cerumen right ear Surgeon: Maxime Sinha MD Anesthesia: None EBL: None Correct site procedure and patient confirmed, informed consent obtained. Description of Procedure: The Operating microscope was used to examine each external auditory canal, tympanic membrane and middle ear structures. Findings: Right Sided Findings: EAC: Patent with healthy epithelia, no inflammation cerumen removed under the microscpe TM: Intact, translucent MIDDLE EAR: Apparently aerated, visible ossicular structres include handle of malleus and incudostapedial joint which appeared to be intact. Left Side Findings: EAC: Patent with healthy epithelia, no inflammation TM: Intact, translucent MIDDLE EAR: Apparently aerated, visible ossicular structres include handle of malleus and incudostapedial joint which appeared to be intact. Patient tolerated the procedure well. Assessment and Plan: Minda was seen today for otalgia. Diagnoses and all orders for this visit: Deviated nasal septum Tinnitus, bilateral - ENTAS AUDIOLOGIC ASSESSMENT Impacted cerumen, right ear - KS EAR MICROSCOPY EXAMINATION Ear pain, bilateral Conductive hearing loss of left ear with unrestricted hearing of right ear Eustachian tube dysfunction, right - ENTAS ALLERGY ORDER Temporal mandibular joint disorder Minda presents with pain and discomfort to her ears but also the history of possibly having serous effusions. She is found to have pain and discomfort more to her temporal mandibular joints than in herear and her audiogram reveals her hearing to be within normal limits with no other abnormalities. She does have some retraction of her tympanic membranes going along with eustachian tube dysfunction secondary to ALLERGIES and possibly to her excessive smoking. We discussed this with the family and reviewed ALLERGY management and the need to stop smoking. Concerning the patient's ear pain I feel that this is related to her TMJ disease and we discussed conservative management for TMJ for possibly proceeding with evaluation at the TMJ clinic.she will follow-up with me in the next few months if not improving. No follow-ups on file. [facility] [address] [facility] [address] This note may have been partially dictated using bluebottle[employer] voice recognition software and may contain unintended error. * Kristine Zafar Au.D CCC-A - 01/03/2022 12:00 PM EDT Images from the original note were not included. [facility] AUDIOLOGY AUDIOMETRIC EVALUATION Review of chart: Minda's chief complaint, current history, medication list, and reason for referral was reviewed from the patient???s electronic medical record, history form, and verbal inquiry of the patient. The patient reports ear pain/pressure. Decreased hearing and tinnitus. Audiogram Results: Audiogram reveals a conductive hearing loss in the left ear only. The degree of loss is: RIGHT: Within normal limits LEFT: Mild rising to within normal limits Summary of Speech Results: WDS is excellent. Middle Ear Impedance Studies: Flat with large volume Ad; Negative middle ear pressure and normal compliance As. Recommendations include: Per Maxime Sinha MD IMPRESSION: Left conductive loss documented in this encounter Miscellaneous Notes * Patient Instructions - Karla Khalil CMA - 01/03/2022 12:00 PM EDT Images from the original note were not included. Temporo-Mandibular Joint (TMJ) What Is TMJ? You may not have heard of it, but you use it hundreds of times every day. It is the Temporo-Mandibular Joint (TMJ), the joint where the mandible (the lower jaw) joins the temporal bone of the skull, immediately in front of the ear on each side of your head. A small disc of cartilage separates the bones, much like in the knee joint, so that the mandible may slide easily; each time you chew you move it. But you also move it every time you talk and each time you swallow (every three minutes or so). It is, therefore, one of the most frequently used of all joints of the body and one of the most complex. You can locate this joint by putting your finger on the triangular structure in front of your ear. Then move your finger just slightly forward and press firmly while you open your jaw all the way andshut it. The motion you feel is the TMJ. You can also feel the joint motion in your ear canal. These maneuvers can cause considerable discomfort to a patient who is having TMJ trouble, and physicians use these maneuvers with patients for diagnosis. How Does the TMJ Work? When you bite down hard, you put force on the object between your teeth and on the joint. In terms of physics, the jaw is the lever and the TMJ is the fulcrum. Actually, more force is applied (per square foot) to the joint surface than to whatever is between your teeth. To accommodate such forces and to prevent too much wear and tear, the cartilage between the mandible and skull normally providesa smooth surface, over which the joint can freely slide with minimal friction. Therefore, the forces of chewing can be distributed over a wider surface in the joint space and minimize the risk of injury. In addition, several muscles contribute to opening and closing the jaw and aid in the function of the TMJ. Symptoms: Ear pain Sore jaw muscles [place]/cheek pain Jaw popping/clicking Locking of the jaw Difficulty in opening the mouth fully Frequent head/neck aches How Does TMJ Dysfunction Feel? The pain may be sharp and searing, occurring each time you swallow, yawn, talk, or chew, or it may be dull and constant. It hurts over the joint, immediately in front of the ear, but pain can also radiate elsewhere. It often causes spasms in the adjacent muscles that are attached to the bones of the skull, face, and jaws. Then, pain can be felt at the side of the head (the lutheran), the cheek, thelower jaw, and the teeth. A very common focus of pain is in the ear. Many patients come to the research project coordinator quite convinced their pain is from an ear infection. When the earache is not associated with a hearing loss and the eardrum looks normal, the doctor will consider the possibility that the pain comes from a TMJ dysfunction. There are a few other symptoms besides pain that TMJ dysfunction can cause. It can make popping, clicking, or grinding sounds when the jaws are opened widely. Or the jaw locks wide open (dislocated).At the other extreme, TMJ dysfunction can prevent the jaws from fully opening. Some people get ringing in their ears from TMJ trouble. How Can Things Go Wrong with the TMJ? In most patients, pain associated with the TMJ is a result of displacement of the cartilage disc that causes pressure and stretching of the associated sensory nerves. The popping or clicking occurs when the disk snaps into place when the jaw moves. In addition, the chewing muscles may spasm, not function efficiently, and cause pain and tenderness. Both major and minor trauma to the jaw can significantly contribute to the development of TMJ problems. If you habitually clench, grit, or grind yourteeth, you increase the wear on the cartilage lining of the joint, and it doesn't have a chance to recover. Many persons are unaware that they grind their teeth, unless someone tells them so. Chewinggum much of the day can cause similar problems. Stress and other psychological factors have also been implicated as contributory factors to TMJ dysfunction. Other causes include teeth that do not fittogether properly (improper bite), malpositioned jaws, and arthritis. In certain cases, chronic malposition of the cartilage disc and persistent wear in the cartilage lining of the joint space can cause further damage. What Can Be Done? Because TMJ symptoms often develop in the head and neck, otolaryngologists are appropriately qualified to diagnose TMJ problems. Proper diagnosis of TMJ begins with a detailed history and physical, including careful assessment of the teeth occlusion and function of the jaw joints and muscles. If the doctor diagnoses your case early, it will probably respond to these simple, self-remedies: Rest the muscles and joints by eating soft foods. Do not chew gum. Avoid clenching or tensing. Relax muscles with moist heat (1/2 hour at least twice daily). In cases of joint injury, ice packs appliedsoon after the injury can help reduce swelling. Relaxation techniques and stress reduction, patienteducation, non-steroidal anti-inflammatory drugs, muscle relaxants or other medications may be indicated in a dose your doctor recommends. Other therapies may include fabrication of an occlusal splint to prevent wear and tear on the joint. Improving the alignment of the upper and lower teeth and surgical options are available for advanced cases. After diagnosis, your wet room supervisor may suggest further consultation with your dentist and oral surgeon to facilitate effective management of TMJ dysfunction. Modified Quantitative Testing (MQT) Modified Quantitative Testing is a method of testing the skin to determine the presence of allergicdisease. Small amounts of allergen extracts are applied to the skin with a Multi-Test device. Afterwaiting twenty minutes, the skin is examined for a reaction. Depending on the reaction, a small amount of a different dilution will be applied to the skin intradermally. Once your skin reacts positively or negatively to a particular allergen(s), the test is complete. You will be tested for the mostcommon inhaled allergens in the area. E.g., pollens, molds, dust mites, etc. This test does not include foods. Your testing should take about 1-1 1/2 hour(s) to complete. No eating, drinking, or smoking is allowed during your test. You may however eat or drink anything you would like before the test is started. Also, before performing the allergy test, we may perform a spirometry test (common breathing test) to make sure that you are not having any chest congestion or any other pulmonary issues that would require postponing the allergy testing. Because this test requires a reaction of the skin, there are certain medications that must be discontinued prior to these tests. These medications may interfere with the skin's ability to react. Please read the following page carefully for a list of these medications, along with your appointment time. If you have been diagnosed with Dermatographia, please notify your physician or the Allergy department prior to scheduling your allergy test. You will be contacted by the Allergy department to schedule your testing. If you do not hear from the Allergy department in 3 days, please call them at the numbers listed below. Please feel free to call with any questions regarding the tests or the list of medication that you should avoid on the next page. Please tell your doctor and / or the allergy surface lay out technician if you are or attempting to get at this time. Allergy testing will not be performed if there is a chance of . Before discontinuing any medications, check with the doctor who prescribed them for you. Please notify your [facility] physician or the allergy surface lay out technician if you are taking any heart or blood pressure medication. Medications to discontinue 3 days (72) prior to Allergy Testing Antihistamines: Common examples include: Actifed, Astelin nasal spray, Astepro nasal spray, Patanase nasal spray, Comtrex, Sine-Aid, Drixoral, Brisa-[place] Plus, Benadryl, Rachel, Zyrtec,Xyzal, Tagamet, Zantac, Tylenol PM and nighttime sleep aids Cough Medications: Those which contain antihistamines such as Phenergan, Robitussin, Vicks Formula 44 Cough Mixture, Nyquil, and some cough drops Short Acting Benzodiazepines: Xanax (alprazolam) Medications to discontinue 1 week prior to Allergy Testing Sleeping Medications: Common examples include [id number] sleep remedies such as Sominex, Sleep-bryson and Unisom Some common prescription remedies are Seroquel, Ambien and Trazodone Dizzy Medications: Common examples include Antivert (Meclizine). Benzodiazepines: clonazepam, diazepam, lorazepam and midazolam Antihistamines: Claritin (D), Clarinex, Alavert and Loratadine Herbal Supplements: Check with the Allergy Department Medications to discontinue 2 weeks prior to Allergy Testing Anxiety Medications: Common examples include Vistaril or Atarax. Tricyclic Antidepressants: Common examples include Elavil, Sinequan, Norpramin or Tofranil. Steroids - Oral and/or Injectable: Please inform the curator medical museum if you have had any type of oral or injectable steroid in the past month. Please Note: These are only some common examples of medications given in these categories. If you have any questions regarding medications that you are taking and whether it belongs in one of these categories, please consult your pharmacist or doctor as to whether eliminating the medication you arecurrently taking will impair your health. Please wear a short sleeve shirt the day of testing. The test will take approximately 1 hour. If you are unable to make it to the office on the day of your testing, please call the office 24 hours in advance to cancel or reschedule. Our allergy department will be contacting you to schedule soon. We encourage you to contact your insurance company for benefits. You may need to provide the following CPT codes to your insurance company: Allergy testing codes used for billing include: 80995 - Prick Test (up to 35) 48663 - Intradermal Test (up to 35) 58889 - Spirometry without bronchodilator 57455 - Pre and Post Spirometry (This only applies to patients with asthma) If your physician recommends allergy injections, the following codes are commonly used for billin - Single Shot (1 vial) 60993 - Multiple Shot (2-3 vials) 16502 - Vial prep (# of units) If it is determined that spirometry is required for allergy testing, COVID testing will be required. For your convenience, [facility] offers COVID testing at our [facility] and will be scheduled for you when your allergy testing appointment is scheduled. If you opt to proceed with COVID testing elsewhere, please note the test must be a PCR test and within 72 hours of allergy testing. Please check with your testing facility to ensure they offer PCR testing and results available within 72 hours, as rapid tests are not able to be accepted. documented in this encounter Plan of Treatment Scheduled Orders Name Type Priority Associated Diagnoses Orde r Schedule KS EAR MICROSCOPY EXAMINATION KS Charge Routine Impacted cerumen, right ear Ordered: 01/03/2022 documented as of this encounter Goals Goal Patient Goal Type Associated Problems Recent Progress Patient-Stated? Author Maintain a healthy diet, exercise regularly and maintain an ideal body weight General No Tyra Ferreira CCMA Stay Tobacco Free Lifestyle No Shakira Light CCMA documented as of this encounter Visit Diagnoses Diagnosis Deviated nasal septum- Primary Tinnitus, bilateral Unspecified tinnitus Impacted cerumen, right ear Ear pain, bilateral Conductive hearing loss of left ear with unrestricted hearing of right ear Eustachian tube dysfunction, right Temporal mandibular joint disorder Temporomandibular joint disorders, unspecified documented in this encounter Orders Nursing Count Last Ordered Date First Orde red Date ENT[facility] ALLERGY ORDER 1 01/03/2022 ENTAS AUDIOLOGIC ASSESSMENT 1 01/03/2022 documented in this encounter Care Teams Poke In Relationship Specialty Start Date End Date Maryann Figueroa APRN [address] [place] [id number] PCP - General Nurse Practitioner-Family 05/21/17 documented as of this encounter
--- OUTSIDE RECORDS SUMMARY | 2024-05-13 22:29 | XMS_ITS | Encounter Summary ---
Author Organization [facility] [place] [address] Care Team Providers Care Contact Worker Name Role Phone Maryann Figueroa APRN Primary Care Provider [phone] Reason for Visit * Reason Comments Congestion Encounter Details Date Type Department Care Team (Late st Contact Info) Description 11/01/2021 5:15 PM EDT Telemedicine SEP Tahir [facility] [address] Derrick Alexander MD [address] [place] [address] Acute bronchitis, unspecified organism (Primary Dx); Tobacco abuse Social History Tobacco Use Types Packs/Day Years [...] mouth daily for 7 days. 7 Tablet 11/01/2021 2 azithromycin (ZITHROMAX) 250 mg Oral Tablet Take 2 tablets (500 mg) on Day 1, followed by 1 tablet (250 mg) once daily on Days 2 through 5. 6 Tablet 11/01/2021 2 documented in this encounter Progress Notes * Derrick Alexander MD - 11/01/2021 5:15 PM EDT There were no vitals filed for this visit. Minda Kumar is a 16 y.o. female Patient presented today for routine care follow-up through a video visit. Patient has reviewed the terms and conditions of service as part of the registration for today's visit. A video visit does not replace a [id number] exam and further services may be necessary. We are conducting her video visit in a private space and this video visit is being conducted in accordance with [facility] telehealth/video visit regulations. SUBJECTIVE: Chief Complaint Patient presents with ??? Congestion HPI: 5 day hx of wheezing, cough, and nasal congestions. Denies fever. Review of Systems Denies n/v/d. OBJECTIVE: Physical Exam Constitutional: NAD, appropriately groomed. Appears comfortable. HENT: [...] and all orders for this visit: Acute bronchitis, unspecified organism Tobacco abuse Comments: stop Other orders - azithromycin (ZITHROMAX) 250 mg [...] of this encounter Visit Diagnoses Diagnosis Acute bronchitis, unspecified organism- Primary Tobacco abuse Tobacco use disorder documented in this encounter Care Teams Contact Worker Relationship Specialty Start Date End Date Maryann Figueroa APRN [address] [place] [address] PCP - General Nurse Practitioner-Family 05/21/17 documented as of this encounter
--- OUTSIDE RECORDS SUMMARY | 2024-05-13 22:29 | XMS_ITS | Encounter Summary ---
Author Organization [facility] [place] [address] Care Team Providers Care Family Literacy Coordinator Name Role Phone Maryann Figueroa APRN Primary Care Provider [phone] Reason for Visit * Reason Onset Date Comments Medication Management 10/17/2020 Encounter Details Date Type Department Care Team (Late st Contact Info) Description 10/17/2020 Telephone SEP Tahir [address] [place] [address] Maryann Figueroa APRN [address] [place] [address] Medication Management Social History Tobacco Use Types Packs/Day Years [...] Refills Last Filled Start Date End Date fluticasone propionate (FLONASE) 50 mcg/actuation Nasl [place], SuspensionIndicati ons:Seasonal allergic rhinitis due to pollen 2 Sprays by Nasal route daily. 3 Bottle 2 10/17/2020 08/29/2021 documented in this encounter Miscellaneous Notes * Telephone Encounter - Tyra Ferreira CCMA - 10/17/2020 9:48 AM EDT Done * Telephone Encounter - Claire Vora RMA - 10/17/2020 9:45 AM EDT Pt states that she has been using her flonase 2 sprays per nostril daily. Can she get the rx changed and [facility]. Thank you documented in this encounter Plan of Treatment Not on file documented as of this encounter Goals Goal Patient Goal Type Associated Problems Recent Progress Patient-Stated? Author Stay Tobacco Free Lifestyle No Shakira Light CCMA documented as of this encounter Visit Diagnoses Diagnosis Seasonal allergic rhinitis due to pollen documented in this encounter Discontinued Medications Medication Sig Discontinue Reason Start Date End Da te fluticasone propionate (FLONASE) 50 mcg/actuation Nasl [place], SuspensionIndications:Sea ana allergic rhinitis due to pollen 1 [place] by Nasal route daily. Reorder 04/04/2020 10/17/2020 documented as of this encounter Care Teams Family Literacy Coordinator Relationship Specialty Start Date End Date Carolina, Maryann, FLOOR MECHANIC [address] [place], [place] [address] PCP - General Nurse Practitioner-Family 05/21/17 documented as of this encounter
--- OUTSIDE RECORDS SUMMARY | 2024-05-13 22:29 | XMS_ITS | Encounter Summary ---
Author Organization [facility] [place] [address] Care Team Providers Care Streetcar Repairer Helper Name Role Phone Maryann Figueroa APRN Primary Care Provider [phone] Reason for Visit * Reason Comments Abdominal Pain Chest Pain Tinnitus since saturday Encounter Details Date Type Department Care Team (Late st Contact Info) Description 04/07/2020 10:50 AM EDT Office Visit SEP [place] [address] [address] Ketan Fonseca MD [address] [place] [address] Pleuritic chest pain (Primary Dx); Yeast dermatitis; Acute bronchitis, unspecified organism; Major depressive disorder, recurrent episode, mild (HCC) [...] Sign Reading Time Taken Comments Blood Pressure 116/68 04/07/2020 11:04 AM EDT Pulse 88 04/07/2020 11:04 AM EDT Temperature 36.7 ??C (98 ??F) 04/07/2020 11:04 AM EDT Respiratory Rate 18 04/07/2020 11:04 AM EDT Oxygen Saturation 98% 04/07/2020 11:04 AM EDT Inhaled Oxygen Concentration - - Weight 55.8 kg (123 lb) 04/07/2020 11:04 AM EDT Height 168.9 cm (5' 6.5 ) 04/07/2020 11:04 AM ED T Body Mass Index 19.56 04/07/2020 11:04 AM EDT Body Mass Index Percentile 39.96% 04/07/2020 11: 04 AM EDT Growth Chart: [facility] (Girls, 2- 20 Years) documented in this encounter Ordered Prescriptions Prescription Sig Dispense Quantity Refills Last Filled Start Date End Date predniSONE (DELTASONE) 10 mg Oral TabletIndications: Pleuritic chest pain Take 1 Tab by mouth 2 times daily for 5 days. 10 Tab 04/07/2020 04/12/2020 amoxicillin-clavul anate (AUGMENTIN) 875-125 mg Oral TabletIndications: Acute bronchitis, unspecified organism Take 1 Tab by mouth every 12 hours for 7 days. 14 Tab 04/07/2020 04/14/2020 fluconazole (DIFLUCAN) 150 mg Oral TabletIndications: Yeast dermatitis 1 tablet now and repeat in one week. 2 Tab 04/07/2020 08/23/2020 documented in this encounter Progress Notes * Ketan Fonseca MD - 04/07/2020 10:50 AM EDT Assessment Diagnoses and all orders for this visit: Pleuritic chest pain - predniSONE (DELTASONE) 10 mg Oral Tablet; Take 1 Tab by mouth 2 times daily for 5 days. Dispense:10 Tab; Refill: 0 Yeast dermatitis - fluconazole (DIFLUCAN) 150 mg Oral Tablet; 1 tablet now and repeat in one week. Dispense: 2 Tab; Refill: 0 Acute bronchitis, unspecified organism - amoxicillin-clavulanate (AUGMENTIN) 875-125 mg Oral Tablet; Take 1 Tab by mouth every 12 hours for 7 days. Dispense: 14 Tab; Refill: 0 Major depressive disorder, recurrent episode, mild (HCC) (Chronic) Overview: On Effexor. Does not want to take medication, encouraged her to give it a 2 week trial. Progress Note: Vitals: 04/07/20 1104 BP: 116/68 Pulse: 88 Resp: 18 Temp: 98 ??F (36.7 ??C) SpO2: 98% Weight: 123 lb (55.8 kg) Height: 5' 6.5 (1.689 m) SUBJECTIVE: Chief Complaint Patient presents with ??? Abdominal Pain ??? Chest Pain ??? Tinnitus since saturday HPI: lower abdominal pain for 'weeks'. Appetite not normal. Some chest pain since the weekend - worse with a deep breath or laying down. Better when sitting up. Extends across entire chest and back. Yeast vaginitis - requesting treatment. Wt Readings from Last 3 Encounters: 04/07/20 123 lb (55.8 kg) (60 %, Z= 0.24)* 04/04/20 126 lb (57.2 kg) (65 %, Z= 0.37)* 03/24/20 130 lb 3.2 oz (59.1 kg) (71 %, Z= 0.55)* * Growth percentiles are based on CDC (Girls, 2-20 Years) data. Review of Systems Constitutional: Positive for appetite change. HENT: Positive for ear pain. Gastrointestinal: Positive for abdominal pain. OBJECTIVE: Physical Exam Vitals signs reviewed. Constitutional: [...] is normal. No respiratory distress. Breath sounds: Examination of the right-middle field reveals wheezing. Wheezing present. No rales. Chest: Chest wall: No tenderness. Abdominal: [...] as of this encounter Visit Diagnoses Diagnosis Pleuritic chest pain- Primary Painful respiration Yeast dermatitis Acute bronchitis, unspecified organism Major depressive disorder, recurrent episode, mild (HCC) Major depressive disorder, recurrent episode, mild documented in this encounter Discontinued Medications Medication Sig Discontinue Reason Start Date End Da te fluconazole (DIFLUCAN) 150 mg Oral TabletIndications:Athlet e's foot, right 1 tablet now and repeat in one week. Reorder 02/23/2020 04/07/2020 norgestimate-ethinyl estradioL (ORTHO-CYCLEN) 0.25-35 mg-mcg Oral TabletIndications:Amenor scott Take 1 Tab by mouth daily. Cancelled by 08/18/2019 04/07/2020 documented as of this encounter Care Teams Streetcar Repairer Helper Relationship Specialty Start Date End Date Maryann Figueroa APRN [address] [place], [place] [address] PCP - General Nurse Practitioner-Family 05/21/17 documented as of this encounter
--- OUTSIDE RECORDS SUMMARY | 2024-05-13 22:29 | XMS_ITS | Encounter Summary ---
Author Organization [facility] [place] [address] Care Team Providers Care Regional Engagement Consultant Name Role Phone Maryann Figueroa APRN Primary Care Provider [phone] Reason for Visit * Reason Comments Medication Refill Encounter Details Date Type Department Care Team (Late st Contact Info) Description 06/08/2021 Refill SEP Tahir [address] [place] [id number] Maryann Figueroa APRN [address] [place], [place] [id number] Medication Refill Social History Tobacco Use Types [...] CAPSULE BY MOUTH DAILY 30 Capsule 2 06/08/2021 2 documented in this encounter Plan of [...] Release(E.C.) TAKE 1 CAPSULE BY MOUTH DAILY 01/30/2021 06/08/2021 documented as of this encounter Care Teams Regional Engagement Consultant Relationship Specialty Start Date End Date Maryann Figueroa APRN [address] [place], [place] [address] PCP - General Nurse Practitioner-Family 05/21/17 documented as of this encounter
--- OUTSIDE RECORDS SUMMARY | 2024-05-13 22:29 | XMS_ITS | Encounter Summary ---
Author Organization [facility] [address] Care Team Providers Care Splunk Consultant Name Role Phone Maryann Figueroa APRN Primary Care Provider [phone] Reason for Visit * Reason Onset Date Comments Symptom Call 06/05/2021 Encounter Details Date Type Department Care Team (Late st Contact Info) Description 06/05/2021 Telephone SEP Tahir [address] [place] [phone] Maryann Figueroa APRN [address] [place], [place] [id number] Symptom Call Social History Tobacco Use Types Packs/Day Years [...] mouth once for 1 dose. 1 Tablet 06/05/2021 06/05/2021 documented in this encounter Miscellaneous Notes * Addendum Note - Terrance Fonseca MD - 06/05/2021 4:54 PM ESTAddended by: TERRANCE FONSECA on: 06/05/2021 04:54 PM Modules accepted: Orders * Telephone Encounter - Terrance Fonseca MD - 06/05/2021 4:54 PM EST Diflucan * Telephone Encounter - Ivy Aldana RMA - 06/05/2021 2:29 PM EST Can we send something in for her ? * Telephone Encounter - Libertad Briones - 06/05/2021 12:11 PM EST Symptoms Call Who is reporting the symptoms: Patient What symptom(s) is the patient experiencing: vaginal itching, white/yellow discharge How long have symptoms been present: 3 day(s) ago Has the patient been seen for this: No, advised to sched a ov Has the patient tried anything to relieve the symptoms and did it help: No If pain, what level on scale 1-10 (10 being the greatest): No Pain Desired Outcome: Rx, something for yeast infection Pharmacy & Location: [facility] - [place] [address] [address] [facility] [phone] Additional Notes: documented in this encounter Plan of Treatment Not on file documented as of this encounter Goals Goal Patient Goal Type Associated Problems Recent Progress Patient-Stated? Author Stay Tobacco Free Lifestyle No Shakira Light CCMA documented as of this encounter Visit Diagnoses Not on filedocumented in this encounter Care Teams Splunk Consultant Relationship Specialty Start Date End Date Maryann Figueroa APRN [address] [place], [place] [address] PCP - General Nurse Practitioner-Family 05/21/17 documented as of this encounter
--- OUTSIDE RECORDS SUMMARY | 2024-05-13 22:29 | XMS_ITS | Encounter Summary ---
Author Organization [facility] [place] [address] Care Team Providers Care Professor Of Biological Sciences Name Role Phone Maryann Figueroa APRN Primary Care Provider [phone] Encounter Details Date Type Department Care Team (Latest Contact Info) Description 03/24/2020 Travel Social History Tobacco Use Types Packs/Day [...] on filedocumented in this encounter Care Teams Professor Of Biological Sciences Relationship Specialty Start Date End Date Maryann Figueroa APRN [address] [place] [address] PCP - General Nurse Practitioner-Family 05/21/17 documented as of this encounter
--- OUTSIDE RECORDS SUMMARY | 2024-05-13 22:29 | XMS_ITS | Encounter Summary ---
Author Organization [place] [place] [address] Care Team Providers Care Weld Inspector Name Role Phone Maryann Figueroa APRN Primary Care Provider [phone] Reason for Visit * Reason Onset Date Comments Symptom Call 10/09/2021 poss yeast infec tion Encounter Details Date Type Department Care Team (Late st Contact Info) Description 10/09/2021 Telephone SEP Tahir [facility] [address] [place] [address] Maryann Figueroa APRN [address] [place] [address] Symptom Call (poss yeast infection) Social History Tobacco Use Types Packs/Day Years [...] mouth once for 1 dose. 1 Tablet 10/09/2021 10/09/2021 documented in this encounter Miscellaneous Notes * Telephone Encounter - Lori Bob - 10/09/2021 1:51 PM EDT Symptoms Call Who is reporting the symptoms: Patient What symptom(s) is the patient experiencing: poss yeast infection, discharge How long have symptoms been present: 1-2 week(s) ago Has the patient been seen for this: No If no, was an appointment/E-Visit offered/suggested? would lke to have meds called in Has the patient tried anything to relieve the symptoms and did it help: No If pain, what level on scale 1-10 (10 being the greatest): No Pain Desired Outcome: Rx, anything to help Pharmacy & Location: [facility] Additional Notes: documented in this encounter Plan [...] on filedocumented in this encounter Care Teams Weld Inspector Relationship Specialty Start Date End Date Maryann Fig[place] [address] [place] [address] PCP - General Nurse Practitioner-Family 05/21/17 documented as of this encounter
--- OUTSIDE RECORDS SUMMARY | 2024-05-13 22:29 | XMS_ITS | Encounter Summary ---
Author Organization [place] [address] Care Team Providers Care Cab Starter Name Role Phone Maryann Figueroa APRN Primary Care Provider [phone] Reason for Visit * Reason Comments Medication Refill Encounter Details Date Type Department Care Team (Late st Contact Info) Description 12/05/2020 Refill SEP Tahir [address] [place] [address] Ketan Fonseca MD [address] [place] [address] Medication Refill Social History Tobacco Use [...] ONE TABLET BY MOUTH ONCE DAILY 30 Tab 2 12/05/2020 04/14/2021 documented in this encounter Plan of Treatment [...] Da te PARoxetine (PAXIL) 10 mg Oral TabletIndications:General ized anxiety disorder Take 1 Tab by mouth daily. 08/23/2020 12/05/2020 documented as of this encounter Care Teams Cab Starter Relationship Specialty Start Date End Date Maryann Figueroa APRN [address] [place], [place] [address] PCP - General Nurse Practitioner-Family 05/21/17 documented as of this encounter
--- OUTSIDE RECORDS SUMMARY | 2024-05-13 22:29 | XMS_ITS | Encounter Summary ---
Author Organization [facility] [place] [address] Care Team Providers Care Securities Supervisor Name Role Phone Maryann Figueroa APRN Primary Care Provider [phone] Encounter Details Date Type Department Care Team (Latest Contact Info) Description 01/03/2022 Travel Social History Tobacco Use Types Packs/Day [...] on filedocumented in this encounter Care Teams Securities Supervisor Relationship Specialty Start Date End Date Maryann Figueroa APRN [address] [place] [address] PCP - General Nurse Practitioner-Family 05/21/17 documented as of this encounter
--- OUTSIDE RECORDS SUMMARY | 2024-05-13 22:29 | XMS_ITS | Encounter Summary ---
Author Organization [facility] [place] [address] Care Team Providers Care Mail Carrier Technician Name Role Phone Maryann Figueroa APRN Primary Care Provider [phone] Encounter Details Date Type Department Care Team (Latest Contact Info) Description 07/11/2020 Travel Social History Tobacco Use Types Packs/Day [...] on filedocumented in this encounter Care Teams Mail Carrier Technician Relationship Specialty Start Date End Date Maryann Figueroa APRN [address] [place] [address] PCP - General Nurse Practitioner-Family 05/21/17 documented as of this encounter
--- OUTSIDE RECORDS SUMMARY | 2024-05-13 22:29 | XMS_ITS | Encounter Summary ---
Author Organization [facility] [place] [address] Care Team Providers Care Information Systems Security Officer Name Role Phone Maryann Figueroa APRN Primary Care Provider [phone] Encounter Details Date Type Department Care Team (Latest Contact Info) Description 04/04/2020 Travel Social History Tobacco Use Types Packs/Day [...] on filedocumented in this encounter Care Teams Information Systems Security Officer Relationship Specialty Start Date End Date Maryann Figueroa APRN [address] [place] [address] PCP - General Nurse Practitioner-Family 05/21/17 documented as of this encounter
--- OUTSIDE RECORDS SUMMARY | 2024-05-13 22:29 | XMS_ITS | Encounter Summary ---
Author Organization [place] [address] Care Team Providers Care School Operations Manager Name Role Phone Maryann Figueroa APRN Primary Care Provider Reason for Visit * Reason Comments Cough productive yellow x3 days Nasal Congestion Facial Pain facial pain and pres sure x3 days Headache x3 days Encounter Details Date Type Department Care Team (Latest Contact Info) Description 03/24/2020 1:40 PM EDT Office Visit SEP Tahir BARILL[facility] [address] [place] [phone] Maryann Figueroa APRN [address] [place] [address] Rhinosinusitis (Primary Dx) Social History Tobacco Use Types [...] Reading Time Taken Comments Blood Pressure 110/60 03/24/2020 1:27 PM EDT Pulse 116 03/24/2020 1:27 PM EDT Temperature 36.2 ??C (97.2 ??F) 03/24/2020 1:27 PM ED T Respiratory Rate 18 03/24/2020 1:27 PM EDT Oxygen Saturation 96% 03/24/2020 1:27 PM EDT Inhaled Oxygen Concentration - - Weight 59.1 kg (130 lb 3.2 oz) 03/24/2020 1:27 P M EDT Height 168.9 cm (5' 6.5 ) 03/24/2020 1:27 PM EDT Body Mass Index 20.7 03/24/2020 1:27 PM EDT Body Mass Index Percentile 55.46% 03/24/2020 1:2 7 PM EDT Growth Chart: [facility] (Girls, 2- 20 Years) documented in this encounter Ordered Prescriptions Prescription Sig Dispense Quantity Refills Last Filled Start Date End Date fluticasone propionate (FLONASE) 50 mcg/actuation Nasl [place], SuspensionIndicatio ns:Rhinosinusitis 1 [place] by Nasal route daily. 1 Bottle 2 03/24/2020 04/04/2020 predniSONE (DELTASONE) 10 mg Oral TabletIndications:R hinosinusitis Take 1 Tab by mouth 2 times daily for 5 days. 10 Tab 03/24/2020 03/29/2020 amoxicillin (AMOXIL) 500 mg Oral CapsuleIndications: Rhinosinusitis Two caps by mouth twice a day for ten days 40 Cap 03/24/2020 04/04/2020 documented in this encounter Progress Notes * Maryann Figueroa APRN - 03/24/2020 1:40 PM EDT Assessment Diagnoses and all orders for this visit: Rhinosinusitis - amoxicillin (AMOXIL) 500 mg Oral Capsule; Two caps by mouth twice a day for ten days Dispense: 40Cap; Refill: 0 - predniSONE (DELTASONE) 10 mg Oral Tablet; Take 1 Tab by mouth 2 times daily for 5 days. Dispense:10 Tab; Refill: 0 - fluticasone propionate (FLONASE) 50 mcg/actuation Nasl [place], Suspension; 1 [place] by Nasal route daily. Dispense: 1 Bottle; Refill: 2 History and exam suggestive of rhinosinusitis secondary to allergic rhinitis. No fever. No additional symptoms concerning for COVID. Medications as prescribed. Recommend that she continue daily Claritin along with Flonase and decongestant. Reviewed home care and symptomatic care with close follow-up as needed for persistent or worsening symptoms. Progress Note: Vitals: 03/24/20 1327 BP: 110/60 Pulse: (!) 116 Resp: 18 Temp: 97.2 ??F (36.2 ??C) TempSrc: Temporal SpO2: 96% Weight: 130 lb 3.2 oz (59.1 kg) Height: 5' 6.5 (1.689 m) SUBJECTIVE: Chief Complaint Patient presents with ??? Cough productive yellow x3 days ??? Nasal Congestion ??? Facial Pain facial pain and pressure x3 days ??? Headache x3 days HPI: Child presents office today with her grandmother for evaluation of nasal congestion drainage, sinuspain and pressure, bilateral ear pain and fullness. Also a sore throat. No fever. Has had a headache. No loss of smell or taste. Has seasonal allergies. She has been taking Claritin and OTC decongestant. Grandmother states that she and the child's uncle has had similar symptoms. There has been no traveling in the family and no known COVID exposure. Review of Systems Constitutional: Positive for fatigue. Negative for fever. HENT: Positive for congestion, ear pain, sinus pressure, sinus pain and sore throat. Respiratory: Negative for cough, shortness of breath and wheezing. Cardiovascular: Negative for chest pain, palpitations and leg swelling. Gastrointestinal: Negative for abdominal pain, constipation, diarrhea and vomiting. Musculoskeletal: Negative for myalgias. Skin: Negative for rash and wound. Allergic/Immunologic: Positive for environmental allergies. Neurological: Positive for headaches. Hematological: Negative for adenopathy. Does not bruise/bleed easily. OBJECTIVE: Physical Exam Constitutional: Appearance: She is well-developed. HENT: Head: Normocephalic and atraumatic. Right Ear: A middle ear effusion is present. Tympanic membrane is erythematous. Left Ear: A middle ear effusion is present. Tympanic membrane is erythematous. Nose: Mucosal edema and congestion present. Mouth/Throat: Pharynx: Posterior oropharyngeal erythema present. Eyes: Pupils: Pupils are equal, round, and reactive to light. Neck: Musculoskeletal: Normal range of motion and neck supple. Thyroid: No thyromegaly. Cardiovascular: Rate and Rhythm: Normal rate and regular rhythm. Heart sounds: Normal heart sounds. No murmur. No friction rub. No gallop. Pulmonary: Effort: Pulmonary effort is normal. Breath sounds: Normal breath sounds. No wheezing or rales. Abdominal: Palpations: Abdomen is soft. Tenderness: There is no abdominal tenderness. There is no guarding or rebound. Musculoskeletal: Comments: Cast on left wrist Lymphadenopathy: Cervical: No cervical adenopathy. Skin: General: [...] Diagnoses Diagnosis Rhinosinusitis- Primary Unspecified sinusitis (chronic) documented in this encounter Discontinued Medications Medication Sig Discontinue Reason Start Date End Da te amoxicillin (AMOXIL) 500 mg Oral CapsuleIndications:Acute bacterial sinusitis,Acute otitis media of both ears in pediatric patient Two caps by mouth twice a day for ten days Reorder 02/16/2019 03/24/2020 documented as of this encounter Care Teams School Operations Manager Relationship Specialty Start Date End Date Maryann Figueroa APRN [address] [place] [address] PCP - General Nurse Practitioner-Family 05/21/17 documented as of this encounter
[2024-05-13 22:30] VITALS: BP 127/82; PULSE 84; O2SAT 97
--- OUTSIDE RECORDS SUMMARY | 2024-05-13 22:30 | XMS_ITS | Encounter Summary ---
Author Organization [place] [address] Care Team Providers Care Pelletizer Tender Name Role Phone Unavailable Primary Care Provider Unavailabl e Encounter Details Date Type Department Care Team (Late st Contact Info) Description 2004 4:53 PM EST - 2004 5:30 PM [facility] Hospital Encounter [facility] 1C Kyle Lewis MD [address] [place] [address] Social History Tobacco Use Types Packs/Day Years [...]
--- OUTSIDE RECORDS SUMMARY | 2024-05-13 22:30 | XMS_ITS | Encounter Summary ---
Author Organization [place] [address] Care Team Providers Care Press Supervisor Name Role Phone Maryann Figueroa AYANNA Primary Care Provider Reason for Visit * Reason Comments Otalgia pt sts that she has right ear pain, pt did sts that the left hurts too but not like the right Cough Congestion Encounter Details Date Type Department Care Team (Late st Contact Info) Description 02/16/2019 4:40 PM EDT Office Visit [facility] [address] [place] [address] Griselda Andrews APRN [address] [place], [place] [id number] Acute bacterial sinusitis (Primary Dx); Acute otitis media of both ears in pediatric patient Social History Tobacco Use Types Packs/Day Years Used Date Smoking Tobacco: Former Cigarettes Q uit: 2016 Smokeless Tobacco: Never Comments:used to smoke 2 cig s/day Alcohol Use Standard Drinks/Week Comments No 0 (1 standard drink = 0.6 oz pur e alcohol) PHQ-2 Answer Date Recorded PHQ-2 Score 0 11/14/2018 Sexually Active Control Partners Comments Never Comments No Sex and Gender Information Value Date Recorded Sex Assigned at Not on file Legal Sex Female 6:55 AM EDT Gender Identity Not on file Sexual Orientation Not on file documented as of this encounter Last Filed Vital Signs Vital Sign Reading Time Taken Comments Blood Pressure 116/80 02/16/2019 4:29 PM EDT Pulse 98 02/16/2019 4:29 PM EDT Temperature 36.6 ??C (97.8 ??F) 02/16/2019 4:29 PM ED T Respiratory Rate 16 02/16/2019 4:29 PM EDT Oxygen Saturation 97% 02/16/2019 4:29 PM EDT Inhaled Oxygen Concentration - - Weight 61.7 kg (136 lb) 02/16/2019 4:29 PM EDT Height 165.1 cm (5' 5 ) 02/16/2019 4:29 PM EDT Body Mass Index 22.63 02/16/2019 4:29 PM EDT Body Mass Index Percentile 79.11% 02/16/2019 4:2 9 PM EDT Growth Chart: [facility] (Girls, 2- 20 Years) documented in this encounter Ordered Prescriptions Prescription Sig Dispense Quantity Refills Last Filled Start Date End Date amoxicillin (AMOXIL) 500 mg Oral CapsuleIndications: Acute bacterial sinusitis,Acute otitis media of both ears in pediatric patient Two caps by mouth twice a day for ten days 40 Cap 02/16/2019 03/24/2020 documented in this encounter Progress Notes * Griselda Andrews ARNP - 02/16/2019 4:40 PM EDT Assessment Diagnoses and all orders for this visit: Acute bacterial sinusitis Comments: symptomatic care Orders: - amoxicillin (AMOXIL) 500 mg Oral Capsule; Two caps by mouth twice a day for ten days Dispense: 40Cap; Refill: 0 Acute otitis media of both ears in pediatric patient Comments: symptomatic care Orders: - amoxicillin (AMOXIL) 500 mg Oral Capsule; Two caps by mouth twice a day for ten days Dispense: 40Cap; Refill: 0 Progress Note: Vitals: 02/16/19 1629 BP: 116/80 Pulse: 98 Resp: 16 Temp: 97.8 ??F (36.6 ??C) TempSrc: Temporal SpO2: 97% Weight: 136 lb (61.7 kg) Height: 5' 5 (1.651 m) SUBJECTIVE: Chief Complaint Patient presents with ??? Otalgia pt sts that she has right ear pain, pt did sts that the left hurts too but not like the right ??? Cough ??? Congestion HPI: here with cough and congestion with bilateral ear pain. No drainage from the ears. Pos for chills but no fever. Right ear worse than left. No meds taken . Can feel PND. Review of Systems HENT: Positive for congestion, ear pain, rhinorrhea, sinus pressure and sinus pain. Respiratory: Positive for cough. Neurological: Positive for headaches. Negative for dizziness. OBJECTIVE: Physical Exam Constitutional: No acute distress. Nasally sounding. Appears mildly ill Head: normocephalic and atraumatic, pos sinus pressure Ears. TM's red dull and full. Mouth: Pos erythema with PND present. No tonsillar exudate, clear PND Eyes: No discharge or injection. Neck: supple with normal ROM. No neck pain. Pos ant cervical LA, tender CV: RRR, no murmur, gallop or rub Resp: Clear anterior and posterior. No rales, wheezes or rhonchi Abdomen: soft and non tender Skin: No rashes or lesions, warm and dry Neuro: CN grossly intact Psy: Normal affect and mood. documented in this encounter Miscellaneous Notes * Patient Instructions - Griselda Andrews ARNP - 02/16/2019 4:40 PM EDT Images from the original note were not included. Patient Education Sinusitis, Pediatric Sinusitis is soreness and inflammation of the sinuses. Sinuses are hollow spaces in the bones around the face. The sinuses are located: ?? Around your child's eyes. ?? In the middle of your child's forehead. ?? Behind your child's nose. ?? In your child's cheekbones. Sinuses and nasal passages are lined with stringy fluid (mucus). Mucus normally drains out of the sinuses. When nasal tissues become inflamed or swollen, mucus can become trapped or blocked. Blocked or trapped mucus makes it difficult for air to flow through the sinuses. This allows bacteria, viruses, and funguses to grow, which leads to infection. Most infections of the sinuses are caused by a virus. Young children are more likely to develop infections of the nose, sinus, and ears because their sinuses are small and not fully formed until their teen years. Sinusitis can develop quickly. It can last for 7?10 days (acute) or for more than 12 weeks (chronic). What are the causes? This condition is caused by anything that creates swelling in the sinuses or stops mucus from draining, including: ?? Allergies. ?? Asthma. ?? A common cold or viral infection. ?? A bacterial infection. ?? A foreign object stuck in the nose, such as a peanut or raisin. ?? Pollutants, such as chemicals or irritants in the air. ?? Abnormal growths in the nose (nasal polyps). ?? Abnormally shaped bones between the nasal passages. ?? Enlarged tissues behind the nose (adenoids). ?? A fungal infection. This is rare. What increases the risk? The following factors may make your child more likely to develop this condition: ?? Having: ? Allergies or asthma. ? A weak immune system. ? Structural deformities or blockages in the nose or sinuses. ? A recent cold or respiratory infection. ?? Attending daycare. ?? Drinking fluids while lying down. ?? Using a pacifier. ?? Being around secondhand smoke. ?? Doing a lot of swimming or diving. What are the signs or symptoms? The main symptoms of this condition are pain and a feeling of pressure around the affected sinuses.Other symptoms include: ?? Upper toothache. ?? Earache. ?? Headache, if your child is older. ?? Bad breath. ?? Decreased sense of smell and taste. ?? A cough that gets worse at night. ?? Fatigue or lack of energy. ?? Fever. ?? Thick drainage from the nose that is often green and may contain pus (purulent). ?? Swelling and warmth over the affected sinuses. ?? Swelling and redness around the eyes. ?? Vomiting. ?? Crankiness or irritability. ?? Sensitivity to light. ?? Sore throat. How is this diagnosed? This condition is diagnosed based on symptoms, a medical history, and a physical exam. To find out if your child's condition is acute or chronic, your child's health care provider may: ?? Look in your child's nose for signs of nasal polyps. ?? Tap over the affected sinus to check for signs of infection. ?? View the inside of your child's sinuses using an imaging device that has a light attached (endoscope). If your child's health care provider suspects chronic sinusitis, your child also may: ?? Be tested for allergies. ?? Have a sample of mucus taken from the nose (nasal culture) and checked for bacteria. ?? Have a mucus sample taken from the nose and examined to see if the sinusitis is related to an allergy. Your child may also have an MRI or CT scan to give the child's healthcare provider a more detailed picture of the child's sinuses and adenoids. How is this treated? Treatment depends on the cause of your child's sinusitis and whether it is chronic or acute. If a virus is causing the sinusitis, your child's symptoms will go away on their own within 10 days. Your child may be given medicines to help with symptoms. Medicines may include: ?? Nasal saline washes to help get rid of thick mucus in the child's nose. ?? A topical nasal corticosteroid to ease inflammation and swelling. ?? Antihistamines, if swelling and inflammation continue. If your child's condition is caused by bacteria, your child's health care provider may recommend waiting to see if symptoms improve. Most bacterial infections will get better without antibiotic medicine. If your child has a severe infection or a weak immune system, he or she may be prescribed antibi otics. Surgery may be needed to correct any underlying conditions, such as enlarged adenoids. Follow these instructions at home: Medicines ?? Give [id number] and prescription medicines only as told by your child's health care provider. These may include nasal sprays. ? Do not give your child aspirin because of the association with Areli syndrome. ?? If your child was prescribed an antibiotic, give it as told by your child's health care provider. Do not stop giving the antibiotic even if your child starts to feel better. Hydrate and Humidify ?? Have your child drink enough fluid to keep his or her urine clear or pale yellow. ?? Use a cool mist humidifier to keep the humidity level in your home and the child's room above 50%. ?? Run a hot shower in a closed bathroom for several minutes. Sit with your child in the bathroom to inhale the steam from the shower for 10-15 minutes. Do this 3-4 times a day or as told by your child's health care provider. ?? Limit your child's exposure to cool or dry air. Rest ?? Have your child rest as much as possible. ?? Have your child sleep with his or her head raised (elevated). ?? Make sure your child gets enough sleep each night. General instructions ?? Do not expose your child to secondhand smoke. ?? Keep all follow-up visits as told by your child's health care provider. This is important. ?? Apply a warm, moist washcloth to your child's face 3-4 times a day or as told by your child's health care provider. This will help with discomfort. ?? Remind your child to wash his or her hands with soap and water often to limit the spread of germs. If soap and water are not available, have your child use hand battery assembler dry cell. Contact a health care provider if: ?? Your child has a fever. ?? Your child's pain, swelling, or other symptoms get worse. ?? Your child's symptoms do not improve after about a week of treatment. Get help right away if: ?? Your child has: ? A severe headache. ? Persistent vomiting. ? Vision problems. ? Neck pain or stiffness. ? Trouble breathing. ? A seizure. ?? Your child seems confused. ?? Your child who is younger than 3 months has a temperature of 100??F (38??C) or higher. This information is not intended to replace advice given to you by your health care provider. Make sure you discuss any questions you have with your health care provider. Document Released: 10/20/2007 Document Revised: 12/19/2017 Document Reviewed: 04/04/2016 [employer] Interactive Patient Education ?? 2019 [employer] documented in this encounter Plan of Treatment Not on file documented as of this encounter Goals Goal Patient Goal Type Associated Problems Recent Progress Patient-Stated? Author Stay Tobacco Free Lifestyle No Shakira Light CCMA documented as of this encounter Visit Diagnoses Diagnosis Acute bacterial sinusitis- Primary Acute sinusitis, unspecified Acute otitis media of both ears in pediatric patient documented in this encounter Care Teams Press Supervisor Relationship Specialty Start Date End Date Maryann Figueroa APRN [employer] [facility] [place] [id number] PCP - General Nurse Practitioner-Family 05/21/17 documented as of this encounter
--- OUTSIDE RECORDS SUMMARY | 2024-05-13 22:30 | XMS_ITS | Encounter Summary ---
Author Organization [place] [address] Care Team Providers Care Business Performance Advisor Name Role Phone Unavailable Primary Care Provider Unavailabl e Encounter Details Date Type Department Care Team (Late st Contact Info) Description 2004 3:24 PM EST - 2004 11:59 PM EST Hospital Encounter [facility] Kyle Lewis MD [address] [place] [address] Social History Tobacco Use Types Packs/Day Years [...]
--- OUTSIDE RECORDS SUMMARY | 2024-05-13 22:30 | XMS_ITS | Encounter Summary ---
Author Organization [place] [address] Care Team Providers Care Cotton Grader Name Role Phone Maryann Figueroa APRN Primary Care Provider [phone] Reason for Visit * Reason Comments Establish Care new pt, transferring from [facility] Encounter Details Date Type Department Care Team (Latest Contact Info) Description 05/21/2017 2:00 PM EST Office Visit SEP Tahir BARILLAS [address] [place] [id number] Maryann Figueroa APRN [address] [place], [place] [id number] Encounter for routine child health examination without abnormal findings (Primary Dx); Need for hepatitis A vaccination; Need for HPV vaccine; Needs flu shot; Insomnia, persistent; Poor concentration Social History Tobacco Use Types Packs/Day Years Used Date Smoking Tobacco: Former Cigarettes Q uit: 2016 Smokeless Tobacco: Never Comments:used to smoke 2 cig s/day Alcohol Use Standard Drinks/Week Comments No 0 (1 standard drink = 0.6 oz pur e alcohol) Sexually Active Control Partners Comments Never Comments No Sex and Gender Information Value Date Recorded Sex Assigned at Not on file Legal Sex Female 6:55 AM EDT Gender Identity Not on file Sexual Orientation Not on file documented as of this encounter Last Filed Vital Signs Vital Sign Reading Time Taken Comments Blood Pressure 108/66 05/21/2017 2:23 PM EST Pulse 90 05/21/2017 2:23 PM EST Temperature 36.8 ??C (98.3 ??F) 05/21/2017 2:23 PM ES T Respiratory Rate 16 05/21/2017 2:23 PM EST Oxygen Saturation 99% 05/21/2017 2:23 PM EST Inhaled Oxygen Concentration - - Weight 53.5 kg (118 lb) 05/21/2017 2:23 PM EST Height 165.1 cm (5' 5 ) 05/21/2017 2:23 PM EST Body Mass Index 19.64 05/21/2017 2:23 PM EST Body Mass Index Percentile 63.35% 05/21/2017 2:2 3 PM EST Growth Chart: [facility] (Girls, 2- 20 Years) documented in this encounter Ordered Prescriptions Prescription Sig Dispense Quantity Refills Last Filled Start Date End Date Melatonin (MELATIN) 3 mg Oral TabletIndications:I nsomnia, persistent Take 1 Tab by mouth nightly. 30 Tab 2 05/21/2017 01/16/2018 guanFACINE (TENEX) 1 mg Oral TabletIndications:I nsomnia, persistent Take 1 Tab by mouth nightly. 30 Tab 2 05/21/2017 07/02/2017 documented in this encounter Progress Notes * Maryann Figueroa APRN - 05/21/2017 2:00 PM EST Diagnoses and all orders for this visit: Encounter for routine child health examination without abnormal findings Comments: Reviewed growth and dev't and vaccine schedule. Need for hepatitis A vaccination - HEPATITIS A VACCINE PED ADOL 2 DOSE IM Need for HPV vaccine - HPV VACCINE 9 VALENT Needs flu shot - FLU VACCINE QUADRIVALENT (3YR+) Insomnia, persistent Comments: con't melatonin and trial TENEX to cover for insomnia and inability to focus. will re-evaluate in 6weeks and may increase frequency depending on sx. Orders: - guanFACINE (TENEX) 1 mg Oral Tablet; Take 1 Tab by mouth nightly. Dispense: 30 Tab; Refill: 2 - Melatonin (MELATIN) 3 mg Oral Tablet; Take 1 Tab by mouth nightly. Dispense: 30 Tab; Refill: 2 Poor concentration Comments: trial once a day tenex and recheck 6 weeks. may increased to BID if tolerating well. Chief Complaint Patient presents with ??? Establish Care new pt, transferring from [facility] Subjective Ms. Kumar is a 11 y.o. female here for an annual wellness physical exam and to establish PCP - prior PCP no longer accepts her insurance. Few concerns: insomnia, hard time falling asleep and staying asleep - social dysfunction, grandmother just got custody - has been giving her melatonin 3mg at night without improvement. Also failing 7th grade, not doing homework, unable to focus in school, very anxious. Has never beenevaluated for adhd that she knows of. Well Child Assessment: History was provided by the grandmother and legal guardian. Interval problems do not include caregiver depression. Nutrition Types of intake include cow's milk, cereals, junk food, meats and non- nutritional. Junk food includes fast food and soda. Dental The patient has a dental home. The patient brushes teeth regularly. The patient does not floss regularly. Last dental exam was less than 6 months ago. Elimination Elimination problems do not include constipation or diarrhea. There is no bed wetting. Behavioral Behavioral issues include performing poorly at school. Disciplinary methods include taking away privileges. Sleep Average sleep duration is 4 hours. There are sleep problems. School Current grade level is 7th. There are no signs of learning disabilities. Child is struggling in school. Screening There are risk factors related to diet. There are no risk factors related to relationships (few friends). There are risk factors related to friends or family (grandmother gained custody last month). There are risk factors related to emotions (anxiety,trouble sleeping). Social The caregiver enjoys the child. The child spends 2 hours (uses phone often) in front of a screen (tv or computer) per day. There is no problem list on file for this patient. History reviewed. No pertinent past medical history. Past Surgical History: Procedure Laterality Date ??? ADENOIDECTOMY ??? TONSILLECTOMY ??? TYMPANOSTOMY TUBE PLACEMENT No Known Allergies No current outpatient prescriptions on file prior to visit. No current facility-administered medications on file prior to visit. Social History Social History ??? Marital status: Single Spouse name: N/A ??? Number of children: N/A ??? Years of education: N/A Social History Main Topics ??? Smoking status: Former Smoker Types: Cigarettes Quit date: 2015 ??? Smokeless tobacco: Never Used Comment: used to smoke 2 cigs/day ??? Alcohol use No ??? Drug use: No ??? Sexual activity: No Other Topics Concern ??? None Social History Narrative 7th grade-not passing at this time. Grandmother recently gained custody last month and is working with geriatric social worker to help with school and anxiety. Family History Problem Relation Age of Onset ??? High Blood Pressure Father ??? High Blood Pressure Paternal Grandmother ??? No Known Problems Sister ??? No Known Problems Brother ??? High Blood Pressure Paternal Grandfather ??? Cancer Other skin Immunization History Administered Date(s) Administered ??? DTaP 2004, 2004, 02/14/2005, 02/11/2006, 02/24/2009 ??? DTaP, Unspecified Formulation 2004, 02/14/2005, 02/11/2006, 02/24/2009 ??? DTaP/Hep B/IPV 2004 ??? HPV 9 Valent 05/21/2017 ??? Hepatitis A, Ped/Adol, 2 Dose 05/21/2017 ??? Hepatitis B, Ped/Adol 2004, 03/22/2005, 02/11/2006 ??? HiB (PRP-OMP) 2004, 2004, 02/14/2005 ??? HiB, Unspecified Formulation 2004, 2004, 02/14/2005 ??? IPV 2004, 2004, 02/14/2005, 02/24/2009 ??? Influenza Vaccine Quadrivalent 05/21/2017 ??? LAST MANUFACTURED 2010-Pneumococcal Conjugate 7 Valent 2004, 2004, 02/14/2005 ??? MMR 08/01/2005, 02/24/2009 ??? Meningococcal Conjugate 02/20/2016 ??? Meningococcal MCV4, Unspecified Formulation 02/20/2016 ??? Pneumococcal Conjugate Vaccine 13 Valent 2004, 2004, 02/14/2005 ??? Tdap 02/20/2016 ??? Varicella 08/01/2005, 02/24/2009 Health Maintenance Topic Date Due ??? Hepatitis B Vaccine (1 of 3 - Primary Series) 2004 ??? IPV Vaccine (1 of 4 - All-IPV Series) 2004 ??? Hepatitis A Vaccine (1 of 2 - Standard Series) 2005 ??? MMR Vaccine (1 of 2) 2005 ??? Varicella Vaccine (1 of 2 - 2 Dose Childhood Series) 2005 ??? Annual Wellness Exam 2006 ??? DTaP/TDaP/Td (1 - Tdap) 2011 ??? HPV (1 of 2 - Female 2 Dose Series) 2015 ??? Meningococcal Vaccine (1 of 2) 2015 ??? Influenza Vaccine (1) 02/22/2017 ??? Rotavirus Vaccine Aged Out Health Maintenance Due Topic Date Due ??? Hepatitis B Vaccine (1 of 3 - Primary Series) 2004 ??? IPV Vaccine (1 of 4 - All-IPV Series) 2004 ??? Hepatitis A Vaccine (1 of 2 - Standard Series) 2005 ??? MMR Vaccine (1 of 2) 2005 ??? Varicella Vaccine (1 of 2 - 2 Dose Childhood Series) 2005 ??? Annual Wellness Exam 2006 ??? DTaP/TDaP/Td (1 - Tdap) 2011 ??? HPV (1 of 2 - Female 2 Dose Series) 2015 ??? Meningococcal Vaccine (1 of 2) 2015 ??? Influenza Vaccine (1) 02/22/2017 Patient Care Team: Maryann Figueroa APRN as PCP - General (Nurse Practitioner-Family) Review of Systems Constitutional: Negative for activity change, appetite change and fever. HENT: Negative for congestion, ear pain, sneezing and sore throat. Eyes: Negative for pain. Respiratory: Negative for cough, shortness of breath and wheezing. Cardiovascular: Negative for chest pain. Gastrointestinal: Negative for abdominal pain, constipation, diarrhea, nausea and vomiting. Endocrine: Negative for polydipsia, polyphagia and polyuria. Genitourinary: Negative for decreased urine volume, difficulty urinating and enuresis. Musculoskeletal: Negative for back pain, gait problem and joint swelling. Skin: Negative for rash and wound. Neurological: Negative for headaches. Hematological: Negative for adenopathy. Does not bruise/bleed easily. Psychiatric/Behavioral: Positive for behavioral problems, decreased concentration and sleep disturbance. Objective BP 108/66 Pulse 90 Temp 98.3 ??F (36.8 ??C) (Temporal) Resp 16 Ht 5' 5 (1.651 m) Wt 118 lb (53.5 kg) SpO2 99% BMI 19.64 kg/m?? Physical Exam Constitutional: She appears well-developed and well-nourished. She is active. HENT: Right Ear: Tympanic membrane normal. Left Ear: Tympanic membrane normal. Nose: Nose normal. No nasal discharge. Mouth/Throat: Mucous membranes are moist. No tonsillar exudate. Oropharynx is clear. Eyes: Conjunctivae are normal. Pupils are equal, round, and reactive to light. Neck: Normal range of motion. Neck supple. No neck adenopathy. Cardiovascular: Regular rhythm and S1 normal. Pulmonary/Chest: Effort normal and breath sounds normal. No respiratory distress. Abdominal: Soft. Bowel sounds are normal. There is no tenderness. Musculoskeletal: Normal range of motion. Neurological: She is alert. Skin: Skin is warm. No results found for: WBC, HGB, HCT, PLT, CHOLESTEROL, TRIG, HDL, LDLDIRECT, LDLCALC, ALT, AST, NA,K, CL, CREATININE, BUN, CO2, TSH, INR, GLUCOSE, GLU, HGBA1C, MICROALBUR, TSHREFLEX [facility] Documentation Medication Compliance: N/A not on medications Understanding of Current Medications: N/A not on any medications Medication Compliance Barriers: None or N/A Self-Management Ability: Good Willingness to Adopt Healthy Behaviors: Good Potential Barriers to completing treatment plans today: No significant barriers [facility] Flowsheet was completed/reviewed as part of today's visit. Educated patient and grandparent regarding the diagnosis, medication/treatment, goals, self-management tools and instructions based on their care plan. They verbalized understanding of the education given on the After Visit Summary [AVS] for today's visit. A copy of the AVS was provided either in writing and/or via [employer]. A new medicine was prescribed during this office visit. I did discuss the reason for prescribing this new medication. I also informed of possible likely side effects, but also encouraged them to readthe medication insert that will accompany their prescription and encouraged them to discuss any questions about the insert with their pharmacist. I instructed them to call if having side effects or possible allergic reaction after taking. I also discussed the risk of stopping the medication or deviating from prescribing instructions. Dosing instructions are present on the AVS and they are aware. I inquired of any questions and answered accordingly. documented in this encounter Miscellaneous Notes * Patient Instructions - Maryann Figueroa APRN - 05/21/2017 3:01 PM EST Patient Education Well Women'S Activities Adviser - 11-14 Years Old SCHOOL PERFORMANCE School becomes more difficult with multiple teachers, changing classrooms, and challenging academicwork. Stay informed about your child's school performance. Provide structured time for homework. Your child or teenager should assume responsibility for completing his or her own schoolwork. SOCIAL AND EMOTIONAL DEVELOPMENT Your child or teenager: ?? Will experience significant changes with his or her body as puberty begins. ?? Has an increased interest in his or her developing sexuality. ?? Has a strong need for peer approval. ?? May seek out more private time than before and seek independence. ?? May seem overly focused on himself or herself (self-centered). ?? Has an increased interest in his or her physical appearance and may express concerns about it. ?? May try to be just like his or her friends. ?? May experience increased sadness or loneliness. ?? Wants to make his or her own decisions (such as about friends, studying, or extracurricular activities). ?? May challenge authority and engage in power struggles. ?? May begin to exhibit risk behaviors (such as experimentation with alcohol, tobacco, drugs, and sex). ?? May not acknowledge that risk behaviors may have consequences (such as sexually transmitted diseases, , car accidents, or drug overdose). ENCOURAGING DEVELOPMENT ?? Encourage your child or teenager to: ?? Join a sports team or after-school activities. ? Have friends over (but only when approved by you). ?? Avoid peers who pressure him or her to make unhealthy decisions.? Eat meals together as a family whenever possible. Encourage conversation at mealtime. ? Encourage your teenager to seek out regular physical activity on a daily basis. ?? Limit television and computer time to 1-2 hours each day. Children and teenagers who watch excessive television are more likely to become overweight. ?? Monitor the programs your child or teenager watches. If you have cable, block channels that are not acceptable for his or her age. RECOMMENDED IMMUNIZATIONS ?? Hepatitis B vaccine. Doses of this vaccine may be obtained, if needed, to catch up on missed doses. Individuals aged 11-15 years can obtain a 2-dose series. The second dose in a 2-dose series should be obtained no earlier than 4 months after the first dose. ? Tetanus and diphtheria toxoids and acellular pertussis (Tdap) vaccine. All children aged 11-12 years should obtain 1 dose. The dose should be obtained regardless of the length of time since the last dose of tetanus and diphtheria toxoid-containing vaccine was obtained. The Tdap dose should be followed with a tetanus diphtheria (Td) vaccine dose every 10 years. Individuals aged 11-18 years who are not fully immunized with diphtheria and tetanus toxoids and acellular pertussis (DTaP) or who have not obtained a dose of Tdap should obtain a dose of Tdap vaccine. The dose should be obtained regardless of the length of time since the last dose of tetanus and diphtheria toxoid-containing vaccine was obtained. The Tdap dose should be followed with a Td vaccine dose every 10 years. children or teens should obtain 1 dose during each . The dose should be obtained regardless ofthe length of time since the last dose was obtained. Immunization is preferred in the 27th to 36th week of gestation. ? Pneumococcal conjugate (PCV13) vaccine. Children and teenagers who have certain conditions should obtain the vaccine as recommended. ? Pneumococcal polysaccharide (PPSV23) vaccine. Children and teenagers who have certain high-risk conditions should obtain the vaccine as recommended. ?? Inactivated poliovirus vaccine. Doses are only obtained, if needed, to catch up on missed doses in the past. ? Influenza vaccine. A dose should be obtained every year. ? Measles, mumps, and rubella (MMR) vaccine. Doses of this vaccine may be obtained, if needed, to catch up on missed doses. ? Varicella vaccine. Doses of this vaccine may be obtained, if needed, to catch up on missed doses. ? Hepatitis A vaccine. A child or teenager who has not obtained the vaccine before 2 years of age should obtain the vaccine if he or she is at risk for infection or if hepatitis A protection is desired. ? Human papillomavirus (HPV) vaccine. The 3-dose series should be started or completed at age 11-12 years. The second dose should be obtained 1-2 months after the first dose. The third dose should be obtained 24 weeks after the first dose and 16 weeks after the second dose. ? Meningococcal vaccine. A dose should be obtained at age 11-12 years, with a booster at age 16 years. Children and teenagers aged 11-18 years who have certain high-risk conditions should obtain 2 doses. Those doses should be obtained at least 8 weeks apart. ?? TESTING ?? Annual screening for vision and hearing problems is recommended. Vision should be screened at least once between 11 and 14 years of age. ?? Cholesterol screening is recommended for all children between 9 and 11 years of age. ?? Your child should have his or her blood pressure checked at least once per year during a well child checkup. ?? Your child may be screened for anemia or tuberculosis, depending on risk factors. ?? Your child should be screened for the use of alcohol and drugs, depending on risk factors. ?? Children and teenagers who are at an increased risk for hepatitis B should be screened for this virus. Your child or teenager is considered at high risk for hepatitis B if: ?? You were born in a country where hepatitis B occurs often. Talk with your health care provider about which countries are considered high risk. ?? You were born in a high-risk country and your child or teenager has not received hepatitis B vaccine. ?? Your child or teenager has HIV or AIDS. ?? Your child or teenager uses needles to inject street drugs. ?? Your child or teenager lives with or has sex with someone who has hepatitis B. ?? Your child or teenager is a male and has sex with other males (MSM). ?? Your child or teenager gets hemodialysis treatment. ?? Your child or teenager takes certain medicines for conditions like cancer, organ transplantation, and autoimmune conditions. ?? If your child or teenager is sexually active, he or she may be screened for: ?? Chlamydia. ?? Gonorrhea (females only). ?? HIV. ?? Other sexually transmitted diseases. ?? . ?? Your child or teenager may be screened for depression, depending on risk factors. ?? Your child's health care provider will measure body mass index (BMI) annually to screen for obesity. ?? If your child is female, her health care provider may ask: ?? Whether she has begun menstruating. ?? The start date of her last menstrual cycle. ?? The typical length of her menstrual cycle. The health care provider may interview your child or teenager without parents present for at least part of the examination. This can ensure greater honesty when the health care provider screens for sexual behavior, substance use, risky behaviors, and depression. If any of these areas are concerning, more formal diagnostic tests may be done. NUTRITION ?? Encourage your child or teenager to help with meal planning and preparation. ? Discourage your child or teenager from skipping meals, especially breakfast. ? Limit fast food and meals at restaurants. ? Your child or teenager should: ?? Eat or drink 3 servings of low-fat milk or dairy products daily. Adequate calcium intake is important in growing children and teens. If your child does not drink milk or consume dairy products, encourage him or her to eat or drink calcium-enriched foods such as juice; bread; cereal; dark green, leafy vegetables; or canned fish. These are alternate sources of calcium. ?? Eat a variety of vegetables, fruits, and lean meats. ?? Avoid foods high in fat, salt, and sugar, such as candy, chips, and cookies. ?? Drink plenty of water. Limit fruit juice to 8-12 oz (240-360 mL) each day. ?? Avoid sugary beverages or sodas. ? Body image and eating problems may develop at this age. Monitor your child or teenager closely for any signs of these issues and contact your health care provider if you have any concerns. ORAL HEALTH ?? Continue to monitor your child's toothbrushing and encourage regular flossing. ? Give your child fluoride supplements as directed by your child's health care provider. ? Schedule dental examinations for your child twice a year. ? Talk to your child's dentist about dental sealants and whether your child may need braces. ?? SKIN CARE ?? Your child or teenager should protect himself or herself from sun exposure. He or she should wear weather-appropriate clothing, hats, and other coverings when outdoors. Make sure that your child or teenager wears sunscreen that protects against both UVA and UVB radiation. ?? If you are concerned about any acne that develops, contact your health care provider. SLEEP ?? Getting adequate sleep is important at this age. Encourage your child or teenager to get 9-10 hours of sleep per night. Children and teenagers often stay up late and have trouble getting up in themorning. ?? Daily reading at bedtime establishes good habits. ? Discourage your child or teenager from watching television at bedtime. PARENTING TIPS ?? Teach your child or teenager: How to avoid others who suggest unsafe or harmful behavior. How to say no to tobacco, alcohol, and drugs, and why. ?? Tell your child or teenager: That no one has the right to pressure him or her into any activity that he or she is uncomfortable with. Never to leave a democrat or event with a stranger or without letting you know. Never to get in a car when the chuck wagon driver is under the influence of alcohol or drugs. To ask to go home or call you to be picked up if he or she feels unsafe at a democrat or in someone else's home. To tell you if his or her plans change. To avoid exposure to loud music or noises and wear ear protection when working in a noisy environment (such as mowing lawns). ?? Talk to your child or teenager about: Body image. Eating disorders may be noted at this time. His or her physical development, the changes of puberty, and how these changes occur at different times in different people. Abstinence, contraception, sex, and sexually transmitted diseases. Discuss your views about dating and sexuality. Encourage abstinence from sexual activity. Drug, tobacco, and alcohol use among friends or at friends' homes. Sadness. Tell your child that everyone feels sad some of the time and that life has ups and downs. Make sure your child knows to tell you if he or she feels sad a lot. Handling conflict without physical violence. Teach your child that everyone gets angry and that talking is the best way to handle anger. Make sure your child knows to stay calm and to try to understand the feelings of others. Tattoos and body piercing. They are generally permanent and often painful to remove. Bullying. Instruct your child to tell you if he or she is bullied or feels unsafe. ?? Be consistent and fair in discipline, and set clear behavioral boundaries and limits. Discuss curfew with your child. ?? Stay involved in your child's or teenager's life. Increased parental involvement, displays of love and caring, and explicit discussions of parental attitudes related to sex and drug abuse generally decrease risky behaviors. ?? Note any mood disturbances, depression, anxiety, alcoholism, or attention problems. Talk to yourchild's or teenager's health care provider if you or your child or teen has concerns about mental illness. ?? Watch for any sudden changes in your child or teenager's peer group, interest in school or social activities, and performance in school or sports. If you notice any, promptly discuss them to figure out what is going on. ?? Know your child's friends and what activities they engage in. ?? Ask your child or teenager about whether he or she feels safe at school. Monitor gang activity in your neighborhood or local schools. ?? Encourage your child to participate in approximately 60 minutes of daily physical activity. SAFETY ?? Create a safe environment for your child or teenager. Provide a tobacco-free and drug-free environment. Equip your home with smoke detectors and change the batteries regularly. Do not keep handguns in your home. If you do, keep the guns and ammunition locked separately. Your child or teenager should not know the lock combination or where the rodríguez is kept. He or she may imitate violence seen on television or in movies. Your child or teenager may feel that he or she is invincible and does not always understand the consequences of his or her behaviors. ?? Talk to your child or teenager about staying safe: Tell your child that no adult should tell him or her to keep a secret or scare him or her. Teach your child to always tell you if this occurs. Discourage your child from using matches, lighters, and candles. Talk with your child or teenager about texting and the Internet. He or she should never reveal personal information or his or her location to someone he or she does not know. Your child or teenager should never meet someone that he or she only knows through these media forms. Tell your child or teenager that you are going to monitor his or her cell phone and computer. Talk to your child about the risks of drinking and driving or boating. Encourage your child to callyou if he or she or friends have been drinking or using drugs. Teach your child or teenager about appropriate use of medicines. ?? When your child or teenager is out of the house, know: Who he or she is going out with. Where he or she is going. What he or she will be doing. How he or she will get there and back. If adults will be there. ?? Your child or teen should wear: A properly-fitting helmet when riding a bicycle, skating, or skateboarding. Adults should set a good example by also wearing helmets and following safety rules. A life vest in boats. ?? Restrain your child in a belt-positioning booster seat until the vehicle seat belts fit properly. The vehicle seat belts usually fit properly when a child reaches a height of 4 ft 9 in (145 cm). This is usually between the ages of 8 and 12 years old. Never allow your child under the age of 13 toride in the front seat of a vehicle with air bags. ?? Your child should never ride in the bed or cargo area of a pickup truck. ?? Discourage your child from riding in all-terrain vehicles or other motorized vehicles. If your child is going to ride in them, make sure he or she is supervised. Emphasize the importance of wearing a helmet and following safety rules. ?? Trampolines are hazardous. Only one person should be allowed on the trampoline at a time. ?? Teach your child not to swim without adult supervision and not to dive in shallow water. Enroll your child in swimming lessons if your child has not learned to swim. ?? Closely supervise your child's or teenager's activities. WHAT'S NEXT? Preteens and teenagers should visit a automatic embroidery machine tender yearly. This information is not intended to replace advice given to you by your health care provider. Make sure you discuss any questions you have with your health care provider. Document Released: 09/05/2007 Document Revised: 07/01/2015 Document Reviewed: 02/23/2014 [employer] Interactive Patient Education ??2016 [employer] documented in this encounter Plan of Treatment Not on file documented as of this encounter Goals Goal Patient Goal Type Associated Problems Recent Progress Patient-Stated? Author Stay Tobacco Free Lifestyle No Shakira LightKATE documented as of this encounter Visit Diagnoses Diagnosis Encounter for routine child health examination without abnormal findings- Primary Routine infant or child health check Need for hepatitis A vaccination Need for prophylactic vaccination and inoculation against viral hepatitis Need for HPV vaccine Need for prophylactic vaccination and inoculation against other viral diseases Needs flu shot Need for prophylactic vaccination and inoculation against influenza Insomnia, persistent Persistent disorder of initiating or maintaining sleep Poor concentration Attention or concentration deficit documented in this encounter Orders Immunization/Injection Count Last Ordered Date First Ordered Date FLU VACCINE QUADRIVALENT (3YR+) 1 7 HEPATITIS A VACCINE PED ADOL 2 DOSE IM 1 HPV VACCINE 9 VALENT 1 05/21/2017 documented in this encounter Care Teams Cotton Grader Relationship Specialty Start Date End Date Maryann Figueroa APRN [address] [place] [address] PCP - General Nurse Practitioner-Family 05/21/17 documented as of this encounter
--- OUTSIDE RECORDS SUMMARY | 2024-05-13 22:30 | XMS_ITS | Encounter Summary ---
Author Organization [place] [address] Care Team Providers Care Residential Finish Carpenter Name Role Phone Maryann Figueroa APRN Primary Care Provider Reason for Visit * Reason Comments Knee Pain left knee pain, inju red skate boarding Encounter Details Date Type Department Care Team (Late st Contact Info) Description 07/30/2019 3:25 PM EST - 07/30/2019 4:34 PM EST Emergency [facility] [address] [place] [address] Marilou Hackett MD [address] [place], [place] [id number] Sprain of other ligament of right knee, initial encounter (Primary Dx) Discharge Disposition: Home or Self Care Social History Tobacco Use Types Packs/Day Years Used Date Smoking Tobacco: Every Day Cigarettes Last attempted to quit: 2016 Smokeless Tobacco: Never Comments:used to smoke 2 cig s/day Alcohol Use Standard Drinks/Week Comments No 0 (1 standard drink = 0.6 oz pur e alcohol) Overall Financial Resource Strain (CARDIA) Answe r Date Recorded Difficulty of Paying Living Expenses Not hard at all 07/31/2019 PHQ-2 Answer Date Recorded PHQ-2 Score 0 11/14/2018 Hunger Vital Sign Answer Date Recorded Worried About Running Out of Food in the Last Ye ar Never true 07/31/2019 Ran Out of Food in the Last Year Never true 07/31/2019 PRAPARE - Transportation Answer Date Re corded Lack of Transportation (Medical) No 07/31/2019 Lack of Transportation (Non-Medical) No 07/31/2019 Sexually Active Control Partners Comments Never Comments No Sex and Gender Information Value Date Recorded Sex Assigned at Not on file Legal Sex Female 6:55 AM EDT Gender Identity Not on file Sexual Orientation Not on file documented as of this encounter Last Filed Vital Signs Vital Sign Reading Time Taken Comments Blood Pressure 110/63 07/30/2019 4:25 PM EST Pulse 77 07/30/2019 4:25 PM EST Temperature 36.9 ??C (98.5 ??F) 07/30/2019 4:11 PM ES T Respiratory Rate 16 07/30/2019 4:25 PM EST Oxygen Saturation 100% 07/30/2019 4:25 PM EST Inhaled Oxygen Concentration - - Weight 62.6 kg (138 lb) 07/30/2019 4:11 PM EST Height 154.9 cm (5' 1 ) 07/30/2019 4:11 PM EST Body Mass Index 26.07 07/30/2019 4:11 PM EST Body Mass Index Percentile 91.56% 07/30/2019 4:1 1 PM EST Growth Chart: [facility] (Girls, 2- 20 Years) documented in this encounter Discharge Instructions * Discharge Instructions* Meagan Tucker APRN - 07/30/2019 4:10 PM EST H has been advised to use Pedro wrap for comfort and support. She is to follow with the orthopedist in 1-2 days. May take Tylenol or Motrin for pain. Return for worsening or change * Attachments The following attachments cannot be sent through Care Everywhere. * Elastic Bandage and RICE Therapy (Bahamian) * Knee Sprain Adult Edjq-sj-Qyjz (Bahamian) documented in this encounter Discharge Disposition Disposition Code Departure Means Destination Home or Self Alf documented in this encounter ED Notes * Margo Metz RN - 07/30/2019 4:13 PM EST Pedro wrap applied per MMU nurse. Circ check and sensation intact pre and post application. * Margo Metz RN - 07/30/2019 3:25 PM EST Pain in right knee - no swelling or deformity. Circ check and sensation intact. * Meagan Tucker APRN - 07/30/2019 2:54 PM EST CHIEF COMPLAINT Chief Complaint Patient presents with ??? Knee Pain left knee pain, injured skate boarding [facility] Minda Kumar is a 14 y.o. female who presents to the Emergency Room patient is complaining of right knee pain. States she ended injured this approximately 2 weeks ago on her skateboard state that she's been ambulatory, but the pain has been excruciating for the past 2 weeks. States she was unable to see her doctor as he's been out of the office for 2 weeks. She denies any other injury. She hasno evidence of any erythema, edema, ecchymosis or obvious deformity REVIEW OF SYSTEMS See HPI for further details. Review of systems otherwise negative. PAST MEDICAL HISTORY History reviewed. No pertinent past medical history. FAMILY HISTORY Family History Problem Relation Age of Onset ??? High Blood Pressure Father ??? High Blood Pressure Paternal Grandmother ??? No Known Problems Sister ??? No Known Problems Brother ??? High Blood Pressure Paternal Grandfather ??? Cancer Other skin SOCIAL HISTORY Social History Socioeconomic History ??? Marital status: Single Spouse name: None ??? Number of children: None ??? Years of education: None ??? Highest education level: None Tobacco Use ??? Smoking status: Current Every Day Smoker Packs/day: 0.50 Types: Cigarettes Last attempt to quit: 2016 Years since quittin.1 ??? Smokeless tobacco: Never Used ??? Tobacco comment: used to smoke 2 cigs/day Substance and Sexual Activity ??? Alcohol use: No ??? Drug use: No ??? Sexual activity: Never Social History Narrative 7th grade-not passing at this time. Grandmother recently gained custody last month and is working with social media assistant to help with school and anxiety. SURGICAL HISTORY Past Surgical History: Procedure Laterality Date ??? ADENOIDECTOMY ??? TONSILLECTOMY ??? TYMPANOSTOMY TUBE PLACEMENT CURRENT MEDICATIONS No current facility-administered medications for this encounter. Current Outpatient Medications: ??? amitriptyline (ELAVIL) 25 mg Oral Tablet, Take 25 mg by mouth nightly., Disp: , Rfl: 5 ??? amoxicillin (AMOXIL) 500 mg Oral Capsule, Two caps by mouth twice a day for ten days (Patient not taking: Reported on 07/30/2019), Disp: 40 Cap, Rfl: 0 ALLERGIES No Known Allergies PHYSICAL EXAM VITAL SIGNS: ED Triage Vitals Temp Pulse Resp BP SpO2 Height Weight Constitutional: Well developed, Well nourished, No acute distress, Non-toxic appearance. HENT: Normocephalic, Atraumatic, Bilateral external ears normal, Nose normal. Eyes: Pupils equal and round, Conjunctiva normal, No discharge. Neck: Normal range of motion, Supple, No stridor. Cardiovascular: Normal heart rate. Thorax & Lungs: No respiratory distress. Musculoskeletal: Ambulatory, gross range of motion normal.Knee: Normal knee, No swelling, No tenderness, Full range of motion, No deformity, No effusion, No ligamentous instability. Negative for increased pain to lateral and medial stressors Skin: Warm and dry. Neurologic: Alert. No focal deficits. LABS/RADIOLOGY/PROCEDURES Labs Reviewed - No data to display XR KNEE RIGHT AP LAT INT EXT OBLIQUES AND SUNRISE Final Result XR KNEE RIGHT AP LAT INT EXT OBLIQUES AND SUNRISE, 07/30/2019 3:58 PM CLINICAL HISTORY: Skateboarding accident, knee pain. COMPARISON: None. PROCEDURE COMMENTS: Routine views per the ordered protocol. FINDINGS: No evidence of knee fracture or malalignment. No significant effusion. Joint spaces overall well-maintained. No periostitis. IMPRESSION: No acute abnormality of the knee. - COURSE & MEDICAL DECISION MAKING Pertinent Labs & Imaging studies reviewed. (See chart for details) Vitals: 07/30/19 1611 07/30/19 1625 BP: 112/76 110/63 BP Location: Left arm Patient Position: Sitting Pulse: 68 77 Resp: 18 16 Temp: 98.5 ??F (36.9 ??C) SpO2: 100% 100% Weight: 138 lb (62.6 kg) Height: 5' 1 (1.549 m) Minda Kumar presents to the ED with the above complaints. X-rays negative for any acute bony abnormality. We'll place an Pedro wrap and referred to orthopedist. Return for worsening or change FINAL IMPRESSION 1. Sprain of other ligament of right knee, initial encounter This chart was completed using voice recognition technology and may contain unintended errors Meagan Tucker, STILL OPERATOR BATCH OR CONTINUOUS 07/30/19 1609 Meagan Tucker, STILL OPERATOR BATCH OR CONTINUOUS 07/30/19 1631 Cosigned by Marilou Hackett MD at 07/30/2019 5:47 PM EST Associated attestation - Marilou Hackett MD - 07/30/2019 5:47 PM EST I agree with the plan above. I was present and available for questions at all times. This chart was completed using voice recognition technology and may contain unintended errors documented in this encounter Plan of Treatment Not on file documented as of this encounter Goals Goal Patient Goal Type Associated Problems Recent Progress Patient-Stated? Author Stay Tobacco Free Lifestyle No Shakira Light CCMA documented as of this encounter Procedures Procedure Name Priority Date/Time Associated Diagnosis Comments XR KNEE RIGHT AP LAT INT EXT OBLIQUES AND SUNRISE MARIA LUZ 07/30/2019 3:58 PM EST documented in this encounter Results * XR KNEE RIGHT AP LAT INT EXT OBLIQUES AND SUNRISE (07/30/2019 3:58 PM EST) Anatomical Region Laterality Modality Knee Radio Fluoroscop y 07/30/2019 3:58 PM EST Impressions 07/30/2019 4:04 PM EST No acute abnormality of the knee. - Narrative 07/30/2019 4:04 PM EST XR KNEE RIGHT AP LAT INT EXT OBLIQUES AND SUNRISE, ??07/30/2019 3:58 PM CLINICAL HISTORY: ??Skateboarding accident, knee pain. COMPARISON: ??None. PROCEDURE COMMENTS: Routine views per the ordered protocol. ?? FINDINGS: No evidence of knee fracture or malalignment. No significant effusion. Joint spaces overall well-maintained. No periostitis. Procedure Note Kevin Rae MD - 07/30/2019 XR KNEE RIGHT AP LAT INT EXT OBLIQUES AND SUNRISE, 07/30/2019 3:58 PM CLINICAL HISTORY: Skateboarding accident, knee pain. COMPARISON: None. PROCEDURE COMMENTS: Routine views per the ordered protocol. FINDINGS: No evidence of knee fracture or malalignment. No significanteffusion. Joint spaces overall well-maintained. No periostitis. IMPRESSION: No acute abnormality of the knee. - Meagan Tucker APRN IMG DIAGNOSTIC IMAGING ORDE ALEXEI Final Result documented in this encounter Visit Diagnoses Diagnosis Sprain of other ligament of right knee, initial encounter- Primary documented in this encounter Orders Nursing Count Last Ordered Date First Orde red Date PEDRO WRAP 1 07/30/2019 documented in this encounter Care Teams Residential Finish Carpenter Relationship Specialty Start Date End Date Maryann Figueroa APRN [address] [place], [place] [address] PCP - General Nurse Practitioner-Family 05/21/17 documented as of this encounter
--- OUTSIDE RECORDS SUMMARY | 2024-05-13 22:30 | XMS_ITS | Encounter Summary ---
Author Organization [place] [address] Care Team Providers Care Assembler Product Name Role Phone Maryann Figueroa APRN Primary Care Provider [phone] Reason for Visit * Reason Comments Other abcess tooth Encounter Details Date Type Department Care Team (Late st Contact Info) Description 05/27/2017 2:30 PM EST Office Visit [facility] [place] [address] [address] Ketan Fonseca MD [address] [place] [address] Facial swelling (Primary Dx) Social History Tobacco Use Types [...] Sign Reading Time Taken Comments Blood Pressure 110/70 05/27/2017 2:55 PM EST Pulse 88 05/27/2017 2:55 PM EST Temperature 36.7 ??C (98 ??F) 05/27/2017 2:55 PM EST Respiratory Rate 18 05/27/2017 2:55 PM EST Oxygen Saturation 99% 05/27/2017 2:55 PM EST Inhaled Oxygen Concentration - - Weight 54 kg (119 lb) 05/27/2017 2:55 PM EST Height 165.1 cm (5' 5 ) 05/27/2017 2:55 PM EST Body Mass Index 19.8 05/27/2017 2:55 PM EST Body Mass Index Percentile 65.03% 05/27/2017 2:5 5 PM EST Growth Chart: [facility] (Girls, 2- 20 Years) documented in this encounter Progress Notes * Ketan Fonseca MD - 05/27/2017 2:30 PM EST Minda Kumar is a 11 y.o. female This patient is accompanied in the office by her mother. Chief Complaint Patient presents with ??? Other abcess tooth HPI: Discussed with mother over the weekend. Had swelling of lip and face after dental procedure for 2 abscessed front teeth. Currently on amoxil and flagyl. No fevers. Minimal pain. No redness. BP 110/70 Pulse 88 Temp 98 ??F (36.7 ??C) Resp 18 Ht 5' 5 (1.651 m) Wt 119 lb (54 kg) SpO2 99% BMI 19.80 kg/m?? Awake/Alert. Nontoxic and Interactive. Eye exam is normal - ADALID, EOMI, fundi normal, corneas normal, no foreign bodies, visual acuity normal both eyes, no periorbital cellulitis. Some facial swelling in right cheek without obvious abscess. Ear exam - Left TM normal. External canal normal. Right TM normal. External canal normal. Oral cavity, tongue, pharynx [...] No CVA tenderness or inguinal adenopathy noted. No Known Allergies PLAN Minda was seen today for other. Diagnoses and all orders for this visit: Facial swelling Looks like simple facial swelling related to dental procedure. No evidence of abscess at this point. Clinically not infected. Continue current antibiotics. F/u with Dr. Hsieh (dentist) Followup This information has been fully discussed with her mother and all their questions were answered. Educated patient and mother regarding the care plan and instructions listed on the After Visit Summary [AVS] for today's visit. The patient and mother verbalized full understanding of the care plan and instructions given on the AVS for today's visit. If a new medication was prescribed during this office visit. I did discuss with the patient the reason for prescribing this new medication. I also did inform the patient of possible likely side effects, but also encouraged the patient to read the medication insert that will accompany their prescription and encouraged her to discuss any questions about the insert with their pharmacist. She was instructed to call if having side effects or possible allergic reaction after taking. I also discussed with her the risk of stopping the medication or deviating from prescribing instructions. Dosing instructions are present on the AVS and she is aware. I inquired both patient and family of any questions and answered accordingly. documented in this encounter Plan of Treatment Not on file documented as of this encounter Goals Goal Patient Goal Type Associated Problems Recent Progress Patient-Stated? Author Stay Tobacco Free Lifestyle No Shakira Light CCMA documented as of this encounter Visit Diagnoses Diagnosis Facial swelling- Primary Swelling, mass, or lump in head and neck documented in this encounter Historical Medications * This list may reflect changes made after this encounter. HYDROcodone-aceta minophen (NORCO) 5-325 mg Oral Tablet Take 1 Tab by mouth every 6 hours as needed for Pain. 07/02/2017 penicillin v potassium (VEETID) 250 mg Oral Tablet Take 250 mg by mouth every 8 hours. 07/02/2017 metroNIDAZOLE (FLAGYL) 500 mg Oral Tablet Take 500 mg by mouth every 8 hours. 07/02/2017 added in this encounter Care Teams Assembler Product Relationship Specialty Start Date End Date Maryann Figueroa APRN [address] [place], [place] [address] PCP - General Nurse Practitioner-Family 05/21/17 documented as of this encounter
--- OUTSIDE RECORDS SUMMARY | 2024-05-13 22:30 | XMS_ITS | Encounter Summary ---
Author Organization [place] [address] Care Team Providers Care Braided Rug Maker Name Role Phone Maryann Figueroa APRN Primary Care Provider [phone] Reason for Visit * Reason Comments Medication Refill Encounter Details Date Type Department Care Team (Late st Contact Info) Description 12/15/2019 Refill [facility] [address] [place] [id number] Maryann Figueroa APRN [address] [place] [address] Medication Refill Social History Tobacco Use [...] CAPSULE BY MOUTH DAILY 30 Cap 2 12/15/2019 0 documented in this encounter Plan of [...] Release(E.C.) Take 1 Cap by mouth daily. 09/23/2019 12/15/2019 documented as of this encounter Care Teams Braided Rug Maker Relationship Specialty Start Date End Date Maryann Figueroa APRN [address] [place], [place] [address] PCP - General Nurse Practitioner-Family 05/21/17 documented as of this encounter
--- OUTSIDE RECORDS SUMMARY | 2024-05-13 22:30 | XMS_ITS | Encounter Summary ---
Author Organization [facility] [place] [address] Care Team Providers Care Real Estate Closing Coordinator Name Role Phone Maryann Figueroa APRN Primary Care Provider [phone] Encounter Details Date Type Department Care Team (Latest Contact Info) Description 08/18/2019 Travel Social History Tobacco Use Types Packs/Day [...] on filedocumented in this encounter Care Teams Real Estate Closing Coordinator Relationship Specialty Start Date End Date Maryann Figueroa APRN [address] [place] [address] PCP - General Nurse Practitioner-Family 05/21/17 documented as of this encounter
--- OUTSIDE RECORDS SUMMARY | 2024-05-13 22:30 | XMS_ITS | Encounter Summary ---
Author Organization [place] [address] Care Team Providers Care Vertical Lathe Operator Name Role Phone Maryann Figueroa APRN Primary Care Provider [phone] Reason for Visit * Reason Onset Date Comments Medication Change 09/23/2019 Encounter Details Date Type Department Care Team (Late st Contact Info) Description 09/23/2019 Telephone [facility] [address] [place] [address] Maryann Figueroa APRN [address] [place] [address] Medication Change Social History Tobacco Use Types Packs/Day Years [...] Cap by mouth daily. 30 Cap 2 09/23/2019 12/15/2019 documented in this encounter Miscellaneous Notes * Telephone Encounter - Shakira Khan CCMA - 09/23/2019 2:02 PM EDT Changed to omeprazole * Telephone Encounter - Adamaris Martínez - 09/23/2019 1:59 PM EDT Ranitidine has been pulled from store shelves. What else would you like her to take. documented in this encounter Plan of Treatment Not on file documented as of this encounter Goals Goal Patient Goal Type Associated Problems Recent Progress Patient-Stated? Author Stay Tobacco Free Lifestyle No Shakira Light CCMA documented as of this encounter Visit Diagnoses Not on filedocumented in this encounter Discontinued Medications Medication Sig Discontinue Reason Start Date End Da te ranitidine (ZANTAC) 150 mg Oral TabletIndications:Gastroe sophageal reflux disease without esophagitis Take 1 Tab by mouth nightly. Side effects 08/20/2019 09/23/2019 documented as of this encounter Care Teams Vertical Lathe Operator Relationship Specialty Start Date End Date Maryann Figueroa APRN [address] [place], [place] [address] PCP - General Nurse Practitioner-Family 05/21/17 documented as of this encounter
--- OUTSIDE RECORDS SUMMARY | 2024-05-13 22:30 | XMS_ITS | Encounter Summary ---
Author Organization [place] [address] Care Team Providers Care Grain Shoveler Name Role Phone Unavailable Primary Care Provider Unavailabl e Encounter Details Date Type Department Care Team (Late st Contact Info) Description 2004 12:01 AM EST - 2004 11:59 PM EST Hospital Encounter [facility] Kyle Lewis MD [address] [place] [address] Social History Tobacco Use Types Packs/Day Years [...]
--- OUTSIDE RECORDS SUMMARY | 2024-05-13 22:30 | XMS_ITS | Encounter Summary ---
Author Organization [place] [address] Care Team Providers Care Parking Officer Name Role Phone Maryann Figueroa APRN Primary Care Provider [phone] Reason for Visit * Reason Onset Date Comments ED Follow-Up Call 07/31/2019 Encounter Details Date Type Department Care Team (Late st Contact Info) Description 07/31/2019 Patient Outreach SEP Quality Transformation [address] [place] [address] Jessie Montoya BA, COS ED Follow-Up Call Social History Tobacco Use Types Packs/Day Years Used Date Smoking Tobacco: Every Day Cigarettes Last attempted to quit: 2015 Smokeless Tobacco: Never Comments:used to smoke 2 [...] as of this encounter Progress Notes * Jessie Montoya BA, COS - 07/31/2019 2:11 PM EST ED Follow Up Regarding the most recent emergency room visit: Number of ED visits in last year: 1 Contact made?: Yes (Comment: grandmother ) Medical reason for visit: Sprain of other ligament of right knee, initial encounter Do you feel the staff kept you informed during your visit?: Yes Have your symptoms improved since your ED visit?: Yes Were you able to, or did you try to, reach us prior to deciding to go to the ED?: No Were you aware that we always have a provider principal research economist and offer eVisits?: No (Comment: educated) Are you aware of the [facility] or [facility]?: Yes Did you get a prescription, or were your medications changed?: Yes (Comment: affordable / no questions ) Did you get it filled?: Yes If patient is unable to fill medications, please consider a social work consult if criteria met: Would you like to follow up with your PCP?: Yes (Comment: already called ) It is important to us that you understood your discharge instructions from the ED. Do you have any questions?: No Are there additional concerns that we have not discussed that I can help you with?: No Socioeconomic questionnaire completed. No needs identified at this time. documented in this encounter Plan of Treatment Not on file documented as of this encounter Goals Goal Patient Goal Type Associated Problems Recent Progress Patient-Stated? Author Stay Tobacco Free Lifestyle No Shakira Light CCMA documented as of this encounter Visit Diagnoses Not on filedocumented in this encounter Care Teams Parking Officer Relationship Specialty Start Date End Date Maryann Figueroa APRN [address] [place], [place] [address] PCP - General Nurse Practitioner-Family 05/21/17 documented as of this encounter
--- OUTSIDE RECORDS SUMMARY | 2024-05-13 22:30 | XMS_ITS | Encounter Summary ---
Author Organization [facility] [place] [address] Care Team Providers Care Semiconductor Wafers Etch Operator Name Role Phone Maryann Figueroa APRN Primary Care Provider [phone] Reason for Visit * Reason Comments Well Child 14 year Encounter Details Date Type Department Care Team (Late st Contact Info) Description 08/18/2019 8:20 AM EST Office Visit [facility] [place] [address] [place] [address] Ketan Fonseca MD [address] [place] [address] Vaginal discharge (Primary Dx); Amenorrhea; Insomnia, persistent; Major depressive disorder, recurrent episode, mild (HCC) [...] Sign Reading Time Taken Comments Blood Pressure 110/68 08/18/2019 8:23 AM EST Pulse 98 08/18/2019 8:23 AM EST Temperature 36.7 ??C (98 ??F) 08/18/2019 8:23 AM EST Respiratory Rate 18 08/18/2019 8:23 AM EST Oxygen Saturation 97% 08/18/2019 8:23 AM EST Inhaled Oxygen Concentration - - Weight 63 kg (139 lb) 08/18/2019 8:23 AM EST Height 154.9 cm (5' 1 ) 08/18/2019 8:23 AM EST Body Mass Index 26.26 08/18/2019 8:23 AM EST Body Mass Index Percentile 91.90% 08/18/2019 8:2 3 AM EST Growth Chart: [facility] (Girls, 2- 20 Years) documented in this encounter Ordered Prescriptions Prescription Sig Dispense Quantity Refills Last Filled Start Date End Date traZODone (DESYREL) 50 mg Oral TabletIndications: Insomnia, persistent Take 1 Tab by mouth nightly for 180 days. 30 Tab 5 08/18/2019 0 sertraline (ZOLOFT) 50 mg Oral TabletIndications: Major depressive disorder, recurrent episode, mild (HCC) Take 1 Tab by mouth daily for 180 days. 30 Tab 5 08/18/2019 0 norgestimate-ethin yl estradioL (ORTHO-CYCLEN) 0.25-35 mg-mcg Oral TabletIndications: Amenorrhea Take 1 Tab by mouth daily. 28 Tab 11 08/18/2019 0 documented in this encounter Progress Notes * Ketan Fonseca MD - 08/18/2019 8:20 AM EST Assessment Diagnoses and all orders for this visit: Vaginal discharge - CHLAMYDIA/GC; Future - ACUTE HEPATITIS PANEL; Future - SYPHILIS SCREEN WITH REFLEX RPR QUANT; Future Amenorrhea - HUMAN CHORIONIC GONADOTROPIN QUANTITATIVE; Future - norgestimate-ethinyl estradioL (ORTHO-CYCLEN) 0.25-35 mg-mcg Oral Tablet; Take 1 Tab by mouth daily. Dispense: 28 Tab; Refill: 11 Insomnia, persistent Overview: Develop nighttime routine, less electronics. con't melatonin. Orders: - traZODone (DESYREL) 50 mg Oral Tablet; Take 1 Tab by mouth nightly for 180 days. Dispense: 30 Tab; Refill: 5 Major depressive disorder, recurrent episode, mild (HCC) (Chronic) - sertraline (ZOLOFT) 50 mg Oral Tablet; Take 1 Tab by mouth daily for 180 days. Dispense: 30 Tab; Refill: 5 Long discussion about multiple issues today. She has irregular cycles as a baseline and has not hada period since June. She is also not been sexually active since that time so does not think she is . However we will check a quantitative hCG as well as STD check per the request today. Wediscussed the possibility of Depo-Provera versus oral contraceptives. She does not think she is willing to take a shot and would like to try the oral contraceptives in the hope that will regulate herperiods but also provide some control. Discussed the fact that this does not protect her against future sexually transmitted diseases and that no control is 100% effective. She also smokes. She was strongly encouraged to stop smoking and the risk of a blood clot due to the combination of smoking and oral contraceptives was discussed with him at length. Also offered her counseling services through the office today. Progress Note: Vitals: 08/18/19 0823 BP: 110/68 Pulse: 98 Resp: 18 Temp: 98 ??F (36.7 ??C) SpO2: 97% Weight: 139 lb (63 kg) Height: 5' 1 (1.549 m) SUBJECTIVE: Chief Complaint Patient presents with ??? Well Child 14 year HPI: Well Child: Well Child Visit 12-17 Year Old: SUBJECTIVE: 14 y.o. female brought in by mother for routine check up. Parental concerns: There are several concerns today. She is not sleeping well and feels like the amitriptyline is no longer helpful. She continues to have depressive and anxiety type symptoms relatedto family issues. Would like to see if there is any medication that can help manage this. She has been sexually active over the past several months although she has not been sexually active for the past 2 months. Mom is concerned would like to get her on control. She has had some mild vaginaldischarge and they would like to get some STD checks done as well although there is low suspicion for this at this time.. Review: Allergies: [facility] allergy list updated and can be noted below under ALLERGIES. Diet: normal Sleep: insomnia Behavioral problems: depression Social interactions: normal Activity level: normal Recent Illnesses: none School performance: adequate Sports/Extracurricular activities: none Growth & Development: Writes at an age appropriate level: yes Reads at an age appropriate level: yes Doing math in school and doing well: yes Engages in conversation: yes Avoids drugs, tobacco, alcohol: yes Up to date on immunizations including Meningococcal and Gardisil: yes Females only: Has started menses: {Yes No Known Allergies Current Outpatient Medications on File Prior to Visit Medication Sig Dispense Refill ??? amoxicillin (AMOXIL) 500 mg Oral Capsule Two caps by mouth twice a day for ten days (Patient not taking: Reported on 07/30/2019) 40 Cap 0 No current facility-administered medications on file prior to visit. History reviewed. No pertinent past medical history. Review of Systems Constitutional: Negative. HENT: Negative. Eyes: Negative. Respiratory: Negative. Cardiovascular: Negative. Gastrointestinal: Negative. Endocrine: Negative. Genitourinary: Negative. Musculoskeletal: Negative. Skin: Negative. Allergic/Immunologic: Negative. Neurological: Negative. Hematological: Negative. Psychiatric/Behavioral: Negative. OBJECTIVE: Physical Exam Vitals signs reviewed. Constitutional: [...] and oriented to person, place, and time. * Cindy Smart - 08/18/2019 8:20 AM EST Venipuncture in the right antecubital vein with 21 gauge needle, length 1 1/2 inch. documented in this encounter Plan of Treatment Not on file documented as of this encounter Goals Goal Patient Goal Type Associated Problems Recent Progress Patient-Stated? Author Stay Tobacco Free Lifestyle No Shakira Light CCMA documented as of this encounter Procedures Procedure Name Priority Date/Time Associated Diagnosis Comments CHLAMYDIA/GC Routine 08/18/2019 9:36 AM EST Vaginal discharge SYPHILIS SCREEN WITH REFLEX RPR QUANT Routine 08/18/2019 9:36 AM EST Vaginal discharge CHLAMYDIA/GC BY TMA Routine 08/18/2019 9 :36 AM EST Vaginal discharge ACUTE HEPATITIS PANEL Routine 08/18/2019 9:36 AM EST Vaginal discharge HUMAN CHORIONIC GONADOTROPIN QUANTITATIVE Routine 08/18/2019 9:36 AM EST Amenorrhea documented in this encounter Results * CHLAMYDIA/GC BY TMA (08/18/2019 9:36 AM EST) Chlamydia trachomatis Not Detected Not Detected 08/19/2019 5:19 AM EST [facility]REFERRED [facility] Neisseria gonorrhoeae Not Detected Not Detected 08/19/2019 5:19 AM EST [facility] Urine 08/18/2019 9:36 AM EST 08/18/2019 9:36 AM EST Narrative [facility] - 08/19/2019 5:19 AM EST Testing methodology is arboriculture teacher mediated amplification (TMA) using the Aptima Combo 2 assay from [employer] A negative result does not completely rule out a Chlamydia trachomatis or Neisseria gonorrhoeae infection due to potential inhibitors or levels present below the limit of detection by this assay. ??Results are dependent on proper collection and transport of specimen. This test is indicated for medical purposes only and should not be used for legal or forensic purposes. The performance characteristics of this assay were validated by the testing laboratory. This assay is FDA cleared to test the following specimens: clinician-collected endocervical, vaginal, male urethral swab specimens, rectal swabs, and throat/pharyngeal swabs; patient collected vaginal specimens within a clinic setting; Thin Prep Specimens in PreservCyt Solution; and first-stream, unpreserved male and female urine specimens. Detailed methodology is available upon request. Ketan Fonseca MD MICROBIOLOGY - GENERAL ORDERAB LES Final Result Performing Organization Address [facility] de Phone Number [facility] [address] [place] [address] , [place] [address] * SYPHILIS SCREEN WITH REFLEX RPR QUANT (08/18/2019 9:36 AM EST) Trep Ab Index 0.04 <=0.99 Index Value 08/18/2019 6:14 PM EST [facility] Comment: < 1.00 - Non-Reactive ?? >=1.00 - Reactive NOTE: ??All reactive results will be reflexed to Quantitative Non-Treponemal(RPR)test. ?? Blood VENOUS BLOOD / Unknown Venipuncture / Unknown 08/18/2019 9:36 AM EST 08/18/2019 9:36 AM EST Ketan Fonseca MD CHEMISTRY ORDERABLES Final Res ult Performing Organization Address [facility] de Phone Number [facility] [address] [place] [address] , [place] [address] * HUMAN CHORIONIC GONADOTROPIN QUANTITATIVE (08/18/2019 9:36 AM EST) Hcg Quant <1 mIU/mL 08/18/2019 4:4 7 PM EST PREFERRED LAB [facility], [facility] Blood VENOUS BLOOD / Unknown Venipuncture / Unknown 08/18/2019 9:36 AM EST 08/18/2019 9:36 AM EST Narrative PREFERRED [facility], [facility] - 08/18/2019 4:47 PM EST < 5 ??mIU/mL ?? Negative 5-25 mIU/mL ?? Indeterminate > 25 mIU/mL ?? Positive Values between 5 and 25 mIU/mL are indeterminate for . Consider confirming with repeat test in 48-72 hours. Values in should double every 3 days for the first 6 weeks. Ingestion of silvestre doses of biotin (>5 mg/day) taken within 8 hours of drawing blood sample can interfere with this immunoassay test. Ketan Fonseca MD CHEMISTRY ORDERABLES Final Res ult Performing Organization Address [facility] de Phone Number [employer] [address] , [place] [address] * ACUTE HEPATITIS PANEL (08/18/2019 9:36 AM EST) Pathologist [facility] Hep Bs Ag Non-Reacti ve Non-Reacti ve 08/18/2019 6:16 PM EST PREFERRED LAB [facility], [facility] Hep B Core IgM Non-Reacti ve Non-Reacti ve 08/18/2019 6:16 PM EST PREFERRED LAB [facility], [facility] Hep A IgM Non-Reacti ve Non-Reacti ve 08/18/2019 6:16 PM EST PREFERRED LAB [facility], [facility] Hep C Ab Non-Reacti ve Non-Reacti ve 08/18/2019 6:16 PM EST PREFERRED LAB [facility], [facility] Blood VENOUS BLOOD / Unknown Venipuncture / Unknown 08/18/2019 9:36 AM EST 08/18/2019 9:36 AM EST Ketan Fonseca MD CHEMISTRY ORDERABLES Final Res ult Performing Organization Address [facility] de Phone Number [facility], [address] , [place] [address] documented in this encounter Visit Diagnoses Diagnosis Vaginal discharge- Primary Leukorrhea, not specified as infective Amenorrhea Absence of menstruation Insomnia, persistent Persistent disorder of initiating or maintaining sleep Major depressive disorder, recurrent episode, mild (HCC) Major depressive disorder, recurrent episode, mild documented in this encounter Discontinued Medications Medication Sig Discontinue Reason Start Date End Da te amitriptyline (ELAVIL) 25 mg Oral Tablet Take 25 mg by mouth nightly. Cancelled by MD 08/02/2018 08/18/2019 documented as of this encounter Care Teams Semiconductor Wafers Etch Operator Relationship Specialty Start Date End Date Maryann Figueroa APRN [address] [place], [place] [address] PCP - General Nurse Practitioner-Family 05/21/17 documented as of this encounter
--- OUTSIDE RECORDS SUMMARY | 2024-05-13 22:30 | XMS_ITS | Encounter Summary ---
Author Organization [place] [address] Care Team Providers Care Junior Copywriter Name Role Phone Unavailable Primary Care Provider Unavailabl e Reason for Visit * Reason Comments Hand Injury left thumb injury fr om trampoline Encounter Details Date Type Department Care Team (Late st Contact Info) Description 12/02/2016 8:53 PM EDT - 12/02/2016 10:03 PM EDT Emergency [facility] [address] [place] [address] Derrick Stewart MD [address] [place] [address] Contusion of left thumb without damage to nail, initial encounter (Primary Dx) Discharge Disposition: Home or Self Care Social History Tobacco Use Types Packs/Day Years Used Date Smoking Tobacco: Never Comments No Sex and Gender Information Value Date Recorded Sex Assigned at Not on file Legal Sex Female 6:55 AM EDT Gender Identity Not on file Sexual Orientation Not on file documented as of this encounter Last Filed Vital Signs Vital Sign Reading Time Taken Comments Blood Pressure 112/60 12/02/2016 8:29 PM EDT Pulse 82 12/02/2016 8:29 PM EDT Temperature 36.9 ??C (98.4 ??F) 12/02/2016 8:29 PM ED T Respiratory Rate - - Oxygen Saturation 100% 12/02/2016 8:29 PM EDT Inhaled Oxygen Concentration - - Weight 49.6 kg (109 lb 4 oz) 12/02/2016 8:29 PM EDT Height - - Body Mass Index - - documented in this encounter Discharge Instructions * Discharge Instructions* Derrick Stewart MD - 12/02/2016 9:53 PM EDT Images from the original note were not included. ice, elevate, wear Pedro wrap for comfort. Meds as directed.Patient discharged in stable condition. Return for any worsening of symptoms or any other problems or concerns. Contusion A contusion is a deep bruise. Contusions happen when an injury causes bleeding under the skin. Symptoms of bruising include pain, swelling, and discolored skin. The skin may turn blue, purple, or yellow. HOME CARE ?? Rest the injured area. ?? If told, put ice on the injured area. Put ice in a plastic bag. Place a towel between your skin and the bag. Leave the ice on for 20 minutes, 2-3 times per day. ?? If told, put light pressure (compression) on the injured area using an elastic bandage. Make sure the bandage is not too tight. Remove it and put it back on as told by your doctor. ?? If possible, raise (elevate) the injured area above the level of your heart while you are sitting or lying down. ?? Take [id number] and prescription medicines only as told by your doctor. GET HELP IF: ?? Your symptoms do not get better after several days of treatment. ?? Your symptoms get worse. ?? You have trouble moving the injured area. GET HELP RIGHT AWAY IF: ?? You have very bad pain. ?? You have a loss of feeling (numbness) in a hand or foot. ?? Your hand or foot turns pale or cold. This information is not intended to replace advice given to you by your health care provider. Make sure you discuss any questions you have with your health care provider. Document Released: 11/26/2008 Document Revised: 02/29/2016 Document Reviewed: 10/26/2015 [employer] Interactive Patient Education ??2016 [employer] documented in this encounter Medications at Time of Discharge ibuprofen (ADVIL;MOTRIN) 600 mg Oral Tablet Take 1 Tab by mouth every 8 hours as needed for Pain for up to 21 doses. 21 Tab 12/02/2016 12/07/2016 documented as of this encounter Ordered Prescriptions Prescription Sig Dispense Quantity Refills Last Filled Start Date End Date ibuprofen (ADVIL;MOTRIN) 600 mg Oral Tablet Take 1 Tab by mouth every 8 hours as needed for Pain for up to 21 doses. 21 Tab 12/02/2016 12/07/2016 documented in this encounter Discharge Disposition Disposition Code Departure Means Destination Home or Self Penitentiary documented in this encounter ED Notes * Juanita Wells RN - 12/02/2016 9:50 PM EDT PEDRO wrap applied to L hand/ wrist * Derrick Stewart MD - 12/02/2016 8:17 PM EDT Images from the original note were not included. Chief Complaint Patient presents with ??? Hand Injury left thumb injury from trampoline HPI Comments: 11-year-old previously healthy white female, right-hand dominant, presents complaining of pain and injury to her left thumb region. Patient states she and a friend were jumping on a trampoline when the friend did a flip and accidentally kicked the patient in her left thumb region withher foot. She complains of sharp pain in the base of her left thumb, and over the palmar surface base of the left thumb region. No paresthesias to the left hand or digits. No left wrist pain. Increased pain with movement. No other problems or concerns were identified Past medical history--previously healthy Right-hand dominant Immunizations are up-to-date Patient is a 11 y.o. female presenting with hand injury. History provided by: Patient Hand Injury Associated symptoms: no nausea and no vomiting No Known Allergies Home Medications: Prior to Admission medications Not on File Past Medical History: No past medical history on file. Social History: reports that she has never smoked. She does not have any smokeless tobacco history on file. Family History: No family history on file. Surgical History: No past surgical history on file. Review of Systems Constitutional: Negative for diaphoresis. Gastrointestinal: Negative for nausea and vomiting. Musculoskeletal: Left thumb pain Skin: Negative for wound. Neurological: Negative for numbness. All other systems reviewed and are negative. Blood pressure 112/60, pulse 82, temperature 98.4 ??F (36.9 ??C), temperature source Oral, weight 109 lb 4 oz (49.6 kg), SpO2 100 %. Physical Exam Constitutional: She appears well-developed and well-nourished. She is active. No distress. preadolescent white female in no apparent distress HENT: Mouth/Throat: Oropharynx is clear. Eyes: Conjunctivae are normal. Cardiovascular: Normal rate and regular rhythm. Pulses are strong. Pulmonary/Chest: Effort normal. Musculoskeletal: Hands: Neurological: She is alert. Skin: Skin is warm and dry. Capillary refill takes less than 3 seconds. No rash noted. Nursing note and vitals reviewed. Procedures Radiology/EKG/Labs: Results for orders placed or performed during the hospital encounter of 12/02/16 XR HAND LEFT PA LATERAL AND OBLIQUE Narrative XR HAND LEFT PA LATERAL AND OBLIQUE, 12/02/2016 9:12 PM CLINICAL HISTORY: Female patient aged 11 years. Hand injury. PROCEDURE COMMENTS: Routine radiographs of the hand and fingers per protocol. Total of 3 images. FINDINGS: No fracture or dislocation. Joint spaces are relatively well maintained. Impression No acute bony abnormality. ED Course: Appropriate laboratory and radiology studies reviewed Patient was seen and evaluated. Plain radiographs were obtained, with results as noted above. Patient presents with history and physical exam consistent with a contusion to her left thumb. She will have an Pedro wrap applied to her left hand and thenar eminence region. [facility] on symptomatic treatment and a prescription for ibuprofen. Mother agrees with this plan of care ED Clinical Impression: #1 left thumb contusion Critical Care time Condition at Discharge/Transfer from Department: Stable This chart was completed using voice recognition technology and may contain unintended errors Derrick Stewart MD 12/03/16 0030 documented in this encounter Plan of Treatment Not on file documented as of this encounter Procedures Procedure Name Priority Date/Time Associated Diagnosis Comments XR HAND LEFT PA LATERAL AND OBLIQUE MARIA LUZ 12/02/2016 9:12 PM EDT documented in this encounter Results * XR HAND LEFT PA LATERAL AND OBLIQUE (12/02/2016 9:12 PM EDT) Anatomical Region Laterality Modality Hand Radiographic Ania ging 12/02/2016 9:12 PM EDT Impressions 12/02/2016 9:18 PM EDT No acute bony abnormality. Narrative 12/02/2016 9:18 PM EDT XR HAND LEFT PA LATERAL AND OBLIQUE, ??12/02/2016 9:12 PM CLINICAL HISTORY: ??Female patient aged 11 years. Hand injury. PROCEDURE COMMENTS: Routine radiographs of the hand and fingers per protocol. Total of 3 images. FINDINGS: ? No fracture or dislocation. ??Joint spaces are relatively well maintained. Procedure Note William Walsh MD - 12/02/2016 XR HAND LEFT PA LATERAL AND OBLIQUE, 12/02/2016 9:12 PM CLINICAL HISTORY: Female patient aged 11 years. Hand injury. PROCEDURE COMMENTS: Routine radiographs of the hand and fingers perprotocol. Total of 3 images. FINDINGS: No fracture or dislocation. Joint spaces are relatively well maintained. IMPRESSION: No acute bony abnormality. us Derrick Stewart MD [facility] DI[facility]NOST[facility] Final Result documented in this encounter Visit Diagnoses Diagnosis Contusion of left thumb without damage to nail, initial encounter- Primary documented in this encounter
--- OUTSIDE RECORDS SUMMARY | 2024-05-13 22:30 | XMS_ITS | Encounter Summary ---
Author Organization [place] [address] Care Team Providers Care Brazing Furnace Feeder Name Role Phone Unavailable Primary Care Provider Unavailabl e Encounter Details Date Type Department Care Team (Late st Contact Info) Description 04/04/2007 12:15 PM EDT - 04/04/2007 2:37 PM EDT Hospital Encounter [facility]TT Generic, Historical Provider Social History Tobacco Use Types Packs/Day Years Used Date Smoking Tobacco: Never Assessed Comments Unknown Sex and Gender Information Value Date Recorded Sex Assigned at Not on file Legal Sex Female 6:55 AM EDT Gender Identity Not on file Sexual Orientation Not on file documented as of this encounter ED Notes * Unknown, Unknown - 10/24/2009 10:00 AM EDT documented in this encounter Plan of Treatment Not on file documented as of this encounter Visit Diagnoses Not on filedocumented in this encounter
--- OUTSIDE RECORDS SUMMARY | 2024-05-13 22:30 | XMS_ITS | Encounter Summary ---
Author Organization [place] [address] Care Team Providers Care Employee Benefits Insurance Agent Name Role Phone Maryann Figueroa APRN Primary Care Provider [phone] Reason for Visit * Reason Onset Date Comments Immunizations 01/08/2020 grandmother woul d like to confirm that pt has had the first dose of meningitis b and when is she due for the 2nd dose? Encounter Details Date Type Department Care Team (Late st Contact Info) Description 01/08/2020 Telephone SEP Tahir BARILLAS [address] [place] [address] Maryann Figueroa APRN [address] [facility] [place] [address] Immunizations (grandmother would like to confirm that pt has had the first dose of meningitis b and when is she due for the 2nd dose?) Social History Tobacco Use Types Packs/Day Years [...] have Coronavirus / COVID-19? No / Unsure 02/18/2020 12:42 PM EDT documented as of this encounter Miscellaneous Notes * Telephone Encounter - Ivy Aldana RMA - 01/11/2020 11:44 AM EDT Called and left detail voice mail about vaccine on Grandmothers phone . Pt is UTD until June when she turns 15 yrs old * Telephone Encounter - Jackie Aponte - 01/08/2020 3:56 PM EDT grandmother would like to confirm that pt has had the first dose of meningitis b and when is she due for the 2nd dose? Please call to advise. documented in this encounter Plan of Treatment Not on file documented as of this encounter Goals Goal Patient Goal Type Associated Problems Recent Progress Patient-Stated? Author Stay Tobacco Free Lifestyle No Shakira Light CCMA documented as of this encounter Visit Diagnoses Not on filedocumented in this encounter Care Teams Employee Benefits Insurance Agent Relationship Specialty Start Date End Date Maryann Figueroa APRN [address] [place], [place] [address] PCP - General Nurse Practitioner-Family 05/21/17 documented as of this encounter
--- OUTSIDE RECORDS SUMMARY | 2024-05-13 22:30 | XMS_ITS | Encounter Summary ---
Author Organization [place] [address] Care Team Providers Care Machining And Assembly Supervisor Name Role Phone Maryann Figueroa APRN Primary Care Provider [phone] Reason for Visit * Reason Comments Otalgia BILATERAL EAR Encounter Details Date Type Department Care Team (Late st Contact Info) Description 12/29/2018 11:20 AM EDT Office Visit [facility] [place] [facility] [place] [address] Ketan Fonseca MD [address] [place] [address] Acute bacterial sinusitis (Primary Dx) Social History Tobacco Use Types [...] Sign Reading Time Taken Comments Blood Pressure 120/70 12/29/2018 11:27 AM EDT Pulse 74 12/29/2018 11:27 AM EDT Temperature 36.7 ??C (98 ??F) 12/29/2018 11:27 AM EDT Respiratory Rate 18 12/29/2018 11:27 AM EDT Oxygen Saturation 98% 12/29/2018 11:27 AM EDT Inhaled Oxygen Concentration - - Weight 62.1 kg (137 lb) 12/29/2018 11:27 AM EDT Height 165.1 cm (5' 5 ) 12/29/2018 11:27 AM EDT Body Mass Index 22.8 12/29/2018 11:27 AM EDT Body Mass Index Percentile 80.69% 12/29/2018 11: 27 AM EDT Growth Chart: [facility] (Girls, 2- 20 Years) documented in this encounter Ordered Prescriptions Prescription Sig Dispense Quantity Refills Last Filled Start Date End Date azithromycin (ZITHROMAX) 250 mg Oral TabletIndications: Acute bacterial sinusitis Take 2 tablets (500 mg) on Day 1, followed by 1 tablet (250 mg) once daily on Days 2 through 5. 6 Tab 12/29/2018 9 documented in this encounter Progress Notes * Ketan Fonseca MD - 12/29/2018 11:20 AM EDT Assessment Diagnoses and all orders for this visit: Acute bacterial sinusitis - azithromycin (ZITHROMAX) 250 mg Oral Tablet; Take 2 tablets (500 mg) on Day 1, followed by 1 tablet (250 mg) once daily on Days 2 through 5. Dispense: 6 Tab; Refill: 0 Progress Note: Vitals: 12/29/18 1127 BP: 120/70 Pulse: 74 Resp: 18 Temp: 98 ??F (36.7 ??C) SpO2: 98% Weight: 137 lb (62.1 kg) Height: 5' 5 (1.651 m) SUBJECTIVE: Chief Complaint Patient presents with ??? Otalgia BILATERAL EAR HPI: Bilateral ear pain sinus pressure for about 1 week. No fevers chills nausea or vomiting. Review of Systems Constitutional: Negative. Negative for activity change, fatigue, fever and unexpected weight change. HENT: Positive for ear discharge, ear pain and sinus pressure. Negative for trouble swallowing. Eyes: Negative. Negative [...] and suicidal ideas. Thepatient is not nervous/anxious. OBJECTIVE: Physical Exam Constitutional: She is oriented to person, place, and time. She appears well- developed and well-nourished. No distress. HENT: Head: Normocephalic and atraumatic. Right Ear: External ear normal. Tympanic membrane is erythematous. Left Ear: External ear normal. Tympanic membrane is erythematous. Mouth/Throat: No oropharyngeal exudate. Eyes: Pupils are equal, round, and reactive to light. Conjunctivae are normal. Right eye exhibits no discharge. Left eye exhibits no discharge. No scleral icterus. Neck: Normal range of motion. Neck supple. No thyromegaly present. Cardiovascular: Normal rate, regular rhythm, normal heart sounds and intact distal pulses. Exam reveals no gallop. No murmur heard. Pulmonary/Chest: Effort normal and breath sounds normal. No respiratory distress. She has no wheezes. She has no rales. She exhibits no tenderness. Abdominal: Soft. Bowel sounds are normal. She exhibits no mass. There is no tenderness. There is norebound and no guarding. Musculoskeletal: Normal range of motion. She exhibits no edema or tenderness. Lymphadenopathy: She has no cervical adenopathy. Neurological: She is alert and oriented to person, place, and time. Skin: Skin is warm and dry. She is not diaphoretic. Vitals reviewed. documented in this encounter Plan of Treatment Not on file documented as of this encounter Goals Goal Patient Goal Type Associated Problems Recent Progress Patient-Stated? Author Stay Tobacco Free Lifestyle No Shakira Light CCMA documented as of this encounter Visit Diagnoses Diagnosis Acute bacterial sinusitis- Primary Acute sinusitis, unspecified documented in this encounter Care Teams Machining And Assembly Supervisor Relationship Specialty Start Date End Date Maryann Figueroa APRN [address] [place] [address] PCP - General Nurse Practitioner-Family 05/21/17 documented as of this encounter
--- OUTSIDE RECORDS SUMMARY | 2024-05-13 22:30 | XMS_ITS | Encounter Summary ---
Author Organization [place] [address] Care Team Providers Care Early Childhood Coordinator Name Role Phone Unavailable Primary Care Provider Unavailabl e Encounter Details Date Type Department Care Team (Late st Contact Info) Description 2004 4:52 AM EST - 2004 6:35 AM EST Hospital Encounter [facility] E/D RED [facility] Isael Ribeiro MD Social History Tobacco Use Types Packs/Day Years [...]
--- OUTSIDE RECORDS SUMMARY | 2024-05-13 22:30 | XMS_ITS | Encounter Summary ---
Author Organization [place] [address] Care Team Providers Care Track Helper Name Role Phone Maryann Figueroa APRN Primary Care Provider [phone] Reason for Visit * Reason Comments Insomnia 6 week f/u, still no t sleeping, tenex worked for 1 week then wore off Encounter Details Date Type Department Care Team (Latest Contact Info) Description 07/02/2017 4:00 PM EST Office Visit SEP Tahir [address] [place] [address] Maryann Figueroa APRN [address] [place], [place] [id number] Insomnia, persistent; Difficulty concentrating Social History Tobacco Use Types Packs/Day Years [...] Reading Time Taken Comments Blood Pressure 110/68 07/02/2017 3:54 PM EST Pulse 99 07/02/2017 3:54 PM EST Temperature 36.9 ??C (98.5 ??F) 07/02/2017 3:54 PM ES T Respiratory Rate 16 07/02/2017 3:54 PM EST Oxygen Saturation 99% 07/02/2017 3:54 PM EST Inhaled Oxygen Concentration - - Weight 54 kg (119 lb) 07/02/2017 3:54 PM EST Height 165.1 cm (5' 5 ) 07/02/2017 3:54 PM EST Body Mass Index 19.8 07/02/2017 3:54 PM EST Body Mass Index Percentile 64.28% 07/02/2017 3:5 4 PM EST Growth Chart: [facility] (Girls, 2- 20 Years) documented in this encounter Ordered Prescriptions Prescription Sig Dispense Quantity Refills Last Filled Start Date End Date guanFACINE (TENEX) 1 mg Oral TabletIndications:I nsomnia, persistent,Difficul ty concentrating Take 1 Tab by mouth 2 times daily. 60 Tab 2 07/02/2017 01/16/2018 documented in this encounter Progress Notes * Maryann Figueroa APRN - 07/02/2017 4:00 PM EST Assessment Diagnoses and all orders for this visit: Insomnia, persistent Overview: Develop nighttime routine, less electronics. con't melatonin. Orders: - guanFACINE (TENEX) 1 mg Oral Tablet; Take 1 Tab by mouth 2 times daily. Dispense: 60 Tab; Refill:2 Difficulty concentrating Overview: Increase tenex to twice a day. If no daytime improvement should follow-up in 4 weeks to discuss further treatment. Given western forms to get completed before next appointment. Orders: - guanFACINE (TENEX) 1 mg Oral Tablet; Take 1 Tab by mouth 2 times daily. Dispense: 60 Tab; Refill:2 Progress Note: Vitals: 07/02/17 1554 BP: 110/68 Pulse: 99 Resp: 16 Temp: 98.5 ??F (36.9 ??C) TempSrc: Temporal SpO2: 99% Weight: 119 lb (54 kg) Height: 5' 5 (1.651 m) Chief Complaint Patient presents with ??? Insomnia 6 week f/u, still not sleeping, tenex worked for 1 week then wore off HPI: 6 wk follow-up on start up of tenex and melatonin. Initially helped but no longer feels effective. Hard time falling asleep, no trouble staying asleep. Does admit to staying up late on phone with friends/ watching youtube video's. Still having a hard-time getting through school. In 7th grade and not making passing grades. Sts the content doesn't hold her attention - can't concentrate on test/homework, can't focus, some social anxiety - doesn't like being around people. Denies depressive sx. Review of Systems Constitutional: Negative. Respiratory: Negative. Cardiovascular: Negative. Gastrointestinal: Negative. Musculoskeletal: Negative. Psychiatric/Behavioral: Positive for decreased concentration and sleep disturbance. Physical Exam Constitutional: She appears well-developed and well-nourished. She is active. HENT: Mouth/Throat: Mucous membranes are moist. Eyes: Pupils are equal, round, and reactive to light. Neck: Normal range of motion. Neck supple. No neck adenopathy. Cardiovascular: Normal rate and regular rhythm. No murmur heard. Pulmonary/Chest: Effort normal and breath sounds normal. No stridor. She has no wheezes. She has norhonchi. She has no rales. Abdominal: Soft. Bowel sounds are normal. There is no tenderness. Neurological: She is alert. Skin: Skin is warm and dry. Capillary refill takes less than 3 seconds. No rash noted. See time date stamps in the EMR for other pertient history components reviewed as part of today's encounter. [facility] Documentation Medication Compliance: Compliant all the time Understanding of Current Medications: Good Medication Compliance Barriers: None or N/A Self-Management Ability: Good Willingness to Adopt Healthy Behaviors: Good Potential Barriers to completing treatment plans today: No significant barriers [facility] Flowsheet was completed/reviewed as part of today's visit. Educated patient and grandparent regarding the diagnosis, medication/treatment, goals, self-management tools and instructions based on their care plan. They verbalized understanding of the education given on the After Visit Summary [AVS] for today's visit. A copy of the AVS was provided either in writing and/or via [employer]. A new medicine was prescribed during this [...] Patient Instructions - Maryann Figueroa APRN - 07/02/2017 4:00 PM EST May increase Melatonin to 6mg at night. Increase Tenex to twice a day Get the western forms completed before next appointment. documented in this encounter Plan of Treatment Not on file documented as of this encounter Goals Goal Patient Goal Type Associated Problems Recent Progress Patient-Stated? Author Stay Tobacco Free Lifestyle No Shakira Light CCMA documented as of this encounter Visit Diagnoses Diagnosis Insomnia, persistent Persistent disorder of initiating or maintaining sleep Difficulty concentrating Other general symptoms documented in this encounter Discontinued Medications Medication Sig Discontinue Reason Start Date End Da te metroNIDAZOLE (FLAGYL) 500 mg Oral Tablet Take 500 mg by mouth every 8 hours. DELETE-Therapy completed 07/02/2017 penicillin v potassium (VEETID) 250 mg Oral Tablet Take 250 mg by mouth every 8 hours. DELETE-Therapy completed 07/02/2017 HYDROcodone-acetaminop hen (NORCO) 5-325 mg Oral Tablet Take 1 Tab by mouth every 6 hours as needed for Pain. DELETE-Therapy completed 07/02/2017 guanFACINE (TENEX) 1 mg Oral TabletIndications:Inso mnia, persistent Take 1 Tab by mouth nightly. Reorder 05/21/2017 07/02/2017 documented as of this encounter Care Teams Track Helper Relationship Specialty Start Date End Date Maryann Figueroa APRN [address] [place], [place] [address] PCP - General Nurse Practitioner-Family 05/21/17 documented as of this encounter
--- OUTSIDE RECORDS SUMMARY | 2024-05-13 22:30 | XMS_ITS | Encounter Summary ---
Author Organization [place] [address] Care Team Providers Care Negotiator Sales Name Role Phone Maryann Figueroa APRN Primary Care Provider [phone] Reason for Visit * Reason Comments Immunizations HEP-A / GARDASIL Encounter Details Date Type Department Care Team (Late st Contact Info) Description 11/21/2017 10:40 AM EDT Clinical Support HOWARD BARILLAS [address] [place] [address] Cindy Smart E [address] [place] [address] Need for HPV vaccine (Primary Dx); Need for hepatitis A vaccination Social History Tobacco Use Types Packs/Day Years [...] as of this encounter Visit Diagnoses Diagnosis Need for HPV vaccine- Primary Need for prophylactic vaccination and inoculation against other viral diseases Need for hepatitis A vaccination Need for prophylactic vaccination and inoculation against viral hepatitis documented in this encounter Orders Immunization/Injection Count Last Ordered Date First Ordered Date HEPATITIS A VACCINE PED ADOL 2 DOSE IM 1 HPV VACCINE 9 VALENT 1 11/21/2017 documented in this encounter Care Teams Negotiator Sales Relationship Specialty Start Date End Date Maryann Figueroa APRN [address] [place], [place] [address] PCP - General Nurse Practitioner-Family 05/21/17 documented as of this encounter
--- OUTSIDE RECORDS SUMMARY | 2024-05-13 22:30 | XMS_ITS | Encounter Summary ---
Author Organization [place] [address] Care Team Providers Care Seals Engraver Name Role Phone Maryann Figueroa APRN Primary Care Provider Reason for Visit * Reason Comments Non-healing Wound on right foot, on an d off for 2 years, worsening over the last 3 months Encounter Details Date Type Department Care Team (Late st Contact Info) Description 02/23/2020 2:20 PM EDT Office Visit SEP Tahir [address] [place] [address] Maryann Figueroa APRN [address] [facility] [place] [address] Athlete's foot, right (Primary Dx) Social History Tobacco Use Types [...] PM EDT documented as of this encounter Last Filed Vital Signs Vital Sign Reading Time Taken Comments Blood Pressure 112/68 02/23/2020 2:33 PM EDT Pulse 91 02/23/2020 2:33 PM EDT Temperature 36.9 ??C (98.5 ??F) 02/23/2020 2:33 PM ED T Respiratory Rate 16 02/23/2020 2:33 PM EDT Oxygen Saturation 98% 02/23/2020 2:33 PM EDT Inhaled Oxygen Concentration - - Weight 60.3 kg (133 lb) 02/23/2020 2:33 PM EDT Height 167.6 cm (5' 6 ) 02/23/2020 2:33 PM EDT Body Mass Index 21.47 02/23/2020 2:33 PM EDT Body Mass Index Percentile 64.59% 02/23/2020 2:3 3 PM EDT Growth Chart: [facility] (Girls, 2- 20 Years) documented in this encounter Ordered Prescriptions Prescription Sig Dispense Quantity Refills Last Filled Start Date End Date fluconazole (DIFLUCAN) 150 mg Oral TabletIndications: Athlete's foot, right 1 tablet now and repeat in one week. 2 Tab 02/23/2020 0 nystatin (MYCOSTATIN) Top PowderIndications: Athlete's foot, right Apply topically 2 times daily for 14 days. 30 g 1 02/23/2020 0 ketoconazole (NIZORAL) 2 % Top CreamIndications:A thlete's foot, right Apply topically daily for 14 days. 30 g 1 02/23/2020 0 documented in this encounter Progress Notes * Maryann Figueroa APRN - 02/23/2020 2:20 PM EDT Assessment Diagnoses and all orders for this visit: Athlete's foot, right - ketoconazole (NIZORAL) 2 % Top Cream; Apply topically daily for 14 days. Dispense: 30 g; Refill: 1 - nystatin (MYCOSTATIN) Top Powder; Apply topically 2 times daily for 14 days. Dispense: 30 g; Refill: 1 - fluconazole (DIFLUCAN) 150 mg Oral Tablet; 1 tablet now and repeat in one week. Dispense: 2 Tab; Refill: 0 athletes foot. Discussed home care, skin care and infection prevention techniques. Progress Note: Vitals: 02/23/20 1433 BP: 112/68 Pulse: 91 Resp: 16 Temp: 98.5 ??F (36.9 ??C) TempSrc: Temporal SpO2: 98% Weight: 133 lb (60.3 kg) Height: 5' 6 (1.676 m) SUBJECTIVE: Chief Complaint Patient presents with ??? Non-healing Wound on right foot, on and off for 2 years, worsening over the last 3 months HPI: rash to bottom of right foot off and on for two months, skin gets thick and peels. Has been more active these past two months. Review of Systems Constitutional: Negative for fever. HENT: Negative for congestion. Respiratory: Negative for cough, shortness of breath and wheezing. Cardiovascular: Negative for chest pain, palpitations and leg swelling. Gastrointestinal: Negative for abdominal pain, constipation, diarrhea and vomiting. Skin: Positive for rash. Negative for pallor and wound. Hematological: Negative for adenopathy. Does not bruise/bleed easily. OBJECTIVE: Physical Exam Constitutional: Appearance: She is well-developed. HENT: Head: Normocephalic and atraumatic. Eyes: Pupils: Pupils are equal, round, and [...] or rebound. Musculoskeletal: Comments: Cast on left wrist. Lymphadenopathy: Cervical: No cervical adenopathy. Skin: General: Skin is warm and dry. Coloration: Skin is not pale. Findings: Rash (skin peeling bottom of right foot) present. No erythema. Neurological: Mental Status: She is alert and oriented to person, place, and time. Cranial Nerves: No cranial nerve deficit. Psychiatric: Behavior: Behavior normal. Thought Content: Thought content normal. Judgment: Judgment normal. documented in this encounter Miscellaneous Notes * Patient Instructions - Maryann Figueroa APRN - 02/23/2020 2:20 PM EDT Images from the original note were not included. Patient Education Athlete's Foot Athlete's foot (tinea pedis) is a fungal infection of the skin on your feet. It often occurs on theskin that is between or underneath your toes. It can also occur on the soles of your feet. Symptomsinclude itchy or white and flaky areas on the skin. The infection can spread from person to person (is contagious). It can also spread when a person's bare feet come in contact with the fungus on shower floors or on items such as shoes. Follow these instructions at home: Medicines ?? Apply or take [id number] and prescription medicines only as told by your doctor. ?? Apply your antifungal medicine as told by your doctor. Do not stop using the medicine even if your feet start to get better. Foot care ?? Do not scratch your feet. ?? Keep your feet dry: ? Wear cotton or wool socks. Change your socks every day or if they become wet. ? Wear shoes that allow air to move around, such as sandals or canvas tennis shoes. ?? Wash and dry your feet: ? Every day or as told by your doctor. ? After exercising. ? Including the area between your toes. General instructions ?? Do not share any of these items that touch your feet: ? Towels. ? Shoes. ? Nail clippers. ? Other personal items. ?? Protect your feet by wearing sandals in wet areas, such as locker rooms and shared showers. ?? Keep all follow-up visits as told by your doctor. This is important. ?? If you have diabetes, keep your blood sugar under control. Contact a doctor if: ?? You have a fever. ?? You have swelling, pain, warmth, or redness in your foot. ?? Your feet are not getting better with treatment. ?? Your symptoms get worse. ?? You have new symptoms. Summary ?? Athlete's foot is a fungal infection of the skin on your feet. ?? Symptoms include itchy or white and flaky areas on the skin. ?? Apply your antifungal medicine as told by your doctor. ?? Keep your feet clean and dry. This information is not intended to replace advice given to you by your health care provider. Make sure you discuss any questions you have with your health care provider. Document Released: 11/26/2008 Document Revised: 03/31/2018 Document Reviewed: 03/31/2018 [employer] Interactive Patient Education ?? 2020 [employer]. documented in this encounter Plan of Treatment Not on file documented as of this encounter Goals Goal Patient Goal Type Associated Problems Recent Progress Patient-Stated? Author Stay Tobacco Free Lifestyle No Shakira Light CCMA documented as of this encounter Procedures Procedure Name Priority Date/Time Associated Diagnosis Comments SCANNED RADIOLOGY REPORT 03/09/2020 2:38 PM EDT documented in this encounter Results * SCANNED RADIOLOGY REPORT (03/09/2020 2:38 PM EDT) Anatomical Region Laterality Modality Other 03/09/2020 2:38 PM EDT us Unknown Unknown IMG DIAGNOSTIC IMAGING ORDERABLE S Final Result documented in this encounter Visit Diagnoses Diagnosis Athlete's foot, right- Primary Dermatophytosis of foot documented in this encounter Discontinued Medications Medication Sig Discontinue Reason Start Date End Da te sertraline (ZOLOFT) 25 mg Oral Tablet Take 25 mg by mouth daily. DELETE- Entered in Error 02/23/2020 documented as of this encounter Historical Medications * This list may reflect changes made after this encounter. sertraline (ZOLOFT) 50 mg Oral Tablet Take 50 mg by mouth daily. 04/04/2020 sertraline (ZOLOFT) 25 mg Oral Tablet Take 25 mg by mouth daily. 02/23/2020 traZODone (DESYREL) 50 mg Oral Tablet Take 50 mg by mouth nightly. 04/04/2020 added in this encounter Care Teams Seals Engraver Relationship Specialty Start Date End Date Maryann Figueroa APRN [address] [place] [address] PCP - General Nurse Practitioner-Family 05/21/17 documented as of this encounter
--- OUTSIDE RECORDS SUMMARY | 2024-05-13 22:30 | XMS_ITS | Encounter Summary ---
Author Organization [place] [address] Care Team Providers Care Combine Inspector Name Role Phone Maryann Figueroa APRN Primary Care Provider Reason for Visit * Reason Comments Well Child 12 Encounter Details Date Type Department Care Team (Late st Contact Info) Description 01/16/2018 1:40 PM EDT Office Visit [facility] [place] [address] [place] [address] Ketan Fonseca MD [address] [place] [address] Encounter for routine child health examination without abnormal findings (Primary Dx); Insomnia, persistent Social History Tobacco [...] Sign Reading Time Taken Comments Blood Pressure 108/60 01/16/2018 1:08 PM EDT Pulse 90 01/16/2018 1:08 PM EDT Temperature 36.7 ??C (98 ??F) 01/16/2018 1:08 PM EDT Respiratory Rate 18 01/16/2018 1:08 PM EDT Oxygen Saturation 98% 01/16/2018 1:08 PM EDT Inhaled Oxygen Concentration - - Weight 57.6 kg (127 lb) 01/16/2018 1:08 PM EDT Height 165.1 cm (5' 5 ) 01/16/2018 1:08 PM EDT Body Mass Index 21.13 01/16/2018 1:08 PM EDT Body Mass Index Percentile 73.55% 01/16/2018 1:0 8 PM EDT Growth Chart: [facility] (Girls, 2- 20 Years) documented in this encounter Ordered Prescriptions Prescription Sig Dispense Quantity Refills Last Filled Start Date End Date amitriptyline (ELAVIL) 25 mg Oral TabletIndications: Insomnia, persistent Take 1 Tab by mouth nightly for 180 days. 30 Tab 5 01/16/2018 9 documented in this encounter Progress Notes * Ketan Fonseca MD - 01/16/2018 1:40 PM EDT Assessment Diagnoses and all orders for this visit: Encounter for routine child health examination without abnormal findings Insomnia, persistent Overview: Develop nighttime routine, less electronics. con't melatonin. Orders: - amitriptyline (ELAVIL) 25 mg Oral Tablet; Take 1 Tab by mouth nightly for 180 days. Dispense: 30 Tab; Refill: 5 Progress Note: Vitals: 01/16/18 1308 BP: 108/60 Pulse: 90 Resp: 18 Temp: 98 ??F (36.7 ??C) SpO2: 98% Weight: 127 lb (57.6 kg) Height: 5' 5 (1.651 m) Chief Complaint Patient presents with ??? Well Child 12 HPI: Well Child: Well Child Visit 12-17 Year Old: SUBJECTIVE: 12 y.o. female brought in by mother for routine check up. Parental concerns: None. Review: Allergies: EPIC allergy list updated and can be noted below under ALLERGIES. Diet: None Sleep: none Behavioral problems: none Social interactions: none Activity level: normal Recent Illnesses: normal School performance: ok Sports/Extracurricular activities: None. Growth & Development: Writes at an age appropriate level: yes Reads at an age appropriate level: yes Doing math in school and doing well: yes Engages in conversation: yes Avoids drugs, tobacco, alcohol: yes Up to date on immunizations including Meningococcal and Gardisil: yes Females only: Has started menses: { was prescribed during this office visit. I did discuss the reason for prescribing this new medication. I also informed of possible likely side effects, but also encouraged them to read the medication insert that will accompany their prescription and encouraged them to discuss any questions about the insert with their pharmacist. I instructed them to call if having side effects or possible allergic reaction after taking. I also discussed the risk of stopping the medication or deviating from prescribing instructions. Dosing instructions are present on the AVSand they are aware. I inquired of any questions and answered accordingly. No Known Allergies No current outpatient prescriptions on file prior to visit. No current facility-administered medications on file prior to visit. No past medical history on file. Review of Systems Constitutional: Negative. Negative for [...] and suicidal ideas. Thepatient is not nervous/anxious. Physical Exam Constitutional: She is oriented to person, place, and time. She appears well- developed and well-nourished. No distress. HENT: Head: Normocephalic and atraumatic. Right Ear: External ear normal. Left Ear: External ear normal. Mouth/Throat: No oropharyngeal exudate. Eyes: Conjunctivae are normal. Pupils are equal, round, and reactive to light. Right eye exhibits no discharge. Left eye [...] warm and dry. She is not diaphoretic. Patient Active Problem List Diagnosis ??? Insomnia, persistent ??? Difficulty concentrating No past medical history on file. See time date stamps in the EMR for other pertient history components reviewed as part of today's encounter. [facility] Documentation [facility] Flowsheet was not completed/reviewed as part of today's visit. Educated patient regarding the diagnosis, medication/treatment, goals, self- management tools and instructions based on their care plan. They verbalized understanding of the education given on the After Visit Summary [AVS] for today's visit. A copy of the AVS was provided either in writing and/or via [employer]. A new medicine was prescribed during this [...] Primary Routine infant or child health check Insomnia, persistent Persistent disorder of initiating or maintaining sleep documented in this encounter Discontinued Medications Medication Sig Discontinue Reason Start Date End Da te guanFACINE (TENEX) 1 mg Oral TabletIndications:Insomni a, persistent,Difficulty concentrating Take 1 Tab by mouth 2 times daily. DELETE-Therapy completed 07/02/2017 01/16/2018 Melatonin (MELATIN) 3 mg Oral TabletIndications:Insomni a, persistent Take 1 Tab by mouth nightly. DELETE-Therapy completed 05/21/2017 01/16/2018 documented as of this encounter Care Teams Combine Inspector Relationship Specialty Start Date End Date Maryann Figueroa APRN [address] [place], [place] [address] PCP - General Nurse Practitioner-Family 05/21/17 documented as of this encounter
--- OUTSIDE RECORDS SUMMARY | 2024-05-13 22:30 | XMS_ITS | Encounter Summary ---
Author Organization [facility] [place] [address] Care Team Providers Care Order Processing Clerk Name Role Phone Maryann Figueroa APRN Primary Care Provider [phone] Encounter Details Date Type Department Care Team (Latest Contact Info) Description 02/18/2020 Travel Social History Tobacco Use Types Packs/Day [...] on filedocumented in this encounter Care Teams Order Processing Clerk Relationship Specialty Start Date End Date Maryann Figueroa APRN [address] [place] [address] PCP - General Nurse Practitioner-Family 05/21/17 documented as of this encounter
--- OUTSIDE RECORDS SUMMARY | 2024-05-13 22:30 | XMS_ITS | Encounter Summary ---
Author Organization [place] [address] Care Team Providers Care Spring Manufacturing Set Up Technician Name Role Phone Unavailable Primary Care Provider Unavailabl e Encounter Details Date Type Department Care Team (Late st Contact Info) Description 2004 12:01 AM EST - 2004 11:59 PM EST Hospital Encounter [facility] Kyle Lewis MD [address] [place] [address] Social History Tobacco Use Types Packs/Day Years [...]
--- OUTSIDE RECORDS SUMMARY | 2024-05-13 22:30 | XMS_ITS | Encounter Summary ---
Author Organization [place] [address] Care Team Providers Care Residential Sales Associate Name Role Phone Maryann Figueroa APRN Primary Care Provider [phone] Encounter Details Date Type Department Care Team (Late st Contact Info) Description 08/19/2019 Telephone [facility] [address] [place] [address] Maryann Figueroa APRN [address] [place] [address] Social History Tobacco Use Types Packs/Day [...] Refills Last Filled Start Date End Date ranitidine (ZANTAC) 150 mg Oral TabletIndications:G astroesophageal reflux disease without esophagitis Take 1 Tab by mouth nightly. 30 Tab 2 08/20/2019 09/23/2019 documented in this encounter Miscellaneous Notes * Telephone Encounter - Shakira Khan CCMA - 08/20/2019 10:21 AM EST pts mother aware. * Telephone Encounter - Maryann Figueroa APRN - 08/20/2019 9:47 AM EST Sent zantac to take nightly. Recommend head elevation while sleeping. * Telephone Encounter - Shakira Khan CCMA - 08/20/2019 9:07 AM EST Spoke with pt's mother. She states that the dentist advised her it is acid reflux/indigestion. Would you be willing to send an rx to the pharmacy for her? thanks * Telephone Encounter - Maryann Figueroa APRN - 08/19/2019 4:32 PM EST Two things.. is it enamel? If so, those are treatments the dentist provides. Does she brush her teeth and rinse her mouth out? Does she have acid reflux or indigestion? * Telephone Encounter - Shakira Khan CCMA - 08/19/2019 4:21 PM EST Please advise thanks * Telephone Encounter - Norah Virgen - 08/19/2019 2:04 PM EST Symptoms Call Who is reporting the symptoms: Femi Kumar What symptom(s) is the patient experiencing: Acid erosion on teeth How long have symptoms been present: 2 week(s) ago Has the patient been seen for this: Pt's mother states she was just seen yesterday, but she forgot to bring up that her dentist states she has bad acid erosion on her teeth, and needs medication for this. Has the patient tried anything to relieve the symptoms and did it help: N/A If pain, what level on scale 1-10 (10 being the greatest): No Pain Desired Outcome: Rx, Acid Grade And Center Marker medication Pharmacy & Location: [facility] [place] [address] [facility] [phone] Additional Notes: documented in this encounter Plan of Treatment Not on file documented as of this encounter Goals Goal Patient Goal Type Associated Problems Recent Progress Patient-Stated? Author Stay Tobacco Free Lifestyle No Shakira Light CCMA documented as of this encounter Visit Diagnoses Diagnosis Gastroesophageal reflux disease without esophagitis- Primary Esophageal reflux documented in this encounter Care Teams Residential Sales Associate Relationship Specialty Start Date End Date Maryann Fig[place] [address] [place] [address] PCP - General Nurse Practitioner-Family 05/21/17 documented as of this encounter
--- OUTSIDE RECORDS SUMMARY | 2024-05-13 22:30 | XMS_ITS | Encounter Summary ---
Author Organization [facility] [place] [address] Care Team Providers Care Spa Technician Name Role Phone Maryann Figueroa APRN Primary Care Provider [phone] Encounter Details Date Type Department Care Team (Latest Contact Info) Description 02/12/2020 Travel Social History Tobacco Use Types Packs/Day [...] have Coronavirus / COVID-19? No / Unsure 02/12/2020 3:08 PM EDT documented as of this encounter Plan of Treatment Not on file documented as of this encounter Goals Goal Patient Goal Type Associated Problems Recent Progress Patient-Stated? Author Stay Tobacco Free Lifestyle No Shakira Light CCMA documented as of this encounter Visit Diagnoses Not on filedocumented in this encounter Care Teams Spa Technician Relationship Specialty Start Date End Date Maryann Figueroa APRN [address] [place] [address] PCP - General Nurse Practitioner-Family 05/21/17 documented as of this encounter
[2024-05-13] MEDS: IBUPROFEN 400 MG TABLET 800 MG PO (22:45)
[2024-05-13] MEDS: ACETAMINOPHEN 500MG TAB 1000 MG PO (22:45)
--- NOTE | 2024-05-13 22:49 | PC.NURSE ---
pt medicated per MAR and ice pack place on left hand
[2024-05-13 23:00] VITALS: BP 138/78; PULSE 78; O2SAT 98
[2024-05-13] MEDS: OXYCODONE 5MG IMMEDIATE RELEASE TABLET 5 MG PO (23:03)
[2024-05-13] MEDS: LIDOCAINE 1% 10ML MDV 10 ML SUBCUT (23:04)
--- NOTE | 2024-05-13 23:04 | PC.NURSE ---
Md at bedside to do Lidocaine block and splint
--- NOTE | 2024-05-13 23:22 | XR_ITS ---
PROCEDURE INFORMATION: Exam: XR Left Hand Exam date and time: 05/13/2024 11:17 PM Age: 18 years old Clinical indication: Pain; Hand; Left; Additional info: Post splint TECHNIQUE: Imaging protocol: Radiologic exam of the left hand. Views: 1 or 2 views. COMPARISON: CR XR HAND LT MIN 3V 05/13/2024 10:29 PM FINDINGS: Bones/joints: Angulated 5th metacarpal fracture in plaster. Soft tissues: Normal. IMPRESSION: Angulated 5th metacarpal fracture in plaster.
[2024-05-13 23:40] VITALS: BP 138/78; PULSE 76; RESP 20; TEMP 36.8; O2SAT 97
== END 2024-05-13 23:42 | disposition home or self-care (01) ==
PROVIDERS: Emergency Provider Emergency Medicine; PCP Pediatrics
DX: S62.307A Unspecified fracture of fifth metacarpal bone, left hand, initial encounter for closed fracture (principal); M79.642 Pain in left hand; W22.8XXA Striking against or struck by other objects, initial encounter; Y93.89 Activity, other specified; Y92.002 Bathroom of unspecified non-institutional (private) residence as the place of occurrence of the external cause
CPT/HCPCS: 73120; 73130; 99283